=== PATIENT | male | born 1960 | race African-American/Black ===

== ENCOUNTER 2020-09-01 14:00 | Inpatient (IN) | payer OTHER ==
[2020-09-01] MEDS ORDERED: MENTHOL/PHENOL 1 EACH UD MM PRN (14:08)
[2020-09-01] MEDS ORDERED: guaiFENesin 200 MG/10 ML 10 ML UNIT-DOSE CUPS PO PRN (14:08)
[2020-09-01] MEDS ORDERED: MAG HYDROX/AL HYDROX/SIMETH 30 ML UNIT-DOSE CUP PO PRN (14:08)
[2020-09-01] MEDS ORDERED: ACETAMINOPHEN 325 MG TABLET (FP) PO PRN (14:08)
[2020-09-01] MEDS ORDERED: MAGNESIUM CITRATE 300 ML BOTTLE PO PRN (14:08)
[2020-09-01] MEDS ORDERED: NICOTINE POLACRILEX 2 MG GUM BUC PRN (14:08)
[2020-09-01] MEDS ORDERED: P-EPHED 60MG/TRIPROLIDI 2.5MG TABLET PO PRN (14:08)
[2020-09-01] MEDS ORDERED: MAGNESIUM HYDROX 2400MG/30ML ORAL SUSPENSION 30 ML CUP PO PRN (14:08)
[2020-09-01] MEDS ORDERED: LOPERAMIDE HCL 2 MG CAPSULE PO PRN (14:08)
[2020-09-01] MEDS ORDERED: PNEUMOC 13-VAL CONJ-DIP CRM/PF 0.5 ML DISP.SYRIN IM ONE (14:35)
[2020-09-01] MEDS: MELATONIN 5 MG TABLETS PO SCH (22:02)
[2020-09-01] MEDS: THIAMINE HCL 100 MG TABLET (FP) PO SCH (22:02)
[2020-09-01] MEDS: SENNOSIDES 8.6MG TABLET (FP) PO SCH (22:02)
[2020-09-02] MEDS: NICOTINE 7 MG/24 HOURS TOPICAL PATCH TD SCH (09:40)
[2020-09-02] MEDS: PRENATAL VITAMINS W/ FOLIC ACID TABLET (FP) PO SCH (09:40)
[2020-09-02] MEDS: hydrOXYzine PAMOATE 25 MG CAPSULE (FP) PO PRN (09:40)
[2020-09-02] MEDS: METHOCARBAMOL 500 MG TABLET PO PRN (09:41)
[2020-09-02] MEDS ORDERED: PNEUMOCOCCAL 23 VACCINE 0.5 ML VIAL IM ONE (12:00)
[2020-09-02] MEDS: SENNOSIDES 8.6MG TABLET (FP) PO SCH (23:50)
[2020-09-02] MEDS: THIAMINE HCL 100 MG TABLET (FP) PO SCH (23:50)
[2020-09-02] MEDS: MELATONIN 5 MG TABLETS PO SCH (23:50)
[2020-09-03] MEDS: hydrOXYzine PAMOATE 25 MG CAPSULE (FP) PO PRN ×2 (09:35→21:24)
[2020-09-03] MEDS: PRENATAL VITAMINS W/ FOLIC ACID TABLET (FP) PO SCH (09:35)
[2020-09-03] MEDS: NICOTINE 7 MG/24 HOURS TOPICAL PATCH TD SCH (09:35)
[2020-09-03] MEDS: METHOCARBAMOL 500 MG TABLET PO PRN ×2 (09:36→21:24)
[2020-09-03] MEDS: SENNOSIDES 8.6MG TABLET (FP) PO SCH (21:24)
[2020-09-03] MEDS: THIAMINE HCL 100 MG TABLET (FP) PO SCH (21:24)
[2020-09-03] MEDS: MELATONIN 5 MG TABLETS PO SCH (21:24)
[2020-09-04] MEDS: PRENATAL VITAMINS W/ FOLIC ACID TABLET (FP) PO SCH (09:50)
[2020-09-04] MEDS: NICOTINE 7 MG/24 HOURS TOPICAL PATCH TD SCH (09:50)
[2020-09-04] MEDS: IBUPROFEN 400 MG TABLET (FP) PO PRN ×2 (09:51→21:44)
[2020-09-04] MEDS: METHOCARBAMOL 500 MG TABLET PO PRN ×2 (09:51→21:44)
[2020-09-04] MEDS: SENNOSIDES 8.6MG TABLET (FP) PO SCH (21:44)
[2020-09-04] MEDS: hydrOXYzine PAMOATE 25 MG CAPSULE (FP) PO PRN (21:44)
[2020-09-04] MEDS: MELATONIN 5 MG TABLETS PO SCH (21:44)
[2020-09-04] MEDS: THIAMINE HCL 100 MG TABLET (FP) PO SCH (21:44)
[2020-09-05] MEDS: PRENATAL VITAMINS W/ FOLIC ACID TABLET (FP) PO SCH (09:36)
[2020-09-05] MEDS: IBUPROFEN 400 MG TABLET (FP) PO PRN ×2 (09:37→21:39)
[2020-09-05] MEDS: NICOTINE 7 MG/24 HOURS TOPICAL PATCH TD SCH (09:37)
[2020-09-05] MEDS: METHOCARBAMOL 500 MG TABLET PO PRN ×2 (09:37→21:39)
[2020-09-05] MEDS: SENNOSIDES 8.6MG TABLET (FP) PO SCH (21:40)
[2020-09-05] MEDS: MELATONIN 5 MG TABLETS PO SCH (21:40)
[2020-09-05] MEDS: THIAMINE HCL 100 MG TABLET (FP) PO SCH (21:41)
[2020-09-06] MEDS: IBUPROFEN 400 MG TABLET (FP) PO PRN ×2 (09:39→21:40)
[2020-09-06] MEDS: PRENATAL VITAMINS W/ FOLIC ACID TABLET (FP) PO SCH (09:40)
[2020-09-06] MEDS: METHOCARBAMOL 500 MG TABLET PO PRN ×2 (09:40→21:39)
[2020-09-06] MEDS: NICOTINE 7 MG/24 HOURS TOPICAL PATCH TD SCH (09:41)
[2020-09-06] MEDS: MELATONIN 5 MG TABLETS PO SCH (21:39)
[2020-09-06] MEDS: hydrOXYzine PAMOATE 25 MG CAPSULE (FP) PO PRN (21:39)
[2020-09-06] MEDS: THIAMINE HCL 100 MG TABLET (FP) PO SCH (21:39)
[2020-09-06] MEDS: SENNOSIDES 8.6MG TABLET (FP) PO SCH (21:39)
[2020-09-07] MEDS: NICOTINE 7 MG/24 HOURS TOPICAL PATCH TD SCH (09:46)
[2020-09-07] MEDS: IBUPROFEN 400 MG TABLET (FP) PO PRN ×2 (09:47→21:54)
[2020-09-07] MEDS: hydrOXYzine PAMOATE 25 MG CAPSULE (FP) PO PRN ×2 (09:47→21:53)
[2020-09-07] MEDS: METHOCARBAMOL 500 MG TABLET PO PRN ×2 (09:47→21:53)
[2020-09-07] MEDS: PRENATAL VITAMINS W/ FOLIC ACID TABLET (FP) PO SCH (09:47)
[2020-09-07] MEDS: SENNOSIDES 8.6MG TABLET (FP) PO SCH (21:54)
[2020-09-07] MEDS: MELATONIN 5 MG TABLETS PO SCH (21:54)
[2020-09-07] MEDS: THIAMINE HCL 100 MG TABLET (FP) PO SCH (21:54)
[2020-09-08] MEDS: PRENATAL VITAMINS W/ FOLIC ACID TABLET (FP) PO SCH (09:43)
[2020-09-08] MEDS: NICOTINE 7 MG/24 HOURS TOPICAL PATCH TD SCH (09:43)
[2020-09-08] MEDS: METHOCARBAMOL 500 MG TABLET PO PRN ×2 (09:44→21:32)
[2020-09-08] MEDS: IBUPROFEN 400 MG TABLET (FP) PO PRN ×2 (09:44→21:32)
[2020-09-08] MEDS: hydrOXYzine PAMOATE 25 MG CAPSULE (FP) PO PRN ×2 (09:44→21:31)
[2020-09-08] MEDS: THIAMINE HCL 100 MG TABLET (FP) PO SCH (21:31)
[2020-09-08] MEDS: MELATONIN 5 MG TABLETS PO SCH (21:31)
[2020-09-08] MEDS: SENNOSIDES 8.6MG TABLET (FP) PO SCH (21:31)
[2020-09-09] MEDS: PRENATAL VITAMINS W/ FOLIC ACID TABLET (FP) PO SCH (09:50)
[2020-09-09] MEDS: METHOCARBAMOL 500 MG TABLET PO PRN ×2 (09:50→21:29)
[2020-09-09] MEDS: NICOTINE 7 MG/24 HOURS TOPICAL PATCH TD SCH (09:50)
[2020-09-09] MEDS: hydrOXYzine PAMOATE 25 MG CAPSULE (FP) PO PRN ×2 (09:50→21:29)
[2020-09-09] MEDS: IBUPROFEN 400 MG TABLET (FP) PO PRN ×2 (09:50→21:29)
[2020-09-09] MEDS: THIAMINE HCL 100 MG TABLET (FP) PO SCH (21:29)
[2020-09-09] MEDS: SENNOSIDES 8.6MG TABLET (FP) PO SCH (21:29)
[2020-09-09] MEDS: MELATONIN 5 MG TABLETS PO SCH (21:29)
[2020-09-10] MEDS: PRENATAL VITAMINS W/ FOLIC ACID TABLET (FP) PO SCH (09:35)
[2020-09-10] MEDS: NICOTINE 7 MG/24 HOURS TOPICAL PATCH TD SCH (09:35)
[2020-09-10] MEDS: METHOCARBAMOL 500 MG TABLET PO PRN ×2 (09:36→21:17)
[2020-09-10] MEDS: IBUPROFEN 400 MG TABLET (FP) PO PRN ×2 (09:36→21:18)
[2020-09-10] MEDS: THIAMINE HCL 100 MG TABLET (FP) PO SCH (21:17)
[2020-09-10] MEDS: MELATONIN 5 MG TABLETS PO SCH (21:17)
[2020-09-10] MEDS: hydrOXYzine PAMOATE 25 MG CAPSULE (FP) PO PRN (21:17)
[2020-09-10] MEDS: SENNOSIDES 8.6MG TABLET (FP) PO SCH (21:18)
[2020-09-11] MEDS: NICOTINE 7 MG/24 HOURS TOPICAL PATCH TD SCH (10:03)
[2020-09-11] MEDS: METHOCARBAMOL 500 MG TABLET PO PRN ×2 (10:04→21:31)
[2020-09-11] MEDS: PRENATAL VITAMINS W/ FOLIC ACID TABLET (FP) PO SCH (10:04)
[2020-09-11] MEDS: IBUPROFEN 400 MG TABLET (FP) PO PRN ×2 (10:04→21:31)
[2020-09-11] MEDS: hydrOXYzine PAMOATE 25 MG CAPSULE (FP) PO PRN ×2 (10:04→21:30)
[2020-09-11] MEDS: MELATONIN 5 MG TABLETS PO SCH (21:30)
[2020-09-11] MEDS: SENNOSIDES 8.6MG TABLET (FP) PO SCH (21:30)
[2020-09-11] MEDS: THIAMINE HCL 100 MG TABLET (FP) PO SCH (21:31)
[2020-09-12] MEDS: PRENATAL VITAMINS W/ FOLIC ACID TABLET (FP) PO SCH (09:28)
[2020-09-12] MEDS: IBUPROFEN 400 MG TABLET (FP) PO PRN ×2 (09:28→21:21)
[2020-09-12] MEDS: METHOCARBAMOL 500 MG TABLET PO PRN ×2 (09:28→21:23)
[2020-09-12] MEDS: NICOTINE 7 MG/24 HOURS TOPICAL PATCH TD SCH (09:28)
[2020-09-12] MEDS: hydrOXYzine PAMOATE 25 MG CAPSULE (FP) PO PRN ×2 (09:28→21:19)
[2020-09-12] MEDS: MELATONIN 5 MG TABLETS PO SCH (21:19)
[2020-09-12] MEDS: SENNOSIDES 8.6MG TABLET (FP) PO SCH (21:19)
[2020-09-12] MEDS: THIAMINE HCL 100 MG TABLET (FP) PO SCH (21:20)
[2020-09-13] MEDS: METHOCARBAMOL 500 MG TABLET PO PRN ×2 (09:39→21:29)
[2020-09-13] MEDS: PRENATAL VITAMINS W/ FOLIC ACID TABLET (FP) PO SCH (09:39)
[2020-09-13] MEDS: NICOTINE 7 MG/24 HOURS TOPICAL PATCH TD SCH (09:39)
[2020-09-13] MEDS: IBUPROFEN 400 MG TABLET (FP) PO PRN ×2 (09:39→21:30)
[2020-09-13] MEDS: MELATONIN 5 MG TABLETS PO SCH (21:29)
[2020-09-13] MEDS: hydrOXYzine PAMOATE 25 MG CAPSULE (FP) PO PRN (21:29)
[2020-09-13] MEDS: SENNOSIDES 8.6MG TABLET (FP) PO SCH (21:29)
[2020-09-13] MEDS: THIAMINE HCL 100 MG TABLET (FP) PO SCH (21:30)
[2020-09-14] MEDS: IBUPROFEN 400 MG TABLET (FP) PO PRN (09:38)
[2020-09-14] MEDS: METHOCARBAMOL 500 MG TABLET PO PRN ×2 (09:38→21:16)
[2020-09-14] MEDS: PRENATAL VITAMINS W/ FOLIC ACID TABLET (FP) PO SCH (09:38)
[2020-09-14] MEDS: NICOTINE 7 MG/24 HOURS TOPICAL PATCH TD SCH (09:39)
[2020-09-14] MEDS: MELATONIN 5 MG TABLETS PO SCH (21:16)
[2020-09-14] MEDS: THIAMINE HCL 100 MG TABLET (FP) PO SCH (21:16)
[2020-09-14] MEDS: IBUPROFEN 600 MG TABLET (FP) PO PRN (21:16)
[2020-09-14] MEDS: SENNOSIDES 8.6MG TABLET (FP) PO SCH (21:17)
[2020-09-15 06:56] VITALS: BP 150/96; PULSE 108; TEMP 97.7
[2020-09-15] MEDS: METHOCARBAMOL 500 MG TABLET PO PRN (09:35)
[2020-09-15] MEDS: IBUPROFEN 600 MG TABLET (FP) PO PRN (09:35)
[2020-09-15] MEDS: PRENATAL VITAMINS W/ FOLIC ACID TABLET (FP) PO SCH (09:35)
[2020-09-15] MEDS: NICOTINE 7 MG/24 HOURS TOPICAL PATCH TD SCH (09:36)
== END 2020-09-15 12:30 | disposition home or self-care (01) | DRG 772 ==
LOC: YASAS 14:00 → Y5N 14:01
PROVIDERS: ADMIT Allergy & Immunology; ATTEND Allergy & Immunology
PROC: HZ42ZZZ Group Counseling for Substance Abuse Treatment, Cognitive-Behavioral (ICD-10-PCS; principal; 2020-09-01)
DX: F10.20 Alcohol dependence, uncomplicated (principal); F14.20 Cocaine dependence, uncomplicated; F17.210 Nicotine dependence, cigarettes, uncomplicated; Z87.81 Personal history of (healed) traumatic fracture; Z99.89 Dependence on other enabling machines and devices

== ENCOUNTER 2021-03-15 14:12 | Inpatient (IN) | payer OTHER ==
[2021-03-15] MEDS ORDERED: SODIUM CHLORIDE 0.9% 500 ML INFUS.BAG IV ONE (14:40)
[2021-03-15] MEDS ORDERED: ACETAMINOPHEN 1000 MG/100 ML VIAL (NON FORMULARY) IVPB ONE (14:51)
[2021-03-15] MEDS ORDERED: VANCOMYCIN 1 GM in D5W (PRE-DOCKED) 1,000 MG/250 ML IVPB ONE ×2 (14:52→18:45)
[2021-03-15] MEDS ORDERED: PIPERACILLIN/TAZOB 3.375 GM 3.375 GM in DEXTROSE 5%-WATER - 50 ML IVPB ONE (14:53)
[2021-03-15] MEDS ORDERED: ACETAMINOPHEN INJECTION 100 ML IVPB ONE (15:13)
[2021-03-15] MEDS ORDERED: VANCOMYCIN 1 GRAM (PRE-DOCKED) 1,000 MG/250 ML BAG IVPB ONE (15:13)
[2021-03-15] MEDS ORDERED: PIPERACILLIN/TAZOB 3.375 GM 3.375 GM/50 ML BAG IVPB ONE (15:14)
[2021-03-15 15:16] LABS: BASO % 0.7 % (0-2.0); EOS % 2.9 % (0-4.5); HEMATOCRIT 33.2 % (35.4-49); HEMOGLOBIN 11.1 GM/dL (11.7-16.9); LYMPH % 34.7 % (8-40); MCH 31.6 pg (25.7-33.7); MCHC 33.4 g/dl (32.0-35.9); MEAN CELL VOLUME 94.7 fl (80-96); MEAN PLT VOLUME 7.1 fl (7.5-11.1); MONO % 9.7 % (3.8-10.2); PLATELET COUNT 267 K/MM3 (134-434); RBC 3.51 M/mm3 (4.00-5.60); RDW 16.1 % (11.9-15.9); WHITE BLOOD COUNT 4.2 K/mm3 (4.0-10.0)
[2021-03-15 15:30] LABS: CALCIUM 8.3 mg/dL (8.5-10.1)
[2021-03-15 15:31] LABS: ALBUMIN 2.9 g/dl (3.4-5.0); BLOOD UREA NITROGEN 6.1 mg/dL (7-18)
[2021-03-15 15:34] LABS: CREATININE 0.6 mg/dL (0.55-1.3)
[2021-03-15 15:36] LABS: BILIRUBIN,TOTAL 0.2 mg/dL (0.2-1); TOT PROT 7.3 g/dl (6.4-8.2)
[2021-03-15 15:37] LABS: LACTIC ACID 2.4 mmol/L (0.4-2.0)
[2021-03-15 16:02] LABS: ERYTHROCYTE SEDIMENTATION RATE 45 mm/hr (0-20)
[2021-03-15] MEDS ORDERED: chlordiazePOXIDE HCL 25 MG CAPSULE PO ONE (16:42)
[2021-03-15] MEDS ORDERED: chlordiazePOXIDE HCL 25 MG CAPSULE ONE (17:02)
[2021-03-15] MEDS ORDERED: POTASSIUM CHLORIDE TABS 20 MEQ TABLET.ER (FP) PO ONE ×2 (18:05→18:27)
[2021-03-15] MEDS ORDERED: FOLIC ACID 1 MG TABLET (FP) PO ONE (18:08)
[2021-03-15] MEDS ORDERED: FOLIC ACID 1 MG TABLET (FP) ONE (18:27)
[2021-03-15] MEDS ORDERED: chlordiazePOXIDE HCL 25 MG CAPSULE PO PRN (18:32)
[2021-03-15] MEDS: LACTATED RINGERS SOLUTION 1,000 ML/1,000 ML INFUS.BAG IV SCH (23:19)
[2021-03-15] MEDS: chlordiazePOXIDE HCL 25 MG CAPSULE PO SCH (23:20)
[2021-03-16 00:20] VITALS: BMI 31.9
[2021-03-16] MEDS ORDERED: PIPERACILLIN/TAZOBACTAM 3.375 GM VIAL IVPB ONE ×2 (00:45→09:51)
[2021-03-16] MEDS ORDERED: DEXTROSE 5%-WATER - 50 ML IVPB ONE ×2 (00:45→09:51)
[2021-03-16] MEDS: PIPERACILLIN/TAZOB 3.375 GM 3.375 GM in DEXTROSE 5%-WATER - 50 ML IVPB SCH ×3 (01:18→15:38)
[2021-03-16 01:57] LABS: METHADONE, UR NEGATIVE ng/ml (CUTOFF=300); OPIATES, URI NEGATIVE ng/ml (CUTOFF=300); URINE AMPHETAMINES NEGATIVE ng/ml (CUTOFF=500); URINE BARBITURATES NEGATIVE ng/ml (CUTOFF=200); URINE BENZODIAZEPINES NEGATIVE ng/ml (CUTOFF=200)
[2021-03-16 01:58] LABS: PHENCYCLIDINE,URINE NEGATIVE ng/ml (CUTOFF=25)
[2021-03-16 02:03] LABS: COCAINE, UR POSITIVE ng/ml (CUTOFF=300)
[2021-03-16] MEDS: chlordiazePOXIDE HCL 25 MG CAPSULE PO SCH ×4 (05:21→22:34)
[2021-03-16 08:42] LABS: HEMATOCRIT 32.7 % (35.4-49); HEMOGLOBIN 11.2 GM/dL (11.7-16.9); MCH 32.3 pg (25.7-33.7); MCHC 34.2 g/dl (32.0-35.9); MEAN CELL VOLUME 94.3 fl (80-96); MEAN PLT VOLUME 7.4 fl (7.5-11.1); PLATELET COUNT 267 K/MM3 (134-434); RBC 3.47 M/mm3 (4.00-5.60); RDW 16.2 % (11.9-15.9); WHITE BLOOD COUNT 4.4 K/mm3 (4.0-10.0)
[2021-03-16 09:04] LABS: BLOOD UREA NITROGEN 5.5 mg/dL (7-18); MAGNESIUM 1.7 mg/dL (1.8-2.4)
[2021-03-16 09:07] LABS: CREATININE 0.7 mg/dL (0.55-1.3); PHOSPHOROUS 3.3 mg/dL (2.5-4.9)
[2021-03-16] MEDS ORDERED: VANCOMYCIN 1 GM in D5W (PRE-DOCKED) 1,000 MG/250 ML IVPB SCH (10:00)
[2021-03-16] MEDS: MULTIVITAMINS (DAILY MVI) TABLET (FP) PO SCH (10:07)
[2021-03-16] MEDS: THIAMINE HCL 100 MG TABLET (FP) PO SCH (10:07)
[2021-03-16] MEDS: ENOXAPARIN NA (PORCINE) 40 MG/0.4 ML DISP.SYRIN SQ SCH (10:07)
[2021-03-16] MEDS ORDERED: MAGNESIUM SULF 50% (8.12 MEQ/2 ML-1 GM VIAL) IVPB ONE (14:00)
[2021-03-16] MEDS: LACTATED RINGERS SOLUTION 1,000 ML/1,000 ML INFUS.BAG IV SCH ×2 (14:06→19:17)
[2021-03-16] MEDS: CEFAZOLIN 2 GM/D5W 2 GM/50 ML ML IVPB SCH ×2 (14:39→17:52)
[2021-03-17] MEDS: CEFAZOLIN 2 GM/D5W 2 GM/50 ML ML IVPB SCH ×3 (01:13→17:34)
[2021-03-17] MEDS: chlordiazePOXIDE HCL 25 MG CAPSULE PO SCH ×4 (05:51→22:17)
[2021-03-17 09:20] LABS: HEMATOCRIT 34.6 % (35.4-49); HEMOGLOBIN 11.7 GM/dL (11.7-16.9); MEAN CELL VOLUME 94.2 fl (80-96); MEAN PLT VOLUME 7.3 fl (7.5-11.1); PLATELET COUNT 264 K/MM3 (134-434); RBC 3.67 M/mm3 (4.00-5.60); RDW 16.2 % (11.9-15.9); WHITE BLOOD COUNT 4.7 K/mm3 (4.0-10.0)
[2021-03-17] MEDS: ENOXAPARIN NA (PORCINE) 40 MG/0.4 ML DISP.SYRIN SQ SCH (09:39)
[2021-03-17] MEDS: MULTIVITAMINS (DAILY MVI) TABLET (FP) PO SCH (09:39)
[2021-03-17] MEDS: THIAMINE HCL 100 MG TABLET (FP) PO SCH (09:39)
[2021-03-17] MEDS: LACTATED RINGERS SOLUTION 1,000 ML/1,000 ML INFUS.BAG IV SCH (09:39)
[2021-03-17 09:57] LABS: ALBUMIN 2.8 g/dl (3.4-5.0); BLOOD UREA NITROGEN 7.9 mg/dL (7-18); CALCIUM 8.6 mg/dL (8.5-10.1)
[2021-03-17 09:58] LABS: MAGNESIUM 1.7 mg/dL (1.8-2.4)
[2021-03-17 10:00] LABS: CREATININE 0.8 mg/dL (0.55-1.3)
[2021-03-17 10:01] LABS: BILIRUBIN,TOTAL 0.5 mg/dL (0.2-1)
[2021-03-17] MEDS: amLODIPine BESYLATE 10 MG TABLET (FP) PO SCH (13:54)
[2021-03-17] MEDS: AMINO ACIDS/PROTEIN HYDROLYS 30 ML LIQUID.PKT PO SCH (17:33)
[2021-03-18] MEDS ORDERED: chlordiazePOXIDE HCL 10 MG CAPSULE PO PRN
[2021-03-18] MEDS: CEFAZOLIN 2 GM/D5W 2 GM/50 ML ML IVPB SCH ×3 (02:15→17:43)
[2021-03-18] MEDS: chlordiazePOXIDE HCL 10 MG CAPSULE PO SCH ×4 (05:30→22:31)
[2021-03-18] MEDS: AMINO ACIDS/PROTEIN HYDROLYS 30 ML LIQUID.PKT PO SCH ×2 (08:29→17:44)
[2021-03-18 08:49] LABS: BASO % 0.7 % (0-2.0); EOS % 2.4 % (0-4.5); HEMOGLOBIN 11.7 GM/dL (11.7-16.9); LYMPH % 31.6 % (8-40); MCH 31.7 pg (25.7-33.7); MCHC 33.4 g/dl (32.0-35.9); MEAN CELL VOLUME 94.7 fl (80-96); MEAN PLT VOLUME 7.7 fl (7.5-11.1); MONO % 8.8 % (3.8-10.2); NEUT % 56.5 % (42.8-82.8); PLATELET COUNT 266 K/MM3 (134-434); RDW 15.8 % (11.9-15.9); WHITE BLOOD COUNT 4.9 K/mm3 (4.0-10.0)
[2021-03-18 09:09] LABS: ALBUMIN 3.1 g/dl (3.4-5.0); BLOOD UREA NITROGEN 12.6 mg/dL (7-18); CALCIUM 8.6 mg/dL (8.5-10.1)
[2021-03-18 09:12] LABS: CREATININE 0.7 mg/dL (0.55-1.3)
[2021-03-18 09:14] LABS: BILIRUBIN,TOTAL 0.4 mg/dL (0.2-1); TOT PROT 7.5 g/dl (6.4-8.2)
[2021-03-18] MEDS: MULTIVITAMINS (DAILY MVI) TABLET (FP) PO SCH (10:13)
[2021-03-18] MEDS: amLODIPine BESYLATE 10 MG TABLET (FP) PO SCH (10:13)
[2021-03-18] MEDS: ENOXAPARIN NA (PORCINE) 40 MG/0.4 ML DISP.SYRIN SQ SCH ×2 (10:13→10:17)
[2021-03-18] MEDS: THIAMINE HCL 100 MG TABLET (FP) PO SCH (10:13)
[2021-03-18] MEDS ORDERED: DEXTROSE 5%-WATER 100 ML IVPB ONE (18:13)
[2021-03-18] MEDS: CEFTRIAXONE 2 GM in DEXTROSE 5%-WATER 100 ML IVPB SCH (18:15)
[2021-03-19] MEDS ORDERED: chlordiazePOXIDE HCL 10 MG CAPSULE PO SCH (05:00)
[2021-03-19] MEDS: chlordiazePOXIDE HCL 10 MG CAPSULE PO SCH ×2 (05:49→17:49)
[2021-03-19 08:49] LABS: BASO % 0.3 % (0-2.0); EOS % 2.3 % (0-4.5); HEMATOCRIT 35.4 % (35.4-49); HEMOGLOBIN 11.8 GM/dL (11.7-16.9); LYMPH % 31.3 % (8-40); MCH 31.7 pg (25.7-33.7); MCHC 33.3 g/dl (32.0-35.9); MEAN CELL VOLUME 95.3 fl (80-96); MEAN PLT VOLUME 7.6 fl (7.5-11.1); MONO % 7.9 % (3.8-10.2); NEUT % 58.2 % (42.8-82.8); PLATELET COUNT 262 K/MM3 (134-434); RBC 3.72 M/mm3 (4.00-5.60); RDW 16.3 % (11.9-15.9); WHITE BLOOD COUNT 4.6 K/mm3 (4.0-10.0)
[2021-03-19] MEDS ORDERED: DEXTROSE 5%-WATER 100 ML IVPB ONE (09:10)
[2021-03-19 09:18] LABS: ALBUMIN 3.1 g/dl (3.4-5.0); BLOOD UREA NITROGEN 16.6 mg/dL (7-18); CALCIUM 8.4 mg/dL (8.5-10.1)
[2021-03-19] MEDS: ENOXAPARIN NA (PORCINE) 40 MG/0.4 ML DISP.SYRIN SQ SCH ×2 (09:19→09:35)
[2021-03-19] MEDS: AMINO ACIDS/PROTEIN HYDROLYS 30 ML LIQUID.PKT PO SCH ×3 (09:19→17:49)
[2021-03-19] MEDS: amLODIPine BESYLATE 10 MG TABLET (FP) PO SCH (09:20)
[2021-03-19] MEDS: CEFTRIAXONE 2 GM in DEXTROSE 5%-WATER 100 ML IVPB SCH (09:20)
[2021-03-19] MEDS: MULTIVITAMINS (DAILY MVI) TABLET (FP) PO SCH (09:21)
[2021-03-19] MEDS: THIAMINE HCL 100 MG TABLET (FP) PO SCH (09:21)
[2021-03-19 09:22] LABS: CREATININE 0.7 mg/dL (0.55-1.3)
[2021-03-19 09:23] LABS: BILIRUBIN,TOTAL 0.5 mg/dL (0.2-1); TOT PROT 7.5 g/dl (6.4-8.2)
[2021-03-20] MEDS ORDERED: chlordiazePOXIDE HCL 10 MG CAPSULE PO ONE (05:00)
[2021-03-20] MEDS: AMINO ACIDS/PROTEIN HYDROLYS 30 ML LIQUID.PKT PO SCH ×2 (08:00→17:13)
[2021-03-20 09:02] LABS: BASO % 0.4 % (0-2.0); EOS % 2.8 % (0-4.5); HEMATOCRIT 37.5 % (35.4-49); HEMOGLOBIN 12.5 GM/dL (11.7-16.9); LYMPH % 30.7 % (8-40); MCH 31.7 pg (25.7-33.7); MCHC 33.3 g/dl (32.0-35.9); MEAN CELL VOLUME 95.3 fl (80-96); MEAN PLT VOLUME 7.7 fl (7.5-11.1); MONO % 8.5 % (3.8-10.2); NEUT % 57.6 % (42.8-82.8); PLATELET COUNT 274 K/MM3 (134-434); RBC 3.94 M/mm3 (4.00-5.60); RDW 16.1 % (11.9-15.9); WHITE BLOOD COUNT 4.8 K/mm3 (4.0-10.0)
[2021-03-20] MEDS ORDERED: DEXTROSE 5%-WATER 100 ML IVPB ONE (09:02)
[2021-03-20 09:33] LABS: BLOOD UREA NITROGEN 14.8 mg/dL (7-18)
[2021-03-20 09:43] LABS: CREATININE 0.6 mg/dL (0.55-1.3)
[2021-03-20] MEDS ORDERED: PT OWN MED DRAWER 7, Y5N ONE (09:49)
[2021-03-20] MEDS: MULTIVITAMINS (DAILY MVI) TABLET (FP) PO SCH (10:13)
[2021-03-20] MEDS: amLODIPine BESYLATE 10 MG TABLET (FP) PO SCH (10:13)
[2021-03-20] MEDS: ENOXAPARIN NA (PORCINE) 40 MG/0.4 ML DISP.SYRIN SQ SCH ×2 (10:14→10:21)
[2021-03-20] MEDS: CEFTRIAXONE 2 GM in DEXTROSE 5%-WATER 100 ML IVPB SCH (10:14)
[2021-03-20] MEDS: THIAMINE HCL 100 MG TABLET (FP) PO SCH (10:14)
[2021-03-21 08:47] VITALS: BP 118/73; PULSE 90; TEMP 97.8
[2021-03-21] MEDS: MULTIVITAMINS (DAILY MVI) TABLET (FP) PO SCH (08:59)
[2021-03-21] MEDS: THIAMINE HCL 100 MG TABLET (FP) PO SCH (08:59)
[2021-03-21] MEDS: amLODIPine BESYLATE 10 MG TABLET (FP) PO SCH (08:59)
[2021-03-21] MEDS: AMINO ACIDS/PROTEIN HYDROLYS 30 ML LIQUID.PKT PO SCH (08:59)
[2021-03-21] MEDS: ENOXAPARIN NA (PORCINE) 40 MG/0.4 ML DISP.SYRIN SQ SCH ×2 (09:03→09:04)
== END 2021-03-21 10:29 | disposition left against medical advice (07) | DRG 383 ==
LOC: JER 14:12 → JERBED 15:42 → J8W 22:27
PROVIDERS: ATTEND Internal Medicine
DX: L03.116 Cellulitis of left lower limb (principal); F10.239 Alcohol dependence with withdrawal, unspecified; Z59.0 Homelessness; E78.5 Hyperlipidemia, unspecified; F17.210 Nicotine dependence, cigarettes, uncomplicated; I10 Essential (primary) hypertension; F14.20 Cocaine dependence, uncomplicated; L97.829 Non-pressure chronic ulcer of other part of left lower leg with unspecified severity; E83.42 Hypomagnesemia
CPT/HCPCS: 36415; 73590-TC-LT-FY; 73610-TC-LT-FY; 73630-TC-LT; 80048; 80053; 80307; 82607; 82728; 82746; 82962; 83036; 83540; 83550; 83605; 83735; 84100; 84466; 85025; 85027; 85651; 86140; 86780; 87040; 87070; 87186; 87205; 93005; 93010; 93971-TC; 99285-25; C9803; J0131; U0003; U0005

== ENCOUNTER 2021-08-16 15:06 | Inpatient (IN) | payer OTHER ==
[2021-08-16] MEDS ORDERED: MAGNESIUM CITRATE 300 ML BOTTLE PO PRN (18:48)
[2021-08-16] MEDS ORDERED: IBUPROFEN 400 MG TABLET (FP) PO PRN (18:48)
[2021-08-16] MEDS ORDERED: BISMUTH SUBSALICYLATE 524 MG/30 ML PO PRN (18:48)
[2021-08-16] MEDS ORDERED: MAGNESIUM HYDROX 2400MG/30ML ORAL SUSPENSION 30 ML CUP PO PRN (18:48)
[2021-08-16] MEDS ORDERED: MAG HYDROX/AL HYDROX/SIMETH 30 ML UNIT-DOSE CUP PO PRN (18:48)
[2021-08-16] MEDS ORDERED: ACETAMINOPHEN 325 MG TABLET (FP) PO PRN ×2 (18:48)
[2021-08-16] MEDS ORDERED: LORazepam 1 MG TABLET PO PRN (18:48)
[2021-08-16] MEDS ORDERED: MENTHOL/PHENOL 1 EACH UD MM PRN (18:48)
[2021-08-16] MEDS ORDERED: ONDANSETRON *ODT* 4 MG TABLET SL PRN (18:48)
[2021-08-16 20:28] VITALS: BMI 34.7
[2021-08-17] MEDS: LORazepam 2 MG TABLET PO SCH ×7 (00:34→22:37)
[2021-08-17] MEDS ORDERED: hydrOXYzine PAMOATE 25 MG CAPSULE (FP) PO ONE (00:35)
[2021-08-17] MEDS: hydrOXYzine PAMOATE 25 MG CAPSULE (FP) PO SCH ×6 (00:39→22:38)
[2021-08-17] MEDS: MELATONIN 5 MG TABLETS PO SCH ×2 (00:39→22:37)
[2021-08-17] MEDS: THIAMINE HCL 100 MG TABLET (FP) PO SCH ×2 (00:39→22:39)
[2021-08-17] MEDS: PRENATAL VITAMINS W/ FOLIC ACID TABLET (FP) PO SCH (10:15)
[2021-08-17 11:46] LABS: CALCIUM 8.4 mg/dL (8.5-10.1)
[2021-08-17 11:47] LABS: ALBUMIN 2.7 g/dl (3.4-5.0); BLOOD UREA NITROGEN 8.9 mg/dL (7-18)
[2021-08-17 11:50] LABS: BILIRUBIN,TOTAL 0.7 mg/dL (0.2-1); CREATININE 0.7 mg/dL (0.55-1.3); HEMOGLOBIN 11.1 GM/dL (11.7-16.9); MCH 32.1 pg (25.7-33.7); MCHC 33.7 g/dl (32.0-35.9); MEAN CELL VOLUME 95.5 fl (80-96); MEAN PLT VOLUME 8.3 fl (7.5-11.1); PLATELET COUNT 208 10^3/uL (134-434); RBC 3.45 M/mm3 (4.00-5.60); RDW 16.7 % (11.9-15.9); TOT PROT 6.9 g/dl (6.4-8.2); WHITE BLOOD COUNT 4.3 K/mm3 (4.0-10.0)
[2021-08-18] MEDS: LORazepam 1 MG TABLET PO SCH ×4 (07:13→22:08)
[2021-08-18] MEDS: hydrOXYzine PAMOATE 25 MG CAPSULE (FP) PO SCH ×5 (07:14→22:35)
[2021-08-18] MEDS: PRENATAL VITAMINS W/ FOLIC ACID TABLET (FP) PO SCH (11:03)
[2021-08-18 18:09] LABS: PH,URINE 8.5 (5.0-8.0); URINE APPEARANCE CLEAR; URINE BILIRUBIN NEGATIVE (NEGATIVE); URINE COLOR YELLOW; URINE GLUCOSE (UA) NEGATIVE (NEGATIVE); URINE KETONE NEGATIVE (NEGATIVE); URINE LEUK ESTERASE NEGATIVE (NEGATIVE); URINE NITRITE NEGATIVE (NEGATIVE); URINE PROTEIN NEGATIVE (NEGATIVE); URINE UROBILINOGEN 0.2 mg/dL (0.2-1.0)
[2021-08-18] MEDS: METHOCARBAMOL 500 MG TABLET PO PRN (21:03)
[2021-08-18] MEDS: MELATONIN 5 MG TABLETS PO SCH (21:32)
[2021-08-18] MEDS: THIAMINE HCL 100 MG TABLET (FP) PO SCH (21:35)
[2021-08-18] MEDS ORDERED: PHENYLEPHRINE 0.25%/STARCH 1 EACH SUPP.RECT PR SCH (22:00)
[2021-08-18] MEDS: PHENYLEPHRINE 0.25%/STARCH 1 EACH SUPP.RECT PR SCH (22:37)
[2021-08-19] MEDS ORDERED: LORazepam 0.5 MG TABLET PO PRN
[2021-08-19] MEDS: hydrOXYzine PAMOATE 25 MG CAPSULE (FP) PO SCH ×5 (06:37→22:09)
[2021-08-19] MEDS: LORazepam 0.5 MG TABLET PO SCH ×4 (06:37→22:10)
[2021-08-19] MEDS: PHENYLEPHRINE 0.25%/STARCH 1 EACH SUPP.RECT PR SCH ×2 (10:25→22:10)
[2021-08-19] MEDS: METHOCARBAMOL 500 MG TABLET PO PRN (10:26)
[2021-08-19] MEDS: PRENATAL VITAMINS W/ FOLIC ACID TABLET (FP) PO SCH (10:27)
[2021-08-19 12:18] LABS: BASO % 0.2 % (0-2.0); EOS % 1.6 % (0-4.5); MCH 32.3 pg (25.7-33.7); MCHC 34.2 g/dl (32.0-35.9); MEAN CELL VOLUME 94.3 fl (80-96); MEAN PLT VOLUME 8.6 fl (7.5-11.1); MONO % 5.7 % (3.8-10.2); NEUT % 58.5 % (42.8-82.8); PLATELET COUNT 226 10^3/uL (134-434); RBC 3.71 M/mm3 (4.00-5.60); RDW 16.2 % (11.9-15.9); WHITE BLOOD COUNT 5.7 K/mm3 (4.0-10.0)
[2021-08-19 14:51] LABS: PH,URINE 6.5 (5.0-8.0); URINE APPEARANCE CLEAR; URINE BILIRUBIN NEGATIVE (NEGATIVE); URINE COLOR YELLOW; URINE GLUCOSE (UA) NEGATIVE (NEGATIVE); URINE KETONE NEGATIVE (NEGATIVE); URINE LEUK ESTERASE NEGATIVE (NEGATIVE); URINE NITRITE NEGATIVE (NEGATIVE); URINE PROTEIN NEGATIVE (NEGATIVE); URINE UROBILINOGEN 0.2 mg/dL (0.2-1.0)
[2021-08-19] MEDS: MELATONIN 5 MG TABLETS PO SCH (22:09)
[2021-08-19] MEDS: THIAMINE HCL 100 MG TABLET (FP) PO SCH (22:09)
[2021-08-20] MEDS ORDERED: LORazepam 0.5 MG TABLET PO ONE (05:00)
[2021-08-20] MEDS: hydrOXYzine PAMOATE 25 MG CAPSULE (FP) PO SCH ×2 (06:36→10:52)
[2021-08-20] MEDS: METHOCARBAMOL 500 MG TABLET PO PRN (06:36)
[2021-08-20 09:24] VITALS: TEMP 97.1
[2021-08-20] MEDS: PHENYLEPHRINE 0.25%/STARCH 1 EACH SUPP.RECT PR SCH (10:52)
[2021-08-20] MEDS: PRENATAL VITAMINS W/ FOLIC ACID TABLET (FP) PO SCH (10:52)
[2021-08-20 13:37] VITALS: BP 138/96; PULSE 108
== END 2021-08-20 14:59 | disposition other institution (70) | DRG 774 ==
LOC: YASAS 15:06 → Y6N 23:27 → Y3N 08-17 10:06
PROVIDERS: ADMIT Allergy & Immunology; ATTEND Allergy & Immunology
PROC: HZ2ZZZZ Detoxification Services for Substance Abuse Treatment (ICD-10-PCS; principal; 2021-08-16)
DX: F10.230 Alcohol dependence with withdrawal, uncomplicated (principal); F14.20 Cocaine dependence, uncomplicated; F17.210 Nicotine dependence, cigarettes, uncomplicated; E78.5 Hyperlipidemia, unspecified; I10 Essential (primary) hypertension; K64.9 Unspecified hemorrhoids; R60.0 Localized edema; Z99.89 Dependence on other enabling machines and devices; Z86.79 Personal history of other diseases of the circulatory system; Z87.19 Personal history of other diseases of the digestive system
CPT/HCPCS: 36415; 80053; 81003; 85025; 85027; 86780; C9803; U0003; U0005

== ENCOUNTER 2021-08-20 14:59 | Inpatient (IN) | payer OTHER ==
[2021-08-20] MEDS ORDERED: NICOTINE 10 MG CARTRIDGE (INHALER) IH PRN (15:58)
[2021-08-20] MEDS ORDERED: LOPERAMIDE HCL 2 MG CAPSULE PO PRN (15:58)
[2021-08-20] MEDS ORDERED: ACETAMINOPHEN 325 MG TABLET (FP) PO PRN (15:58)
[2021-08-20] MEDS ORDERED: MENTHOL/PHENOL 1 EACH UD MM PRN (15:58)
[2021-08-20] MEDS ORDERED: P-EPHED 60MG/TRIPROLIDI 2.5MG TABLET PO PRN (15:58)
[2021-08-20] MEDS ORDERED: MAGNESIUM CITRATE 300 ML BOTTLE PO PRN (15:58)
[2021-08-20] MEDS ORDERED: MAGNESIUM HYDROX 2400MG/30ML ORAL SUSPENSION 30 ML CUP PO PRN (15:58)
[2021-08-20] MEDS ORDERED: MAG HYDROX/AL HYDROX/SIMETH 30 ML UNIT-DOSE CUP PO PRN (15:58)
[2021-08-20] MEDS: THIAMINE HCL 100 MG TABLET (FP) PO SCH (21:39)
[2021-08-20] MEDS: hydrOXYzine PAMOATE 25 MG CAPSULE (FP) PO PRN (21:39)
[2021-08-20] MEDS: IBUPROFEN 400 MG TABLET (FP) PO PRN (21:39)
[2021-08-20] MEDS: MELATONIN 5 MG TABLETS PO SCH (21:39)
[2021-08-21] MEDS: PRENATAL VITAMINS W/ FOLIC ACID TABLET (FP) PO SCH (09:57)
[2021-08-21] MEDS: AMMONIUM LACTATE 12% LOTION 225 GM BOTTLE TP SCH ×2 (09:57→22:53)
[2021-08-21] MEDS: NICOTINE 7 MG/24 HOURS TOPICAL PATCH TD SCH (09:57)
[2021-08-21] MEDS: IBUPROFEN 400 MG TABLET (FP) PO PRN (09:59)
[2021-08-21] MEDS: ASPIRIN 81 MG CHEWABLE TABLETS PO SCH (11:07)
[2021-08-21] MEDS: BACITRACIN/POLYMYXIN B SULFATE 15 GM TUBE TP SCH ×2 (11:07→22:53)
[2021-08-21] MEDS: hydrOXYzine PAMOATE 25 MG CAPSULE (FP) PO PRN (21:53)
[2021-08-21] MEDS: THIAMINE HCL 100 MG TABLET (FP) PO SCH (21:53)
[2021-08-21] MEDS: MELATONIN 5 MG TABLETS PO SCH (21:53)
[2021-08-21] MEDS: traZODone HCL 50 MG TABLET (FP) PO PRN (21:53)
[2021-08-22] MEDS: NICOTINE 7 MG/24 HOURS TOPICAL PATCH TD SCH (09:53)
[2021-08-22] MEDS: ASPIRIN 81 MG CHEWABLE TABLETS PO SCH (09:55)
[2021-08-22] MEDS: PRENATAL VITAMINS W/ FOLIC ACID TABLET (FP) PO SCH (09:55)
[2021-08-22] MEDS: AMMONIUM LACTATE 12% LOTION 225 GM BOTTLE TP SCH ×2 (09:56→21:53)
[2021-08-22] MEDS: BACITRACIN/POLYMYXIN B SULFATE 15 GM TUBE TP SCH ×2 (09:56→21:54)
[2021-08-22] MEDS: DOCUSATE SODIUM 100 MG CAPSULE (FP) PO SCH ×2 (14:37→21:53)
[2021-08-22] MEDS: THIAMINE HCL 100 MG TABLET (FP) PO SCH (21:52)
[2021-08-22] MEDS: traZODone HCL 50 MG TABLET (FP) PO PRN (21:53)
[2021-08-22] MEDS: MELATONIN 5 MG TABLETS PO SCH (21:55)
[2021-08-22] MEDS: hydrOXYzine PAMOATE 25 MG CAPSULE (FP) PO PRN (21:56)
[2021-08-23] MEDS: DOCUSATE SODIUM 100 MG CAPSULE (FP) PO SCH ×3 (06:47→22:00)
[2021-08-23] MEDS: ASPIRIN 81 MG CHEWABLE TABLETS PO SCH (09:57)
[2021-08-23] MEDS: hydrOXYzine PAMOATE 25 MG CAPSULE (FP) PO PRN (09:57)
[2021-08-23] MEDS: PRENATAL VITAMINS W/ FOLIC ACID TABLET (FP) PO SCH (09:57)
[2021-08-23] MEDS: BACITRACIN/POLYMYXIN B SULFATE 15 GM TUBE TP SCH ×2 (09:57→22:44)
[2021-08-23] MEDS: NICOTINE 7 MG/24 HOURS TOPICAL PATCH TD SCH (09:58)
[2021-08-23] MEDS: AMMONIUM LACTATE 12% LOTION 225 GM BOTTLE TP SCH ×2 (09:59→22:00)
[2021-08-23] MEDS: METHYL SALICYLATE/MENTHOL OINT 30 GM TUBE TP SCH ×2 (15:28→22:01)
[2021-08-23] MEDS: traZODone HCL 50 MG TABLET (FP) PO PRN (22:00)
[2021-08-23] MEDS: THIAMINE HCL 100 MG TABLET (FP) PO SCH (22:00)
[2021-08-23] MEDS: MELATONIN 5 MG TABLETS PO SCH (22:00)
[2021-08-23] MEDS: hydrOXYzine PAMOATE 50 MG CAPSULE (FP) PO PRN (22:00)
[2021-08-24] MEDS: DOCUSATE SODIUM 100 MG CAPSULE (FP) PO SCH ×3 (06:42→21:39)
[2021-08-24] MEDS ORDERED: PT OWN MED DRAWER 7, Y5N ONE (10:18)
[2021-08-24] MEDS: METHYL SALICYLATE/MENTHOL OINT 30 GM TUBE TP SCH ×2 (12:08→21:39)
[2021-08-24] MEDS: NICOTINE 7 MG/24 HOURS TOPICAL PATCH TD SCH (12:09)
[2021-08-24] MEDS: AMMONIUM LACTATE 12% LOTION 225 GM BOTTLE TP SCH ×2 (12:09→21:38)
[2021-08-24] MEDS: PRENATAL VITAMINS W/ FOLIC ACID TABLET (FP) PO SCH (12:20)
[2021-08-24] MEDS: BACITRACIN/POLYMYXIN B SULFATE 15 GM TUBE TP SCH ×2 (12:20→21:39)
[2021-08-24] MEDS: ASPIRIN 81 MG CHEWABLE TABLETS PO SCH (12:20)
[2021-08-24] MEDS: THIAMINE HCL 100 MG TABLET (FP) PO SCH (21:36)
[2021-08-24] MEDS: traZODone HCL 50 MG TABLET (FP) PO PRN (21:36)
[2021-08-24] MEDS: MELATONIN 5 MG TABLETS PO SCH (21:37)
[2021-08-25] MEDS: DOCUSATE SODIUM 100 MG CAPSULE (FP) PO SCH ×3 (06:18→21:27)
[2021-08-25] MEDS: BACITRACIN/POLYMYXIN B SULFATE 15 GM TUBE TP SCH ×2 (11:58→21:28)
[2021-08-25] MEDS: PRENATAL VITAMINS W/ FOLIC ACID TABLET (FP) PO SCH (11:58)
[2021-08-25] MEDS: AMMONIUM LACTATE 12% LOTION 225 GM BOTTLE TP SCH ×2 (11:58→21:28)
[2021-08-25] MEDS: NICOTINE 7 MG/24 HOURS TOPICAL PATCH TD SCH (11:58)
[2021-08-25] MEDS: METHYL SALICYLATE/MENTHOL OINT 30 GM TUBE TP SCH ×2 (11:58→21:27)
[2021-08-25] MEDS: ASPIRIN 81 MG CHEWABLE TABLETS PO SCH (11:58)
[2021-08-25] MEDS: MELATONIN 5 MG TABLETS PO SCH (21:27)
[2021-08-25] MEDS: THIAMINE HCL 100 MG TABLET (FP) PO SCH (21:27)
[2021-08-25] MEDS: hydrOXYzine PAMOATE 50 MG CAPSULE (FP) PO PRN (21:28)
[2021-08-25] MEDS: traZODone HCL 50 MG TABLET (FP) PO PRN (21:28)
[2021-08-26] MEDS: DOCUSATE SODIUM 100 MG CAPSULE (FP) PO SCH ×3 (06:29→21:34)
[2021-08-26] MEDS: NICOTINE 7 MG/24 HOURS TOPICAL PATCH TD SCH (10:33)
[2021-08-26] MEDS: AMMONIUM LACTATE 12% LOTION 225 GM BOTTLE TP SCH ×2 (10:33→21:35)
[2021-08-26] MEDS: METHYL SALICYLATE/MENTHOL OINT 30 GM TUBE TP SCH ×2 (10:33→21:35)
[2021-08-26] MEDS: ASPIRIN 81 MG CHEWABLE TABLETS PO SCH (10:33)
[2021-08-26] MEDS: PRENATAL VITAMINS W/ FOLIC ACID TABLET (FP) PO SCH (10:34)
[2021-08-26] MEDS: BACITRACIN/POLYMYXIN B SULFATE 15 GM TUBE TP SCH ×2 (10:34→21:35)
[2021-08-26] MEDS: MELATONIN 5 MG TABLETS PO SCH (21:34)
[2021-08-26] MEDS: THIAMINE HCL 100 MG TABLET (FP) PO SCH (21:34)
[2021-08-26] MEDS: traZODone HCL 50 MG TABLET (FP) PO PRN (21:34)
[2021-08-26] MEDS: hydrOXYzine PAMOATE 50 MG CAPSULE (FP) PO PRN (21:34)
[2021-08-27] MEDS: DOCUSATE SODIUM 100 MG CAPSULE (FP) PO SCH ×3 (06:05→21:42)
[2021-08-27] MEDS: METHYL SALICYLATE/MENTHOL OINT 30 GM TUBE TP SCH ×2 (11:36→21:45)
[2021-08-27] MEDS: ASPIRIN 81 MG CHEWABLE TABLETS PO SCH (11:36)
[2021-08-27] MEDS: NICOTINE 7 MG/24 HOURS TOPICAL PATCH TD SCH (11:37)
[2021-08-27] MEDS: AMMONIUM LACTATE 12% LOTION 225 GM BOTTLE TP SCH ×2 (11:37→21:43)
[2021-08-27] MEDS: PRENATAL VITAMINS W/ FOLIC ACID TABLET (FP) PO SCH (11:37)
[2021-08-27] MEDS: BACITRACIN/POLYMYXIN B SULFATE 15 GM TUBE TP SCH ×2 (11:37→22:06)
[2021-08-27] MEDS: hydrOXYzine PAMOATE 50 MG CAPSULE (FP) PO PRN (21:41)
[2021-08-27] MEDS: traZODone HCL 50 MG TABLET (FP) PO PRN (21:41)
[2021-08-27] MEDS: THIAMINE HCL 100 MG TABLET (FP) PO SCH (21:41)
[2021-08-27] MEDS: MELATONIN 5 MG TABLETS PO SCH (21:42)
[2021-08-27] MEDS: guaiFENesin 200 MG/10 ML 10 ML UNIT-DOSE CUPS PO PRN (21:48)
[2021-08-28] MEDS: DOCUSATE SODIUM 100 MG CAPSULE (FP) PO SCH ×3 (06:43→21:44)
[2021-08-28] MEDS: ASPIRIN 81 MG CHEWABLE TABLETS PO SCH (09:49)
[2021-08-28] MEDS: PRENATAL VITAMINS W/ FOLIC ACID TABLET (FP) PO SCH (09:49)
[2021-08-28] MEDS: NICOTINE 7 MG/24 HOURS TOPICAL PATCH TD SCH (09:50)
[2021-08-28] MEDS: BACITRACIN/POLYMYXIN B SULFATE 15 GM TUBE TP SCH ×2 (09:50→22:17)
[2021-08-28] MEDS: AMMONIUM LACTATE 12% LOTION 225 GM BOTTLE TP SCH ×2 (09:50→21:44)
[2021-08-28] MEDS: METHYL SALICYLATE/MENTHOL OINT 30 GM TUBE TP SCH ×2 (09:50→21:43)
[2021-08-28] MEDS: THIAMINE HCL 100 MG TABLET (FP) PO SCH (21:44)
[2021-08-28] MEDS: MELATONIN 5 MG TABLETS PO SCH (21:44)
[2021-08-28] MEDS: traZODone HCL 50 MG TABLET (FP) PO PRN (21:44)
[2021-08-28] MEDS: guaiFENesin 200 MG/10 ML 10 ML UNIT-DOSE CUPS PO PRN (21:49)
[2021-08-29] MEDS: DOCUSATE SODIUM 100 MG CAPSULE (FP) PO SCH ×3 (06:26→21:23)
[2021-08-29 07:23] VITALS: BP 141/80; PULSE 92; TEMP 97.5
[2021-08-29] MEDS: ASPIRIN 81 MG CHEWABLE TABLETS PO SCH (11:00)
[2021-08-29] MEDS: NICOTINE 7 MG/24 HOURS TOPICAL PATCH TD SCH (11:00)
[2021-08-29] MEDS: PRENATAL VITAMINS W/ FOLIC ACID TABLET (FP) PO SCH (11:00)
[2021-08-29] MEDS: BACITRACIN/POLYMYXIN B SULFATE 15 GM TUBE TP SCH ×2 (11:00→21:56)
[2021-08-29] MEDS: AMMONIUM LACTATE 12% LOTION 225 GM BOTTLE TP SCH ×2 (11:00→21:24)
[2021-08-29] MEDS: METHYL SALICYLATE/MENTHOL OINT 30 GM TUBE TP SCH ×2 (11:00→21:22)
[2021-08-29] MEDS: guaiFENesin 200 MG/10 ML 10 ML UNIT-DOSE CUPS PO PRN (21:23)
[2021-08-29] MEDS: THIAMINE HCL 100 MG TABLET (FP) PO SCH (21:23)
[2021-08-29] MEDS: traZODone HCL 50 MG TABLET (FP) PO PRN (21:23)
[2021-08-29] MEDS: MELATONIN 5 MG TABLETS PO SCH (21:23)
[2021-08-30] MEDS: DOCUSATE SODIUM 100 MG CAPSULE (FP) PO SCH ×3 (06:30→21:28)
[2021-08-30] MEDS: METHYL SALICYLATE/MENTHOL OINT 30 GM TUBE TP SCH ×2 (10:12→21:30)
[2021-08-30] MEDS: BACITRACIN/POLYMYXIN B SULFATE 15 GM TUBE TP SCH ×2 (10:12→21:30)
[2021-08-30] MEDS: NICOTINE 7 MG/24 HOURS TOPICAL PATCH TD SCH (10:12)
[2021-08-30] MEDS: PRENATAL VITAMINS W/ FOLIC ACID TABLET (FP) PO SCH (10:12)
[2021-08-30] MEDS: AMMONIUM LACTATE 12% LOTION 225 GM BOTTLE TP SCH ×2 (10:12→21:30)
[2021-08-30] MEDS: ASPIRIN 81 MG CHEWABLE TABLETS PO SCH (10:12)
[2021-08-30] MEDS ORDERED: PT OWN MED DRAWER 7, Y5N ONE (20:06)
[2021-08-30] MEDS: hydrOXYzine PAMOATE 50 MG CAPSULE (FP) PO PRN (21:26)
[2021-08-30] MEDS: IBUPROFEN 400 MG TABLET (FP) PO PRN (21:26)
[2021-08-30] MEDS: traZODone HCL 50 MG TABLET (FP) PO PRN (21:26)
[2021-08-30] MEDS: MELATONIN 5 MG TABLETS PO SCH (21:28)
[2021-08-30] MEDS: THIAMINE HCL 100 MG TABLET (FP) PO SCH (21:28)
[2021-08-30] MEDS: guaiFENesin 200 MG/10 ML 10 ML UNIT-DOSE CUPS PO PRN (21:32)
[2021-08-31] MEDS: DOCUSATE SODIUM 100 MG CAPSULE (FP) PO SCH ×3 (06:27→21:32)
[2021-08-31] MEDS: PRENATAL VITAMINS W/ FOLIC ACID TABLET (FP) PO SCH (11:08)
[2021-08-31] MEDS: ASPIRIN 81 MG CHEWABLE TABLETS PO SCH (11:08)
[2021-08-31] MEDS: AMMONIUM LACTATE 12% LOTION 225 GM BOTTLE TP SCH ×2 (11:10→21:32)
[2021-08-31] MEDS: METHYL SALICYLATE/MENTHOL OINT 30 GM TUBE TP SCH ×2 (11:10→21:32)
[2021-08-31] MEDS: BACITRACIN/POLYMYXIN B SULFATE 15 GM TUBE TP SCH ×2 (11:11→21:34)
[2021-08-31] MEDS: NICOTINE 7 MG/24 HOURS TOPICAL PATCH TD SCH (11:11)
[2021-08-31] MEDS: MELATONIN 5 MG TABLETS PO SCH (21:32)
[2021-08-31] MEDS: traZODone HCL 50 MG TABLET (FP) PO PRN (21:32)
[2021-08-31] MEDS: THIAMINE HCL 100 MG TABLET (FP) PO SCH (21:32)
[2021-08-31] MEDS: guaiFENesin 200 MG/10 ML 10 ML UNIT-DOSE CUPS PO PRN (21:36)
[2021-09-01] MEDS: DOCUSATE SODIUM 100 MG CAPSULE (FP) PO SCH ×3 (06:07→21:53)
[2021-09-01] MEDS: METHYL SALICYLATE/MENTHOL OINT 30 GM TUBE TP SCH ×2 (10:27→21:54)
[2021-09-01] MEDS: AMMONIUM LACTATE 12% LOTION 225 GM BOTTLE TP SCH ×2 (10:27→21:53)
[2021-09-01] MEDS: ASPIRIN 81 MG CHEWABLE TABLETS PO SCH (10:27)
[2021-09-01] MEDS: NICOTINE 7 MG/24 HOURS TOPICAL PATCH TD SCH (10:28)
[2021-09-01] MEDS: PRENATAL VITAMINS W/ FOLIC ACID TABLET (FP) PO SCH (10:28)
[2021-09-01] MEDS: BACITRACIN/POLYMYXIN B SULFATE 15 GM TUBE TP SCH ×2 (10:28→21:54)
[2021-09-01] MEDS ORDERED: PT OWN MED DRAWER 7, Y5N ONE (10:34)
[2021-09-01] MEDS: MELATONIN 5 MG TABLETS PO SCH (21:53)
[2021-09-01] MEDS: THIAMINE HCL 100 MG TABLET (FP) PO SCH (21:53)
[2021-09-01] MEDS: guaiFENesin 200 MG/10 ML 10 ML UNIT-DOSE CUPS PO PRN (21:54)
[2021-09-01] MEDS: traZODone HCL 50 MG TABLET (FP) PO PRN (21:54)
[2021-09-01] MEDS: hydrOXYzine PAMOATE 50 MG CAPSULE (FP) PO PRN (21:55)
[2021-09-02] MEDS: DOCUSATE SODIUM 100 MG CAPSULE (FP) PO SCH ×3 (06:28→21:28)
[2021-09-02] MEDS: NICOTINE 7 MG/24 HOURS TOPICAL PATCH TD SCH (10:38)
[2021-09-02] MEDS: BACITRACIN/POLYMYXIN B SULFATE 15 GM TUBE TP SCH ×2 (10:38→21:30)
[2021-09-02] MEDS: AMMONIUM LACTATE 12% LOTION 225 GM BOTTLE TP SCH ×2 (10:38→21:30)
[2021-09-02] MEDS: METHYL SALICYLATE/MENTHOL OINT 30 GM TUBE TP SCH ×2 (10:38→21:31)
[2021-09-02] MEDS: PRENATAL VITAMINS W/ FOLIC ACID TABLET (FP) PO SCH (10:38)
[2021-09-02] MEDS: ASPIRIN 81 MG CHEWABLE TABLETS PO SCH (10:38)
[2021-09-02] MEDS: traZODone HCL 50 MG TABLET (FP) PO PRN (21:28)
[2021-09-02] MEDS: guaiFENesin 200 MG/10 ML 10 ML UNIT-DOSE CUPS PO PRN (21:28)
[2021-09-02] MEDS: THIAMINE HCL 100 MG TABLET (FP) PO SCH (21:28)
[2021-09-02] MEDS: MELATONIN 5 MG TABLETS PO SCH (21:28)
[2021-09-02] MEDS: hydrOXYzine PAMOATE 50 MG CAPSULE (FP) PO PRN (21:29)
[2021-09-03] MEDS: DOCUSATE SODIUM 100 MG CAPSULE (FP) PO SCH ×3 (06:14→21:46)
[2021-09-03] MEDS: ASPIRIN 81 MG CHEWABLE TABLETS PO SCH (10:52)
[2021-09-03] MEDS: METHYL SALICYLATE/MENTHOL OINT 30 GM TUBE TP SCH ×2 (10:52→21:47)
[2021-09-03] MEDS: NICOTINE 7 MG/24 HOURS TOPICAL PATCH TD SCH (10:53)
[2021-09-03] MEDS: AMMONIUM LACTATE 12% LOTION 225 GM BOTTLE TP SCH ×2 (10:53→21:47)
[2021-09-03] MEDS: BACITRACIN/POLYMYXIN B SULFATE 15 GM TUBE TP SCH ×2 (10:53→21:47)
[2021-09-03] MEDS: PRENATAL VITAMINS W/ FOLIC ACID TABLET (FP) PO SCH (10:54)
[2021-09-03] MEDS: TOLNAFTATE 1% CREAM 15 GM TUBE TP SCH ×2 (13:23→22:07)
[2021-09-03] MEDS: MELATONIN 5 MG TABLETS PO SCH (21:46)
[2021-09-03] MEDS: THIAMINE HCL 100 MG TABLET (FP) PO SCH (21:46)
[2021-09-03] MEDS: IBUPROFEN 400 MG TABLET (FP) PO PRN (21:47)
[2021-09-03] MEDS: hydrOXYzine PAMOATE 50 MG CAPSULE (FP) PO PRN (21:47)
[2021-09-03] MEDS: traZODone HCL 50 MG TABLET (FP) PO PRN (21:47)
[2021-09-03] MEDS: guaiFENesin 200 MG/10 ML 10 ML UNIT-DOSE CUPS PO PRN (21:48)
[2021-09-04] MEDS: DOCUSATE SODIUM 100 MG CAPSULE (FP) PO SCH (06:27)
[2021-09-04] MEDS: METHYL SALICYLATE/MENTHOL OINT 30 GM TUBE TP SCH (09:25)
[2021-09-04] MEDS: AMMONIUM LACTATE 12% LOTION 225 GM BOTTLE TP SCH (09:25)
[2021-09-04] MEDS: PRENATAL VITAMINS W/ FOLIC ACID TABLET (FP) PO SCH (09:25)
[2021-09-04] MEDS: ASPIRIN 81 MG CHEWABLE TABLETS PO SCH (09:25)
[2021-09-04] MEDS: TOLNAFTATE 1% CREAM 15 GM TUBE TP SCH (09:26)
[2021-09-04] MEDS: BACITRACIN/POLYMYXIN B SULFATE 15 GM TUBE TP SCH (09:26)
[2021-09-04] MEDS: NICOTINE 7 MG/24 HOURS TOPICAL PATCH TD SCH (09:26)
== END 2021-09-04 09:30 | disposition home or self-care (01) | DRG 772 ==
LOC: YASAS 14:59 → Y5N 15:00
PROVIDERS: ADMIT Allergy & Immunology; ATTEND Allergy & Immunology
PROC: HZ42ZZZ Group Counseling for Substance Abuse Treatment, Cognitive-Behavioral (ICD-10-PCS; principal; 2021-08-20)
DX: F10.20 Alcohol dependence, uncomplicated (principal); F14.20 Cocaine dependence, uncomplicated; F17.210 Nicotine dependence, cigarettes, uncomplicated; I10 Essential (primary) hypertension; I48.91 Unspecified atrial fibrillation; E78.5 Hyperlipidemia, unspecified; K64.9 Unspecified hemorrhoids; Z87.01 Personal history of pneumonia (recurrent); Z99.89 Dependence on other enabling machines and devices
CPT/HCPCS: 36415; 84132

== ENCOUNTER 2022-01-30 13:19 | Inpatient (IN) | payer OTHER ==
[2022-01-30] MEDS ORDERED: DICYCLOMINE HCL 10 MG CAPSULE PO PRN (14:28)
[2022-01-30] MEDS ORDERED: ONDANSETRON *ODT* 4 MG TABLET SL PRN (14:28)
[2022-01-30] MEDS ORDERED: NICOTINE 10 MG CARTRIDGE (INHALER) IH PRN (14:28)
[2022-01-30] MEDS ORDERED: IBUPROFEN 400 MG TABLET (FP) PO PRN (14:28)
[2022-01-30] MEDS ORDERED: MAGNESIUM HYDROX 2400MG/30ML ORAL SUSPENSION 30 ML CUP PO PRN (14:28)
[2022-01-30] MEDS ORDERED: METHOCARBAMOL 500 MG TABLET PO PRN (14:28)
[2022-01-30] MEDS ORDERED: MAGNESIUM CITRATE 300 ML BOTTLE PO PRN (14:28)
[2022-01-30] MEDS ORDERED: chlordiazePOXIDE HCL 25 MG CAPSULE PO PRN (14:28)
[2022-01-30] MEDS ORDERED: MAG HYDROX/AL HYDROX/SIMETH 30 ML UNIT-DOSE CUP PO PRN (14:28)
[2022-01-30] MEDS ORDERED: BISMUTH SUBSALICYLATE 262 MG/15 ML BTL PO PRN (14:28)
[2022-01-30] MEDS ORDERED: MENTHOL/PHENOL 1 EACH UD MM PRN (14:28)
[2022-01-30] MEDS ORDERED: ACETAMINOPHEN 325 MG TABLET (FP) PO PRN ×2 (14:28)
[2022-01-30] MEDS ORDERED: LOPERAMIDE HCL 2 MG CAPSULE PO PRN (14:28)
[2022-01-30] MEDS ORDERED: NICOTINE POLACRILEX 2 MG GUM BUC PRN (14:31)
[2022-01-30 14:47] VITALS: BMI 32.0
[2022-01-30] MEDS: chlordiazePOXIDE HCL 25 MG CAPSULE PO SCH ×2 (18:29→22:59)
[2022-01-30] MEDS: hydrOXYzine PAMOATE 25 MG CAPSULE (FP) PO SCH ×2 (18:30→22:59)
[2022-01-30] MEDS: CLOTRIMAZOLE 1% CREAM TP SCH (22:59)
[2022-01-30] MEDS: THIAMINE HCL 100 MG TABLET (FP) PO SCH (22:59)
[2022-01-30] MEDS: MELATONIN 5 MG TABLETS PO SCH (22:59)
[2022-01-31] MEDS: chlordiazePOXIDE HCL 25 MG CAPSULE PO SCH ×4 (08:03→23:06)
[2022-01-31] MEDS: hydrOXYzine PAMOATE 25 MG CAPSULE (FP) PO SCH ×5 (08:04→23:06)
[2022-01-31 09:28] LABS: HEMATOCRIT 31.9 % (35.4-49); HEMOGLOBIN 10.6 GM/dL (11.7-16.9); MCH 32.3 pg (25.7-33.7); MCHC 33.4 g/dl (32.0-35.9); MEAN CELL VOLUME 96.8 fl (80-96); MEAN PLT VOLUME 8.6 fl (7.5-11.1); PLATELET COUNT 222 10^3/uL (134-434); RBC 3.29 M/mm3 (4.00-5.60); RDW 16.7 % (11.9-15.9); WHITE BLOOD COUNT 3.8 K/mm3 (4.0-10.0)
[2022-01-31 09:47] LABS: ALBUMIN 2.7 g/dl (3.4-5.0); BLOOD UREA NITROGEN 7.3 mg/dL (7-18); CALCIUM 8.5 mg/dL (8.5-10.1)
[2022-01-31 09:51] LABS: CREATININE 0.6 mg/dL (0.55-1.3)
[2022-01-31 09:52] LABS: BILIRUBIN,TOTAL 0.2 mg/dL (0.2-1); TOT PROT 6.3 g/dl (6.4-8.2)
[2022-01-31] MEDS: CLOTRIMAZOLE 1% CREAM TP SCH ×2 (10:39→23:05)
[2022-01-31] MEDS: PRENATAL VITAMINS W/ FOLIC ACID TABLET (FP) PO SCH (10:39)
[2022-01-31] MEDS: NICOTINE 7 MG/24 HOURS TOPICAL PATCH TD SCH (10:40)
[2022-01-31] MEDS ORDERED: POTASSIUM CHLORIDE TABS 20 MEQ TABLET.ER (FP) PO ONE (17:16)
[2022-01-31] MEDS ORDERED: IBUPROFEN 400 MG TABLET (FP) PO PRN (18:25)
[2022-01-31] MEDS: THIAMINE HCL 100 MG TABLET (FP) PO SCH (23:06)
[2022-01-31] MEDS: MELATONIN 5 MG TABLETS PO SCH (23:06)
[2022-02-01] MEDS: chlordiazePOXIDE HCL 25 MG CAPSULE PO SCH ×4 (06:19→23:08)
[2022-02-01] MEDS: hydrOXYzine PAMOATE 25 MG CAPSULE (FP) PO SCH ×5 (06:19→23:07)
[2022-02-01] MEDS: PRENATAL VITAMINS W/ FOLIC ACID TABLET (FP) PO SCH (10:13)
[2022-02-01] MEDS: NICOTINE 7 MG/24 HOURS TOPICAL PATCH TD SCH (10:14)
[2022-02-01] MEDS: CLOTRIMAZOLE 1% CREAM TP SCH ×2 (10:14→23:12)
[2022-02-01] MEDS ORDERED: POTASSIUM CHLORIDE ORAL LIQUID 20 MEQ/15 ML PO ONE (13:19)
[2022-02-01] MEDS: POTASSIUM CHLORIDE ORAL LIQUID 20 MEQ/15 ML PO SCH (23:07)
[2022-02-01] MEDS: MELATONIN 5 MG TABLETS PO SCH (23:07)
[2022-02-01] MEDS: THIAMINE HCL 100 MG TABLET (FP) PO SCH (23:08)
[2022-02-02] MEDS ORDERED: chlordiazePOXIDE HCL 10 MG CAPSULE PO PRN
[2022-02-02] MEDS: chlordiazePOXIDE HCL 10 MG CAPSULE PO SCH ×4 (07:50→22:24)
[2022-02-02] MEDS: hydrOXYzine PAMOATE 25 MG CAPSULE (FP) PO SCH ×5 (07:50→22:24)
[2022-02-02] MEDS: NICOTINE 7 MG/24 HOURS TOPICAL PATCH TD SCH (10:43)
[2022-02-02] MEDS: POTASSIUM CHLORIDE ORAL LIQUID 20 MEQ/15 ML PO SCH ×2 (10:43→22:24)
[2022-02-02] MEDS: CLOTRIMAZOLE 1% CREAM TP SCH ×2 (10:43→22:24)
[2022-02-02] MEDS: PRENATAL VITAMINS W/ FOLIC ACID TABLET (FP) PO SCH (10:43)
[2022-02-02] MEDS: THIAMINE HCL 100 MG TABLET (FP) PO SCH (22:24)
[2022-02-02] MEDS: MELATONIN 5 MG TABLETS PO SCH (22:24)
[2022-02-03] MEDS: chlordiazePOXIDE HCL 10 MG CAPSULE PO SCH ×2 (08:19→17:56)
[2022-02-03] MEDS: hydrOXYzine PAMOATE 25 MG CAPSULE (FP) PO SCH ×5 (08:20→23:05)
[2022-02-03] MEDS: PRENATAL VITAMINS W/ FOLIC ACID TABLET (FP) PO SCH (10:32)
[2022-02-03] MEDS: CLOTRIMAZOLE 1% CREAM TP SCH ×2 (10:33→23:04)
[2022-02-03] MEDS: NICOTINE 7 MG/24 HOURS TOPICAL PATCH TD SCH (10:33)
[2022-02-03] MEDS: IBUPROFEN 600 MG TABLET (FP) PO PRN ×2 (10:36→17:59)
[2022-02-03] MEDS ORDERED: TRIMETHOBENZAMIDE HCL 200MG/2ML INJ IM PRN (11:18)
[2022-02-03] MEDS: MELATONIN 5 MG TABLETS PO SCH (23:04)
[2022-02-03] MEDS: THIAMINE HCL 100 MG TABLET (FP) PO SCH (23:05)
[2022-02-04] MEDS ORDERED: chlordiazePOXIDE HCL 10 MG CAPSULE PO ONE (05:00)
[2022-02-04] MEDS: hydrOXYzine PAMOATE 25 MG CAPSULE (FP) PO SCH ×2 (07:19→10:44)
[2022-02-04 09:49] VITALS: BP 104/78; PULSE 99; TEMP 97.9
[2022-02-04] MEDS: NICOTINE 7 MG/24 HOURS TOPICAL PATCH TD SCH (10:44)
[2022-02-04] MEDS: CLOTRIMAZOLE 1% CREAM TP SCH (10:44)
[2022-02-04] MEDS: PRENATAL VITAMINS W/ FOLIC ACID TABLET (FP) PO SCH (10:44)
== END 2022-02-04 11:05 | disposition home or self-care (01) | DRG 774 ==
LOC: YASAS 13:19 → Y3N 17:37
PROVIDERS: ADMIT Allergy & Immunology; ATTEND Allergy & Immunology
PROC: HZ2ZZZZ Detoxification Services for Substance Abuse Treatment (ICD-10-PCS; principal; 2022-01-30)
DX: F10.230 Alcohol dependence with withdrawal, uncomplicated (principal); F14.20 Cocaine dependence, uncomplicated; F17.210 Nicotine dependence, cigarettes, uncomplicated; D64.9 Anemia, unspecified; E46 Unspecified protein-calorie malnutrition; E87.6 Hypokalemia; K64.9 Unspecified hemorrhoids; R26.89 Other abnormalities of gait and mobility; R60.0 Localized edema; R21 Rash and other nonspecific skin eruption; Z87.81 Personal history of (healed) traumatic fracture; Z99.89 Dependence on other enabling machines and devices; Z59.02 Unsheltered homelessness
CPT/HCPCS: 36415; 80053; 85027; 86780; 87811; C9803-CS; U0003; U0005

== ENCOUNTER 2022-07-09 11:20 | Inpatient (IN) | payer OTHER ==
[2022-07-09 12:51] VITALS: BMI 31.0
[2022-07-09] MEDS ORDERED: ACETAMINOPHEN 325 MG TABLET (FP) PO PRN ×2 (14:53)
[2022-07-09] MEDS ORDERED: MAG HYDROX/AL HYDROX/SIMETH 30 ML UNIT-DOSE CUP PO PRN (14:53)
[2022-07-09] MEDS ORDERED: BISMUTH SUBSALICYLATE 524 MG/30 ML PO PRN (14:53)
[2022-07-09] MEDS ORDERED: METHOCARBAMOL 500 MG TABLET PO PRN (14:53)
[2022-07-09] MEDS ORDERED: NICOTINE 10 MG CARTRIDGE (INHALER) IH PRN (14:53)
[2022-07-09] MEDS ORDERED: NALOXONE HCL (KLOXXADO) 8 MG SPRAY NS PRN (14:53)
[2022-07-09] MEDS ORDERED: IBUPROFEN 400 MG TABLET (FP) PO PRN (14:53)
[2022-07-09] MEDS ORDERED: IBUPROFEN 600 MG TABLET (FP) PO PRN (14:53)
[2022-07-09] MEDS ORDERED: MAGNESIUM CITRATE 300 ML BOTTLE PO PRN (14:53)
[2022-07-09] MEDS ORDERED: BENZOCAINE/MENTHOL (CHLORASEPTIC ) LOZENGE MM PRN (14:53)
[2022-07-09] MEDS ORDERED: chlordiazePOXIDE HCL 25 MG CAPSULE PO PRN (14:53)
[2022-07-09] MEDS ORDERED: LOPERAMIDE HCL 2 MG CAPSULE PO PRN (14:53)
[2022-07-09] MEDS ORDERED: NICOTINE POLACRILEX 2 MG GUM BUC PRN (14:53)
[2022-07-09] MEDS ORDERED: MAGNESIUM HYDROX 2400MG/30ML ORAL SUSPENSION 30 ML CUP PO PRN (14:53)
[2022-07-09] MEDS ORDERED: ONDANSETRON *ODT* 4 MG TABLET SL PRN (14:53)
[2022-07-09] MEDS ORDERED: DICYCLOMINE HCL 10 MG CAPSULE PO PRN (14:53)
[2022-07-09] MEDS: chlordiazePOXIDE HCL 25 MG CAPSULE PO SCH ×2 (17:27→22:47)
[2022-07-09] MEDS: PRENATAL VITAMINS W/ FOLIC ACID TABLET (FP) PO SCH (17:28)
[2022-07-09] MEDS: hydrOXYzine PAMOATE 25 MG CAPSULE (FP) PO SCH ×2 (17:28→22:47)
[2022-07-09] MEDS: MELATONIN 5 MG TABLETS PO SCH (22:47)
[2022-07-09] MEDS: THIAMINE HCL 100 MG TABLET (FP) PO SCH (22:48)
[2022-07-10] MEDS: chlordiazePOXIDE HCL 25 MG CAPSULE PO SCH ×4 (06:17→23:01)
[2022-07-10] MEDS: hydrOXYzine PAMOATE 25 MG CAPSULE (FP) PO SCH ×5 (06:18→23:18)
[2022-07-10] MEDS: PRENATAL VITAMINS W/ FOLIC ACID TABLET (FP) PO SCH (10:30)
[2022-07-10 12:44] LABS: HEMATOCRIT 33.3 % (35.4-49); MCH 31.9 pg (25.7-33.7); MCHC 33.1 g/dl (32.0-35.9); MEAN CELL VOLUME 96.5 fl (80-96); MEAN PLT VOLUME 8.8 fl (7.5-11.1); PLATELET COUNT 226 10^3/uL (134-434); RBC 3.45 M/mm3 (4.00-5.60); RDW 14.8 % (11.9-15.9); WHITE BLOOD COUNT 4.4 K/mm3 (4.0-10.0)
[2022-07-10 12:52] LABS: ALBUMIN 2.7 g/dl (3.4-5.0); BLOOD UREA NITROGEN 13.4 mg/dL (7-18); CALCIUM 8.4 mg/dL (8.5-10.1)
[2022-07-10 12:55] LABS: CREATININE 0.7 mg/dL (0.55-1.3)
[2022-07-10 12:56] LABS: BILIRUBIN,TOTAL 0.7 mg/dL (0.2-1); TOT PROT 6.8 g/dl (6.4-8.2)
[2022-07-10] MEDS: THIAMINE HCL 100 MG TABLET (FP) PO SCH (23:01)
[2022-07-10] MEDS: MELATONIN 5 MG TABLETS PO SCH (23:18)
[2022-07-11] MEDS: chlordiazePOXIDE HCL 25 MG CAPSULE PO SCH ×5 (06:05→22:29)
[2022-07-11] MEDS: hydrOXYzine PAMOATE 25 MG CAPSULE (FP) PO SCH ×6 (06:05→22:28)
[2022-07-11] MEDS: PRENATAL VITAMINS W/ FOLIC ACID TABLET (FP) PO SCH (10:27)
[2022-07-11] MEDS: MELATONIN 5 MG TABLETS PO SCH (22:28)
[2022-07-11] MEDS: THIAMINE HCL 100 MG TABLET (FP) PO SCH (22:29)
[2022-07-12] MEDS ORDERED: chlordiazePOXIDE HCL 10 MG CAPSULE PO PRN
[2022-07-12] MEDS: hydrOXYzine PAMOATE 25 MG CAPSULE (FP) PO SCH ×5 (06:38→22:49)
[2022-07-12] MEDS: chlordiazePOXIDE HCL 10 MG CAPSULE PO SCH ×4 (06:38→22:49)
[2022-07-12] MEDS: PRENATAL VITAMINS W/ FOLIC ACID TABLET (FP) PO SCH (10:30)
[2022-07-12] MEDS: THIAMINE HCL 100 MG TABLET (FP) PO SCH (22:49)
[2022-07-12] MEDS: MELATONIN 5 MG TABLETS PO SCH (22:49)
[2022-07-13] MEDS: hydrOXYzine PAMOATE 25 MG CAPSULE (FP) PO SCH ×5 (07:46→22:21)
[2022-07-13] MEDS: chlordiazePOXIDE HCL 10 MG CAPSULE PO SCH ×2 (07:46→17:44)
[2022-07-13] MEDS: PRENATAL VITAMINS W/ FOLIC ACID TABLET (FP) PO SCH (10:32)
[2022-07-13] MEDS: THIAMINE HCL 100 MG TABLET (FP) PO SCH (22:21)
[2022-07-13] MEDS: MELATONIN 5 MG TABLETS PO SCH (22:22)
[2022-07-14] MEDS ORDERED: chlordiazePOXIDE HCL 10 MG CAPSULE PO ONE (05:00)
[2022-07-14] MEDS: hydrOXYzine PAMOATE 25 MG CAPSULE (FP) PO SCH ×2 (06:48→11:01)
[2022-07-14] MEDS: PRENATAL VITAMINS W/ FOLIC ACID TABLET (FP) PO SCH (11:01)
[2022-07-14 12:49] VITALS: BP 99/63; PULSE 95; RESP 17; TEMP 96.8
== END 2022-07-14 13:45 | disposition home or self-care (01) | DRG 774 ==
LOC: YASAS 11:20 → Y3N 16:15
PROVIDERS: ADMIT Allergy & Immunology; ATTEND Surgery
PROC: HZ2ZZZZ Detoxification Services for Substance Abuse Treatment (ICD-10-PCS; principal; 2022-07-09)
DX: F10.230 Alcohol dependence with withdrawal, uncomplicated (principal); F14.20 Cocaine dependence, uncomplicated; F15.10 Other stimulant abuse, uncomplicated; F17.210 Nicotine dependence, cigarettes, uncomplicated; Z87.81 Personal history of (healed) traumatic fracture; Z99.3 Dependence on wheelchair
CPT/HCPCS: 36415; 80053; 85027; 86780; 87811; C9803-CS; U0003; U0005

== ENCOUNTER 2022-07-14 13:48 | Inpatient (IN) | payer OTHER ==
[2022-07-14 13:51] VITALS: RESP 18
[2022-07-14] MEDS ORDERED: NICOTINE 10 MG CARTRIDGE (INHALER) IH PRN (14:41)
[2022-07-14] MEDS ORDERED: P-EPHED 60MG/TRIPROLIDI 2.5MG TABLET PO PRN (14:41)
[2022-07-14] MEDS ORDERED: MAGNESIUM HYDROX 2400MG/30ML ORAL SUSPENSION 30 ML CUP PO PRN (14:41)
[2022-07-14] MEDS ORDERED: LOPERAMIDE HCL 2 MG CAPSULE PO PRN (14:41)
[2022-07-14] MEDS ORDERED: MAG HYDROX/AL HYDROX/SIMETH 30 ML UNIT-DOSE CUP PO PRN (14:41)
[2022-07-14] MEDS ORDERED: IBUPROFEN 400 MG TABLET (FP) PO PRN (14:41)
[2022-07-14] MEDS ORDERED: hydrOXYzine PAMOATE 25 MG CAPSULE (FP) PO PRN (14:41)
[2022-07-14] MEDS ORDERED: MAGNESIUM CITRATE 300 ML BOTTLE PO PRN (14:41)
[2022-07-14] MEDS ORDERED: guaiFENesin 200 MG/10 ML 10 ML UNIT-DOSE CUPS PO PRN (14:41)
[2022-07-14] MEDS ORDERED: ACETAMINOPHEN 325 MG TABLET (FP) PO PRN (14:41)
[2022-07-14] MEDS ORDERED: BENZOCAINE/MENTHOL (CHLORASEPTIC ) LOZENGE MM PRN (14:41)
[2022-07-14] MEDS: MELATONIN 5 MG TABLETS PO SCH (22:01)
[2022-07-14] MEDS: THIAMINE HCL 100 MG TABLET (FP) PO SCH (22:01)
[2022-07-15] MEDS: PRENATAL VITAMINS W/ FOLIC ACID TABLET (FP) PO SCH (09:45)
[2022-07-15] MEDS: THIAMINE HCL 100 MG TABLET (FP) PO SCH (21:08)
[2022-07-15] MEDS: MELATONIN 5 MG TABLETS PO SCH (21:10)
[2022-07-16] MEDS: PRENATAL VITAMINS W/ FOLIC ACID TABLET (FP) PO SCH (09:47)
[2022-07-16] MEDS: BACITRACIN 0.9 GM PACKET TP SCH ×2 (15:21→21:19)
[2022-07-16] MEDS: SULFAMETHOXAZOLE/TRIMETHOPRIM 800MG/160MG D.S. TABLET PO SCH (21:18)
[2022-07-16] MEDS: MELATONIN 5 MG TABLETS PO SCH (21:18)
[2022-07-16] MEDS: THIAMINE HCL 100 MG TABLET (FP) PO SCH (21:18)
[2022-07-16] MEDS: IBUPROFEN 600 MG TABLET (FP) PO PRN (21:19)
[2022-07-16] MEDS ORDERED: SULFAMETHOXAZOLE/TRIMETHOPRIM 800MG/160MG D.S. TABLET PO SCH (22:00)
[2022-07-17] MEDS: BACITRACIN 0.9 GM PACKET TP SCH ×2 (10:00→21:20)
[2022-07-17] MEDS: SULFAMETHOXAZOLE/TRIMETHOPRIM 800MG/160MG D.S. TABLET PO SCH ×2 (10:00→21:20)
[2022-07-17] MEDS: PRENATAL VITAMINS W/ FOLIC ACID TABLET (FP) PO SCH (10:00)
[2022-07-17] MEDS: HYDROCHLOROTHIAZIDE 12.5 MG CAPSULE (FP) PO SCH (10:00)
[2022-07-17] MEDS: IBUPROFEN 600 MG TABLET (FP) PO PRN ×2 (10:01→21:20)
[2022-07-17] MEDS: MELATONIN 5 MG TABLETS PO SCH (21:19)
[2022-07-17] MEDS: THIAMINE HCL 100 MG TABLET (FP) PO SCH (21:19)
[2022-07-18 06:59] VITALS: TEMP 97.8
[2022-07-18] MEDS: BACITRACIN 0.9 GM PACKET TP SCH ×2 (09:54→22:51)
[2022-07-18] MEDS: IBUPROFEN 600 MG TABLET (FP) PO PRN (09:54)
[2022-07-18] MEDS: PRENATAL VITAMINS W/ FOLIC ACID TABLET (FP) PO SCH (09:54)
[2022-07-18] MEDS: SULFAMETHOXAZOLE/TRIMETHOPRIM 800MG/160MG D.S. TABLET PO SCH ×2 (09:55→22:51)
[2022-07-18] MEDS: HYDROCHLOROTHIAZIDE 12.5 MG CAPSULE (FP) PO SCH (09:55)
[2022-07-18 11:55] VITALS: BP 126/74; PULSE 86
[2022-07-18] MEDS: MELATONIN 5 MG TABLETS PO SCH (22:51)
[2022-07-18] MEDS: THIAMINE HCL 100 MG TABLET (FP) PO SCH (22:52)
== END 2022-07-18 23:00 | disposition short-term general hospital (02) | DRG 772 ==
LOC: YASAS 13:48 → Y3W 13:49
PROVIDERS: ADMIT Allergy & Immunology; ATTEND Psychiatry & Neurology Pain Medicine
PROC: HZ42ZZZ Group Counseling for Substance Abuse Treatment, Cognitive-Behavioral (ICD-10-PCS; principal; 2022-07-15)
DX: F10.20 Alcohol dependence, uncomplicated (principal); F17.210 Nicotine dependence, cigarettes, uncomplicated; L03.116 Cellulitis of left lower limb; R60.0 Localized edema; Z99.89 Dependence on other enabling machines and devices

== ENCOUNTER 2022-07-18 12:13 | Inpatient (IN) | payer OTHER ==
[2022-07-18] MEDS ORDERED: VANCOMYCIN 1 GM in D5W (PRE-DOCKED) 1,000 MG/250 ML IVPB ONE (12:43)
[2022-07-18] MEDS ORDERED: PIPERACILLIN/TAZOB 3.375 GM 3.375 GM in DEXTROSE 5%-WATER - 50 ML IVPB ONE (12:43)
[2022-07-18] MEDS ORDERED: ACETAMINOPHEN 1000 MG/100 ML BAG IVPB ONE (12:43)
[2022-07-18 15:20] LABS: BASO % 0.5 % (0-2.0); EOS % 2.8 % (0-4.5); HEMATOCRIT 32.6 % (35.4-49); HEMOGLOBIN 11.1 GM/dL (11.7-16.9); LYMPH % 30.3 % (8-40); MCH 32.9 pg (25.7-33.7); MCHC 34.2 g/dl (32.0-35.9); MEAN CELL VOLUME 96.3 fl (80-96); MEAN PLT VOLUME 8.3 fl (7.5-11.1); NEUT % 55.4 % (42.8-82.8); PLATELET COUNT 229 10^3/uL (134-434); RBC 3.38 M/mm3 (4.00-5.60); RDW 14.5 % (11.9-15.9); WHITE BLOOD COUNT 4.3 K/mm3 (4.0-10.0)
[2022-07-18] MEDS ORDERED: VANCOMYCIN/WATER FOR INJ (PEG) 1,000 MG/200 ML BAG IVPB ONE ×2 (15:22→22:51)
[2022-07-18 15:44] LABS: BLOOD UREA NITROGEN 8.8 mg/dL (7-18)
[2022-07-18 15:48] LABS: BILIRUBIN,TOTAL 0.2 mg/dL (0.2-1); CREATININE 0.6 mg/dL (0.55-1.3); TOT PROT 7.7 g/dl (6.4-8.2)
[2022-07-18 15:51] LABS: N-TERMINAL BNP 5.8 pg/ml (5-125)
[2022-07-18 15:53] LABS: ALBUMIN 3.2 g/dl (3.4-5.0)
[2022-07-18] MEDS ORDERED: ACETAMINOPHEN INJECTION 100 ML IVPB ONE (16:13)
[2022-07-18] MEDS ORDERED: PIPERACILLIN/TAZOB 3.375 GM 3.375 GM/50 ML BAG IVPB ONE ×2 (16:13→21:19)
[2022-07-18 16:35] LABS: ERYTHROCYTE SEDIMENTATION RATE 71 mm/hr (0-20)
[2022-07-18] MEDS ORDERED: morphine CARPU-JECT 2 MG/1 ML DISP.SYRIN IVPUSH PRN (18:21)
[2022-07-18] MEDS ORDERED: KETOROLAC TROMETHAMINE 15 MG/ML VIAL IVPUSH PRN (18:21)
[2022-07-18] MEDS ORDERED: ACETAMINOPHEN 325 MG TABLET (FP) PO PRN (18:21)
[2022-07-18] MEDS: PIPERACILLIN/TAZOB 3.375 GM 3.375 GM in DEXTROSE 5%-WATER - 50 ML IVPB SCH (21:34)
[2022-07-18] MEDS: VANCOMYCIN 1 GM/200 ML PREMIX BAG IVPB SCH (22:57)
[2022-07-19 02:50] VITALS: BMI 33.6
[2022-07-19] MEDS: PIPERACILLIN/TAZOB 3.375 GM 3.375 GM in DEXTROSE 5%-WATER - 50 ML IVPB SCH ×4 (02:50→16:46)
[2022-07-19] MEDS: ENOXAPARIN NA (PORCINE) 40 MG/0.4 ML DISP.SYRIN SQ SCH (09:46)
[2022-07-19] MEDS: VANCOMYCIN 1 GM/200 ML PREMIX BAG IVPB SCH ×2 (09:54→16:47)
[2022-07-19 09:59] LABS: HEMATOCRIT 34.6 % (35.4-49); HEMOGLOBIN 11.9 GM/dL (11.7-16.9); MCH 32.8 pg (25.7-33.7); MCHC 34.3 g/dl (32.0-35.9); MEAN CELL VOLUME 95.7 fl (80-96); MEAN PLT VOLUME 8.5 fl (7.5-11.1); PLATELET COUNT 232 10^3/uL (134-434); RBC 3.62 M/mm3 (4.00-5.60); RDW 14.5 % (11.9-15.9); WHITE BLOOD COUNT 4.6 K/mm3 (4.0-10.0)
[2022-07-19 10:18] LABS: CALCIUM 8.8 mg/dL (8.5-10.1)
[2022-07-19 10:19] LABS: BLOOD UREA NITROGEN 9.6 mg/dL (7-18)
[2022-07-19 10:22] LABS: CREATININE 0.8 mg/dL (0.55-1.3)
[2022-07-19] MEDS: CEFAZOLIN 1 GM in DEXTROSE 5%-WATER - 50 ML IVPB SCH (17:39)
[2022-07-20] MEDS: CEFAZOLIN 1 GM in DEXTROSE 5%-WATER - 50 ML IVPB SCH ×3 (02:47→17:26)
[2022-07-20 10:13] LABS: BASO % 0.4 % (0-2.0); EOS % 2.7 % (0-4.5); HEMATOCRIT 34.7 % (35.4-49); HEMOGLOBIN 11.5 GM/dL (11.7-16.9); LYMPH % 25.4 % (8-40); MCHC 33.2 g/dl (32.0-35.9); MEAN CELL VOLUME 96.4 fl (80-96); MEAN PLT VOLUME 8.1 fl (7.5-11.1); MONO % 11.2 % (3.8-10.2); NEUT % 60.3 % (42.8-82.8); PLATELET COUNT 269 10^3/uL (134-434); RDW 14.4 % (11.9-15.9); WHITE BLOOD COUNT 4.4 K/mm3 (4.0-10.0)
[2022-07-20] MEDS: ENOXAPARIN NA (PORCINE) 40 MG/0.4 ML DISP.SYRIN SQ SCH (10:29)
[2022-07-20 10:41] LABS: CALCIUM 8.9 mg/dL (8.5-10.1)
[2022-07-20 10:42] LABS: ALBUMIN 3.3 g/dl (3.4-5.0); MAGNESIUM 1.8 mg/dL (1.8-2.4)
[2022-07-20 10:45] LABS: CREATININE 0.7 mg/dL (0.55-1.3)
[2022-07-20 10:47] LABS: BILIRUBIN,TOTAL 0.4 mg/dL (0.2-1); TOT PROT 7.7 g/dl (6.4-8.2)
[2022-07-21] MEDS: CEFAZOLIN 1 GM in DEXTROSE 5%-WATER - 50 ML IVPB SCH (01:24)
[2022-07-21 09:58] LABS: BASO % 0.4 % (0-2.0); EOS % 3.5 % (0-4.5); HEMATOCRIT 35.1 % (35.4-49); HEMOGLOBIN 11.9 GM/dL (11.7-16.9); LYMPH % 35.8 % (8-40); MCH 32.6 pg (25.7-33.7); MCHC 33.8 g/dl (32.0-35.9); MEAN CELL VOLUME 96.5 fl (80-96); MEAN PLT VOLUME 8.3 fl (7.5-11.1); MONO % 10.6 % (3.8-10.2); NEUT % 49.7 % (42.8-82.8); PLATELET COUNT 250 10^3/uL (134-434); RBC 3.64 M/mm3 (4.00-5.60); RDW 14.3 % (11.9-15.9); WHITE BLOOD COUNT 4.3 K/mm3 (4.0-10.0)
[2022-07-21 10:04] LABS: ALBUMIN 3.2 g/dl (3.4-5.0); BLOOD UREA NITROGEN 13.4 mg/dL (7-18); CALCIUM 8.9 mg/dL (8.5-10.1); MAGNESIUM 1.7 mg/dL (1.8-2.4)
[2022-07-21 10:07] LABS: CREATININE 0.7 mg/dL (0.55-1.3)
[2022-07-21 10:08] LABS: BILIRUBIN,TOTAL 0.2 mg/dL (0.2-1)
[2022-07-21 10:09] LABS: TOT PROT 7.8 g/dl (6.4-8.2)
[2022-07-21] MEDS: CEPHALEXIN MONOHYDRATE 500 MG CAPSULE (UD) PO SCH ×2 (11:57→17:03)
[2022-07-21] MEDS: ENOXAPARIN NA (PORCINE) 40 MG/0.4 ML DISP.SYRIN SQ SCH (11:57)
[2022-07-22] MEDS: CEPHALEXIN MONOHYDRATE 500 MG CAPSULE (UD) PO SCH ×3 (00:48→11:50)
[2022-07-22 09:00] LABS: BASO % 0.3 % (0-2.0); EOS % 2.4 % (0-4.5); HEMATOCRIT 36.7 % (35.4-49); HEMOGLOBIN 12.2 GM/dL (11.7-16.9); MCH 31.9 pg (25.7-33.7); MCHC 33.1 g/dl (32.0-35.9); MEAN CELL VOLUME 96.2 fl (80-96); MEAN PLT VOLUME 8.3 fl (7.5-11.1); MONO % 11.8 % (3.8-10.2); NEUT % 61.5 % (42.8-82.8); PLATELET COUNT 267 10^3/uL (134-434); RBC 3.81 M/mm3 (4.00-5.60); RDW 13.9 % (11.9-15.9); WHITE BLOOD COUNT 5.1 K/mm3 (4.0-10.0)
[2022-07-22 09:02] VITALS: BP 143/92; PULSE 101; RESP 20; TEMP 98.3
[2022-07-22] MEDS: ENOXAPARIN NA (PORCINE) 40 MG/0.4 ML DISP.SYRIN SQ SCH (09:10)
[2022-07-22 09:27] LABS: BLOOD UREA NITROGEN 13.6 mg/dL (7-18); CALCIUM 9.3 mg/dL (8.5-10.1); MAGNESIUM 1.9 mg/dL (1.8-2.4)
[2022-07-22 09:28] LABS: ALBUMIN 3.5 g/dl (3.4-5.0)
[2022-07-22 09:31] LABS: CREATININE 0.6 mg/dL (0.55-1.3)
[2022-07-22 09:32] LABS: BILIRUBIN,TOTAL 0.3 mg/dL (0.2-1); TOT PROT 8.3 g/dl (6.4-8.2)
[2022-07-22] MEDS ORDERED: IBUPROFEN 400 MG TABLET (FP) PO PRN ×2 (12:02→12:40)
== END 2022-07-22 15:07 | disposition other institution (70) | DRG 383 ==
LOC: JER 12:13 → JERBED 16:39 → J7W 07-19 02:04
PROVIDERS: ADMIT Internal Medicine; ATTEND Allergy & Immunology
DX: L03.116 Cellulitis of left lower limb (principal); I87.2 Venous insufficiency (chronic) (peripheral); F14.20 Cocaine dependence, uncomplicated; E66.9 Obesity, unspecified; Z68.33 Body mass index [BMI] 33.0-33.9, adult; Z59.00 Homelessness unspecified; F17.210 Nicotine dependence, cigarettes, uncomplicated; F10.20 Alcohol dependence, uncomplicated; F19.20 Other psychoactive substance dependence, uncomplicated
CPT/HCPCS: 36415; 71045-TC-FY; 73590-TC-LT-FY; 73590-TC-RT-FY; 73610-TC-LT-FY; 73610-TC-RT-FY; 73630-TC-LT; 73630-TC-RT-FY; 80048; 80053; 80061; 83036; 83735; 83880; 85025; 85027; 85651; 86140; 87040; 93005; 93010; 93970-TC; 97116-GP; 97161-GP; 99285-25; C9803-CS; U0003; U0005

== ENCOUNTER 2022-07-22 14:46 | Inpatient (IN) | payer OTHER ==
[2022-07-22 16:51] VITALS: BMI 33.2
[2022-07-22] MEDS ORDERED: NALOXONE HCL (KLOXXADO) 8 MG SPRAY NS PRN (18:40)
[2022-07-22] MEDS ORDERED: ACETAMINOPHEN 325 MG TABLET (FP) PO PRN ×2 (18:40)
[2022-07-22] MEDS ORDERED: BISMUTH SUBSALICYLATE 524 MG/30 ML PO PRN (18:40)
[2022-07-22] MEDS ORDERED: MAGNESIUM HYDROX 2400MG/30ML ORAL SUSPENSION 30 ML CUP PO PRN (18:40)
[2022-07-22] MEDS ORDERED: MAG HYDROX/AL HYDROX/SIMETH 30 ML UNIT-DOSE CUP PO PRN (18:40)
[2022-07-22] MEDS ORDERED: BENZOCAINE/MENTHOL (CHLORASEPTIC ) LOZENGE MM PRN (18:40)
[2022-07-22] MEDS ORDERED: LOPERAMIDE HCL 2 MG CAPSULE PO PRN (18:40)
[2022-07-22] MEDS ORDERED: diazePAM 5 MG TABLET PO PRN (18:40)
[2022-07-22] MEDS ORDERED: NICOTINE POLACRILEX 2 MG GUM BUC PRN (18:40)
[2022-07-22] MEDS ORDERED: MAGNESIUM CITRATE 300 ML BOTTLE PO PRN (18:40)
[2022-07-22] MEDS ORDERED: IBUPROFEN 400 MG TABLET (FP) PO PRN (18:40)
[2022-07-22] MEDS ORDERED: ONDANSETRON *ODT* 4 MG TABLET SL PRN (18:40)
[2022-07-22] MEDS ORDERED: NICOTINE 10 MG CARTRIDGE (INHALER) IH PRN (18:40)
[2022-07-22] MEDS ORDERED: METHOCARBAMOL 500 MG TABLET PO PRN (18:40)
[2022-07-22] MEDS ORDERED: DICYCLOMINE HCL 10 MG CAPSULE PO PRN (18:40)
[2022-07-22] MEDS: PRENATAL VITAMINS W/ FOLIC ACID TABLET (FP) PO SCH (19:43)
[2022-07-22] MEDS: IBUPROFEN 600 MG TABLET (FP) PO PRN (19:43)
[2022-07-22] MEDS ORDERED: THIAMINE HCL 100 MG TABLET (FP) PO SCH (22:00)
[2022-07-22] MEDS ORDERED: MELATONIN 5 MG TABLETS PO SCH (22:00)
[2022-07-22] MEDS: diazePAM 5 MG TABLET PO SCH (22:47)
[2022-07-22] MEDS: hydrOXYzine PAMOATE 25 MG CAPSULE (FP) PO SCH (22:47)
[2022-07-23] MEDS: hydrOXYzine PAMOATE 25 MG CAPSULE (FP) PO SCH ×4 (05:55→18:00)
[2022-07-23] MEDS: diazePAM 5 MG TABLET PO SCH (05:55)
[2022-07-23] MEDS: PRENATAL VITAMINS W/ FOLIC ACID TABLET (FP) PO SCH (10:35)
[2022-07-23] MEDS: CEPHALEXIN MONOHYDRATE 500 MG CAPSULE (UD) PO SCH ×2 (11:13→17:48)
[2022-07-23] MEDS: IBUPROFEN 600 MG TABLET (FP) PO PRN ×2 (11:13→17:49)
[2022-07-23 16:57] VITALS: BP 133/76; PULSE 99; RESP 19; TEMP 97.5
[2022-07-24] MEDS ORDERED: diazePAM 5 MG TABLET PO SCH (06:00)
[2022-07-25] MEDS ORDERED: diazePAM 5 MG TABLET PO SCH (06:00)
[2022-07-26] MEDS ORDERED: diazePAM 5 MG TABLET PO ONE (06:00)
== END 2022-07-23 18:35 | disposition other institution (70) | DRG 774 ==
LOC: YASAS 14:46 → Y3N 18:43
PROVIDERS: ADMIT Allergy & Immunology; ATTEND Surgery
PROC: HZ2ZZZZ Detoxification Services for Substance Abuse Treatment (ICD-10-PCS; principal; 2022-07-22)
DX: F10.230 Alcohol dependence with withdrawal, uncomplicated (principal); F14.20 Cocaine dependence, uncomplicated; F13.20 Sedative, hypnotic or anxiolytic dependence, uncomplicated; F15.20 Other stimulant dependence, uncomplicated; F17.210 Nicotine dependence, cigarettes, uncomplicated; F41.9 Anxiety disorder, unspecified; L03.115 Cellulitis of right lower limb; L03.116 Cellulitis of left lower limb; Z28.311 Partially vaccinated for COVID-19
CPT/HCPCS: 36415; 86780; C9803-CS; U0003; U0005

== ENCOUNTER 2022-07-23 18:54 | Inpatient (IN) | payer OTHER ==
[2022-07-23] MEDS ORDERED: BENZOCAINE/MENTHOL (CHLORASEPTIC ) LOZENGE MM PRN (21:02)
[2022-07-23] MEDS ORDERED: guaiFENesin 200 MG/10 ML 10 ML UNIT-DOSE CUPS PO PRN (21:02)
[2022-07-23] MEDS ORDERED: P-EPHED 60MG/TRIPROLIDI 2.5MG TABLET PO PRN (21:02)
[2022-07-23] MEDS ORDERED: MAGNESIUM HYDROX 2400MG/30ML ORAL SUSPENSION 30 ML CUP PO PRN (21:02)
[2022-07-23] MEDS ORDERED: ACETAMINOPHEN 325 MG TABLET (FP) PO PRN (21:02)
[2022-07-23] MEDS ORDERED: MAG HYDROX/AL HYDROX/SIMETH 30 ML UNIT-DOSE CUP PO PRN (21:02)
[2022-07-23] MEDS ORDERED: LOPERAMIDE HCL 2 MG CAPSULE PO PRN (21:02)
[2022-07-23] MEDS ORDERED: MAGNESIUM CITRATE 300 ML BOTTLE PO PRN (21:02)
[2022-07-23] MEDS: IBUPROFEN 400 MG TABLET (FP) PO PRN (21:40)
[2022-07-23] MEDS: THIAMINE HCL 100 MG TABLET (FP) PO SCH (21:41)
[2022-07-23] MEDS: CEPHALEXIN MONOHYDRATE 500 MG CAPSULE (UD) PO SCH (23:08)
[2022-07-24] MEDS: CEPHALEXIN MONOHYDRATE 500 MG CAPSULE (UD) PO SCH ×4 (06:39→23:19)
[2022-07-24] MEDS: PRENATAL VITAMINS W/ FOLIC ACID TABLET (FP) PO SCH (09:59)
[2022-07-24] MEDS: IBUPROFEN 400 MG TABLET (FP) PO PRN ×2 (09:59→21:50)
[2022-07-24] MEDS: THIAMINE HCL 100 MG TABLET (FP) PO SCH (21:50)
[2022-07-25] MEDS: CEPHALEXIN MONOHYDRATE 500 MG CAPSULE (UD) PO SCH ×3 (06:23→18:25)
[2022-07-25] MEDS: IBUPROFEN 400 MG TABLET (FP) PO PRN (06:23)
[2022-07-25] MEDS: PRENATAL VITAMINS W/ FOLIC ACID TABLET (FP) PO SCH (10:12)
[2022-07-25] MEDS: BACITRACIN 15 GM TUBE TOPICAL OINTMENT TP SCH ×2 (12:00→21:09)
[2022-07-25] MEDS: METHYL SALICYLATE/MENTHOL OINT 30 GM TUBE TP SCH ×2 (12:00→21:33)
[2022-07-25] MEDS: LIDOCAINE 5% TOPICAL PATCH TP SCH (12:00)
[2022-07-25] MEDS: THIAMINE HCL 100 MG TABLET (FP) PO SCH (21:07)
[2022-07-25] MEDS: IBUPROFEN 600 MG TABLET (FP) PO PRN (21:07)
[2022-07-25] MEDS: MELATONIN 5 MG TABLETS PO PRN (21:07)
[2022-07-25] MEDS: hydrOXYzine PAMOATE 25 MG CAPSULE (FP) PO PRN (21:08)
[2022-07-25] MEDS: LIDOCAINE PATCH REMOVAL MC SCH (21:08)
[2022-07-26] MEDS: CEPHALEXIN MONOHYDRATE 500 MG CAPSULE (UD) PO SCH ×4 (00:30→18:05)
[2022-07-26] MEDS: IBUPROFEN 600 MG TABLET (FP) PO PRN ×3 (06:18→21:54)
[2022-07-26] MEDS: LIDOCAINE 5% TOPICAL PATCH TP SCH (09:55)
[2022-07-26] MEDS: PRENATAL VITAMINS W/ FOLIC ACID TABLET (FP) PO SCH (09:55)
[2022-07-26] MEDS: BACITRACIN 15 GM TUBE TOPICAL OINTMENT TP SCH ×2 (09:56→21:53)
[2022-07-26] MEDS: METHYL SALICYLATE/MENTHOL OINT 30 GM TUBE TP SCH ×2 (09:57→21:53)
[2022-07-26] MEDS: LIDOCAINE PATCH REMOVAL MC SCH (21:52)
[2022-07-26] MEDS: MELATONIN 5 MG TABLETS PO PRN (21:54)
[2022-07-26] MEDS: THIAMINE HCL 100 MG TABLET (FP) PO SCH (21:54)
[2022-07-26] MEDS: hydrOXYzine PAMOATE 25 MG CAPSULE (FP) PO PRN (21:55)
[2022-07-27] MEDS: IBUPROFEN 600 MG TABLET (FP) PO PRN ×2 (06:17→21:51)
[2022-07-27] MEDS: CEPHALEXIN MONOHYDRATE 500 MG CAPSULE (UD) PO SCH ×3 (06:17→11:51)
[2022-07-27] MEDS: METHYL SALICYLATE/MENTHOL OINT 30 GM TUBE TP SCH ×2 (09:54→21:50)
[2022-07-27] MEDS: BACITRACIN 15 GM TUBE TOPICAL OINTMENT TP SCH ×2 (09:55→21:52)
[2022-07-27] MEDS: LIDOCAINE 5% TOPICAL PATCH TP SCH (09:55)
[2022-07-27] MEDS: PRENATAL VITAMINS W/ FOLIC ACID TABLET (FP) PO SCH (09:55)
[2022-07-27] MEDS: LIDOCAINE PATCH REMOVAL MC SCH (21:50)
[2022-07-27] MEDS: THIAMINE HCL 100 MG TABLET (FP) PO SCH (21:50)
[2022-07-27] MEDS: hydrOXYzine PAMOATE 25 MG CAPSULE (FP) PO PRN (21:51)
[2022-07-28] MEDS: IBUPROFEN 600 MG TABLET (FP) PO PRN ×2 (07:05→21:50)
[2022-07-28] MEDS: BACITRACIN 15 GM TUBE TOPICAL OINTMENT TP SCH ×2 (09:50→22:36)
[2022-07-28] MEDS: METHYL SALICYLATE/MENTHOL OINT 30 GM TUBE TP SCH ×2 (09:50→22:36)
[2022-07-28] MEDS: LIDOCAINE 5% TOPICAL PATCH TP SCH (09:51)
[2022-07-28] MEDS: PRENATAL VITAMINS W/ FOLIC ACID TABLET (FP) PO SCH (09:51)
[2022-07-28] MEDS: THIAMINE HCL 100 MG TABLET (FP) PO SCH (21:48)
[2022-07-28] MEDS: MELATONIN 5 MG TABLETS PO PRN (21:48)
[2022-07-28] MEDS: hydrOXYzine PAMOATE 25 MG CAPSULE (FP) PO PRN (21:49)
[2022-07-28] MEDS: LIDOCAINE PATCH REMOVAL MC SCH (22:36)
[2022-07-29] MEDS: IBUPROFEN 600 MG TABLET (FP) PO PRN ×2 (06:35→21:42)
[2022-07-29] MEDS: LIDOCAINE 5% TOPICAL PATCH TP SCH (10:00)
[2022-07-29] MEDS: BACITRACIN 15 GM TUBE TOPICAL OINTMENT TP SCH ×2 (10:01→21:40)
[2022-07-29] MEDS: PRENATAL VITAMINS W/ FOLIC ACID TABLET (FP) PO SCH (10:01)
[2022-07-29] MEDS: METHYL SALICYLATE/MENTHOL OINT 30 GM TUBE TP SCH ×2 (10:02→21:40)
[2022-07-29] MEDS: THIAMINE HCL 100 MG TABLET (FP) PO SCH (21:39)
[2022-07-29] MEDS: hydrOXYzine PAMOATE 25 MG CAPSULE (FP) PO PRN (21:40)
[2022-07-29] MEDS: LIDOCAINE PATCH REMOVAL MC SCH (21:41)
[2022-07-30] MEDS: IBUPROFEN 600 MG TABLET (FP) PO PRN ×2 (06:18→21:38)
[2022-07-30] MEDS: PRENATAL VITAMINS W/ FOLIC ACID TABLET (FP) PO SCH (10:20)
[2022-07-30] MEDS: LIDOCAINE 5% TOPICAL PATCH TP SCH (10:21)
[2022-07-30] MEDS: METHYL SALICYLATE/MENTHOL OINT 30 GM TUBE TP SCH ×2 (10:21→21:40)
[2022-07-30] MEDS: BACITRACIN 15 GM TUBE TOPICAL OINTMENT TP SCH ×2 (10:22→21:40)
[2022-07-30] MEDS: hydrOXYzine PAMOATE 25 MG CAPSULE (FP) PO PRN (21:35)
[2022-07-30] MEDS: LIDOCAINE PATCH REMOVAL MC SCH (21:35)
[2022-07-30] MEDS: MELATONIN 5 MG TABLETS PO PRN (21:35)
[2022-07-30] MEDS: THIAMINE HCL 100 MG TABLET (FP) PO SCH (21:35)
[2022-07-31] MEDS: IBUPROFEN 600 MG TABLET (FP) PO PRN ×2 (07:02→22:06)
[2022-07-31] MEDS: LIDOCAINE 5% TOPICAL PATCH TP SCH (10:12)
[2022-07-31] MEDS: BACITRACIN 15 GM TUBE TOPICAL OINTMENT TP SCH ×2 (10:13→22:05)
[2022-07-31] MEDS: METHYL SALICYLATE/MENTHOL OINT 30 GM TUBE TP SCH ×2 (10:13→22:05)
[2022-07-31] MEDS: PRENATAL VITAMINS W/ FOLIC ACID TABLET (FP) PO SCH (10:14)
[2022-07-31] MEDS: MELATONIN 5 MG TABLETS PO PRN (22:03)
[2022-07-31] MEDS: THIAMINE HCL 100 MG TABLET (FP) PO SCH (22:03)
[2022-07-31] MEDS: LIDOCAINE PATCH REMOVAL MC SCH (22:04)
[2022-08-01] MEDS: IBUPROFEN 600 MG TABLET (FP) PO PRN ×2 (06:48→21:54)
[2022-08-01] MEDS: METHYL SALICYLATE/MENTHOL OINT 30 GM TUBE TP SCH ×2 (10:05→21:53)
[2022-08-01] MEDS: BACITRACIN 15 GM TUBE TOPICAL OINTMENT TP SCH ×2 (10:05→21:54)
[2022-08-01] MEDS: LIDOCAINE 5% TOPICAL PATCH TP SCH (10:05)
[2022-08-01] MEDS: PRENATAL VITAMINS W/ FOLIC ACID TABLET (FP) PO SCH (10:06)
[2022-08-01] MEDS: MELATONIN 5 MG TABLETS PO PRN (21:53)
[2022-08-01] MEDS: LIDOCAINE PATCH REMOVAL MC SCH (21:53)
[2022-08-01] MEDS: THIAMINE HCL 100 MG TABLET (FP) PO SCH (21:53)
[2022-08-02] MEDS: IBUPROFEN 600 MG TABLET (FP) PO PRN (07:07)
[2022-08-02 07:47] VITALS: BP 125/83; PULSE 86; RESP 18; TEMP 97.7
[2022-08-02] MEDS: BACITRACIN 15 GM TUBE TOPICAL OINTMENT TP SCH (09:26)
[2022-08-02] MEDS: METHYL SALICYLATE/MENTHOL OINT 30 GM TUBE TP SCH (09:26)
[2022-08-02] MEDS: PRENATAL VITAMINS W/ FOLIC ACID TABLET (FP) PO SCH (09:26)
[2022-08-02] MEDS: LIDOCAINE 5% TOPICAL PATCH TP SCH (09:26)
== END 2022-08-02 10:25 | disposition home or self-care (01) | DRG 772 ==
LOC: YASAS 18:54 → Y3E 18:57
PROVIDERS: ADMIT Allergy & Immunology; ATTEND Psychiatry & Neurology Pain Medicine
PROC: HZ42ZZZ Group Counseling for Substance Abuse Treatment, Cognitive-Behavioral (ICD-10-PCS; principal; 2022-07-23)
DX: F10.20 Alcohol dependence, uncomplicated (principal); F14.20 Cocaine dependence, uncomplicated; F17.210 Nicotine dependence, cigarettes, uncomplicated; L03.116 Cellulitis of left lower limb; R60.0 Localized edema; Z99.89 Dependence on other enabling machines and devices

== ENCOUNTER 2022-08-23 10:34 | Inpatient (IN) | payer OTHER ==
[2022-08-23 11:24] VITALS: BMI 29.5
[2022-08-24] MEDS ORDERED: DICYCLOMINE HCL 10 MG CAPSULE PO PRN (01:22)
[2022-08-24] MEDS ORDERED: NALOXONE HCL (KLOXXADO) 8 MG SPRAY NS PRN (01:22)
[2022-08-24] MEDS ORDERED: NICOTINE POLACRILEX 2 MG GUM BUC PRN (01:22)
[2022-08-24] MEDS ORDERED: LOPERAMIDE HCL 2 MG CAPSULE PO PRN (01:22)
[2022-08-24] MEDS ORDERED: ACETAMINOPHEN 325 MG TABLET (FP) PO PRN ×2 (01:22)
[2022-08-24] MEDS ORDERED: ONDANSETRON *ODT* 4 MG TABLET SL PRN (01:22)
[2022-08-24] MEDS ORDERED: MAGNESIUM CITRATE 300 ML BOTTLE PO PRN (01:22)
[2022-08-24] MEDS ORDERED: METHOCARBAMOL 500 MG TABLET PO PRN (01:22)
[2022-08-24] MEDS ORDERED: MAGNESIUM HYDROX 2400MG/30ML ORAL SUSPENSION 30 ML CUP PO PRN (01:22)
[2022-08-24] MEDS ORDERED: BENZOCAINE/MENTHOL (CHLORASEPTIC ) LOZENGE MM PRN (01:22)
[2022-08-24] MEDS ORDERED: BISMUTH SUBSALICYLATE 524 MG/30 ML PO PRN (01:22)
[2022-08-24] MEDS ORDERED: MAG HYDROX/AL HYDROX/SIMETH 30 ML UNIT-DOSE CUP PO PRN (01:22)
[2022-08-24] MEDS: CLINDAMYCIN HCL 150 MG CAPSULE (FP) PO SCH ×3 (06:23→22:36)
[2022-08-24] MEDS: NICOTINE 14 MG/24 HOURS TOPICAL PATCH TD SCH (10:53)
[2022-08-24] MEDS: PRENATAL VITAMINS W/ FOLIC ACID TABLET (FP) PO SCH (10:53)
[2022-08-24] MEDS: IBUPROFEN 600 MG TABLET (FP) PO PRN ×2 (10:57→22:38)
[2022-08-24] MEDS ORDERED: LORazepam 1 MG TABLET PO PRN (14:29)
[2022-08-24] MEDS ORDERED: LORazepam 2 MG TABLET PO SCH (17:00)
[2022-08-24] MEDS ORDERED: LORazepam 1 MG TABLET PO SCH (17:20)
[2022-08-24] MEDS: LORazepam 1 MG TABLET PO SCH ×2 (18:10→22:36)
[2022-08-24] MEDS: MELATONIN 5 MG TABLETS PO SCH (22:37)
[2022-08-24] MEDS: THIAMINE HCL 100 MG TABLET (FP) PO SCH (22:37)
[2022-08-25] MEDS: CLINDAMYCIN HCL 150 MG CAPSULE (FP) PO SCH ×3 (06:05→22:31)
[2022-08-25] MEDS: LORazepam 1 MG TABLET PO SCH ×4 (06:05→22:31)
[2022-08-25] MEDS: IBUPROFEN 600 MG TABLET (FP) PO PRN ×2 (06:07→18:14)
[2022-08-25 08:30] LABS: BLOOD UREA NITROGEN 4.9 mg/dL (7-18); CALCIUM 8.3 mg/dL (8.5-10.1); HEMATOCRIT 34.1 % (35.4-49); HEMOGLOBIN 11.3 GM/dL (11.7-16.9); MCH 31.3 pg (25.7-33.7); MCHC 33.2 g/dl (32.0-35.9); MEAN CELL VOLUME 94.1 fl (80-96); MEAN PLT VOLUME 9.8 fl (7.5-11.1); PLATELET COUNT 176 10^3/uL (134-434); RBC 3.62 M/mm3 (4.00-5.60); RDW 14.3 % (11.9-15.9); WHITE BLOOD COUNT 5.2 K/mm3 (4.0-10.0)
[2022-08-25 08:31] LABS: ALBUMIN 3.1 g/dl (3.4-5.0)
[2022-08-25 08:33] LABS: CREATININE 0.7 mg/dL (0.55-1.3)
[2022-08-25 08:34] LABS: BILIRUBIN,TOTAL 0.6 mg/dL (0.2-1); TOT PROT 7.3 g/dl (6.4-8.2)
[2022-08-25] MEDS: PRENATAL VITAMINS W/ FOLIC ACID TABLET (FP) PO SCH (10:49)
[2022-08-25] MEDS: NICOTINE 14 MG/24 HOURS TOPICAL PATCH TD SCH (10:52)
[2022-08-25] MEDS: IBUPROFEN 400 MG TABLET (FP) PO PRN (10:52)
[2022-08-25] MEDS ORDERED: POTASSIUM CHLORIDE TABS 20 MEQ TABLET.ER (FP) PO ONE ×2 (12:05→18:00)
[2022-08-25] MEDS: MELATONIN 5 MG TABLETS PO SCH (22:31)
[2022-08-25] MEDS: THIAMINE HCL 100 MG TABLET (FP) PO SCH (22:31)
[2022-08-26] MEDS: IBUPROFEN 600 MG TABLET (FP) PO PRN ×4 (00:05→18:00)
[2022-08-26] MEDS: LORazepam 0.5 MG TABLET PO SCH ×4 (05:27→22:17)
[2022-08-26] MEDS: CLINDAMYCIN HCL 150 MG CAPSULE (FP) PO SCH ×3 (05:27→22:17)
[2022-08-26 09:52] VITALS: RESP 18
[2022-08-26] MEDS: PRENATAL VITAMINS W/ FOLIC ACID TABLET (FP) PO SCH (10:27)
[2022-08-26] MEDS: NICOTINE 14 MG/24 HOURS TOPICAL PATCH TD SCH (10:28)
[2022-08-26] MEDS: IBUPROFEN 400 MG TABLET (FP) PO PRN (10:30)
[2022-08-26] MEDS: THIAMINE HCL 100 MG TABLET (FP) PO SCH (22:17)
[2022-08-26] MEDS: MELATONIN 5 MG TABLETS PO SCH (22:17)
[2022-08-26] MEDS ORDERED: cloNIDine HCL 0.1 MG TABLET PO ONE (22:48)
[2022-08-27] MEDS ORDERED: LORazepam 0.5 MG TABLET PO PRN
[2022-08-27] MEDS ORDERED: LORazepam 0.5 MG TABLET PO ONE (05:00)
[2022-08-27] MEDS: CLINDAMYCIN HCL 150 MG CAPSULE (FP) PO SCH ×2 (05:44→13:27)
[2022-08-27] MEDS: IBUPROFEN 600 MG TABLET (FP) PO PRN (06:38)
[2022-08-27] MEDS: PRENATAL VITAMINS W/ FOLIC ACID TABLET (FP) PO SCH (10:38)
[2022-08-27] MEDS: IBUPROFEN 400 MG TABLET (FP) PO PRN (10:41)
[2022-08-27] MEDS: NICOTINE 14 MG/24 HOURS TOPICAL PATCH TD SCH (10:47)
[2022-08-27 13:04] VITALS: BP 142/79; PULSE 83; TEMP 98.6
== END 2022-08-27 14:16 | disposition other institution (70) | DRG 774 ==
LOC: YASAS 10:34 → Y3N 08-24 00:40
PROVIDERS: ADMIT Allergy & Immunology; ATTEND Surgery
PROC: HZ2ZZZZ Detoxification Services for Substance Abuse Treatment (ICD-10-PCS; principal; 2022-08-24)
DX: F10.230 Alcohol dependence with withdrawal, uncomplicated (principal); F14.20 Cocaine dependence, uncomplicated; F13.20 Sedative, hypnotic or anxiolytic dependence, uncomplicated; F17.210 Nicotine dependence, cigarettes, uncomplicated; E87.6 Hypokalemia; L03.116 Cellulitis of left lower limb; K64.9 Unspecified hemorrhoids
CPT/HCPCS: 36415; 80053; 84132; 85027; 86780; C9803-CS; U0003; U0005

== ENCOUNTER 2022-08-23 12:41 | Emergency (ER) | payer OTHER ==
[2022-08-23 13:58] VITALS: RESP 17; BMI 32.5
[2022-08-23 14:22] LABS: BASO % 0.4 % (0-2.0); EOS % 1.1 % (0-4.5); HEMATOCRIT 31.9 % (35.4-49); LYMPH % 18.3 % (8-40); MCH 32.1 pg (25.7-33.7); MCHC 34.3 g/dl (32.0-35.9); MEAN CELL VOLUME 93.7 fl (80-96); MEAN PLT VOLUME 7.6 fl (7.5-11.1); NEUT % 73.2 % (42.8-82.8); PLATELET COUNT 159 10^3/uL (134-434); RBC 3.41 M/mm3 (4.00-5.60); RDW 14.3 % (11.9-15.9)
[2022-08-23 14:32] LABS: INR 1.23 (0.83-1.09); PROTHROMBIN TIME (PATIENT) 14.2 SEC (9.7-13.0)
[2022-08-23 14:34] LABS: ACTIVATED PTT 33.3 SECONDS (25.2-36.5)
[2022-08-23 14:44] LABS: ALBUMIN 3.1 g/dl (3.4-5.0); BLOOD UREA NITROGEN 6.4 mg/dL (7-18); CALCIUM 8.2 mg/dL (8.5-10.1)
[2022-08-23 14:48] LABS: CREATININE 0.7 mg/dL (0.55-1.3)
[2022-08-23 14:50] LABS: BILIRUBIN,TOTAL 0.6 mg/dL (0.2-1); TOT PROT 7.1 g/dl (6.4-8.2)
[2022-08-23 15:05] LABS: ERYTHROCYTE SEDIMENTATION RATE 34 mm/hr (0-20)
[2022-08-23] MEDS ORDERED: CLINDAMYCIN HCL 150 MG CAPSULE (FP) PO ONE (15:42)
[2022-08-23] MEDS ORDERED: CLINDAMYCIN HCL 150 MG CAPSULE (FP) ONE (16:26)
[2022-08-23] MEDS ORDERED: POTASSIUM CHLORIDE TABS 20 MEQ TABLET.ER (FP) PO ONE ×2 (17:25→17:27)
[2022-08-23] MEDS ORDERED: LORazepam 1 MG TABLET PO ONE (22:05)
[2022-08-23] MEDS ORDERED: LORazepam 1 MG TABLET ONE (22:08)
[2022-08-23 22:16] VITALS: BP 149/73; PULSE 72; TEMP 98.7
[2022-08-23] MEDS ORDERED: chlordiazePOXIDE HCL 25 MG CAPSULE PO ONE (22:17)
[2022-08-23] MEDS ORDERED: chlordiazePOXIDE HCL 25 MG CAPSULE ONE (22:18)
== END 2022-08-23 22:57 | disposition home or self-care (01) ==
LOC: JER 12:41
DX: L03.90 Cellulitis, unspecified (principal)
CPT/HCPCS: 36415; 73590-TC-LT-FY; 73610-TC-LT-FY; 73630-TC-LT; 80053; 85025; 85610; 85651; 85730; 86140; 87070; 87077; 87186; 87205; 99284-25

== ENCOUNTER 2022-08-27 14:18 | Inpatient (IN) | payer OTHER ==
[2022-08-27] MEDS ORDERED: P-EPHED 60MG/TRIPROLIDI 2.5MG TABLET PO PRN (14:41)
[2022-08-27] MEDS ORDERED: MAGNESIUM CITRATE 300 ML BOTTLE PO PRN (14:41)
[2022-08-27] MEDS ORDERED: hydrOXYzine PAMOATE 25 MG CAPSULE (FP) PO PRN (14:41)
[2022-08-27] MEDS ORDERED: MAGNESIUM HYDROX 2400MG/30ML ORAL SUSPENSION 30 ML CUP PO PRN (14:41)
[2022-08-27] MEDS ORDERED: guaiFENesin 200 MG/10 ML 10 ML UNIT-DOSE CUPS PO PRN (14:41)
[2022-08-27] MEDS ORDERED: BENZOCAINE/MENTHOL (CHLORASEPTIC ) LOZENGE MM PRN (14:41)
[2022-08-27] MEDS ORDERED: NICOTINE 10 MG CARTRIDGE (INHALER) IH PRN (14:41)
[2022-08-27] MEDS ORDERED: LOPERAMIDE HCL 2 MG CAPSULE PO PRN (14:41)
[2022-08-27] MEDS ORDERED: ACETAMINOPHEN 325 MG TABLET (FP) PO PRN (14:41)
[2022-08-27] MEDS: CLINDAMYCIN HCL 150 MG CAPSULE (FP) PO SCH (21:28)
[2022-08-27] MEDS: MELATONIN 5 MG TABLETS PO SCH (21:28)
[2022-08-27] MEDS: THIAMINE HCL 100 MG TABLET (FP) PO SCH (21:28)
[2022-08-27] MEDS: IBUPROFEN 400 MG TABLET (FP) PO PRN (21:29)
[2022-08-28] MEDS: CLINDAMYCIN HCL 150 MG CAPSULE (FP) PO SCH ×3 (06:22→21:13)
[2022-08-28] MEDS: IBUPROFEN 400 MG TABLET (FP) PO PRN ×2 (06:24→12:51)
[2022-08-28] MEDS: PRENATAL VITAMINS W/ FOLIC ACID TABLET (FP) PO SCH (10:28)
[2022-08-28] MEDS: NICOTINE 7 MG/24 HOURS TOPICAL PATCH TD SCH (10:28)
[2022-08-28] MEDS ORDERED: FLU VACC QS2022-23(6MOS UP)/PF 60 MCG/0.5 ML SYRINGE IM ONE (12:00)
[2022-08-28] MEDS ORDERED: PNEUMOC 20-VAL CONJ-DIP CRM/PF 0.5 ML SYRINGE IM ONE (12:00)
[2022-08-28] MEDS: MELATONIN 5 MG TABLETS PO SCH (21:13)
[2022-08-28] MEDS: THIAMINE HCL 100 MG TABLET (FP) PO SCH (21:13)
[2022-08-28] MEDS: IBUPROFEN 600 MG TABLET (FP) PO PRN (21:15)
[2022-08-29] MEDS: CLINDAMYCIN HCL 150 MG CAPSULE (FP) PO SCH ×3 (06:11→21:13)
[2022-08-29] MEDS: IBUPROFEN 600 MG TABLET (FP) PO PRN ×3 (06:12→21:14)
[2022-08-29] MEDS: PRENATAL VITAMINS W/ FOLIC ACID TABLET (FP) PO SCH (09:48)
[2022-08-29] MEDS: NICOTINE 7 MG/24 HOURS TOPICAL PATCH TD SCH (09:49)
[2022-08-29] MEDS: METHYL SALICYLATE/MENTHOL OINT 30 GM TUBE TP SCH (12:33)
[2022-08-29] MEDS: THIAMINE HCL 100 MG TABLET (FP) PO SCH (21:13)
[2022-08-29] MEDS: SUVOREXANT 5 MG TABLET PO PRN (21:14)
[2022-08-30] MEDS: CLINDAMYCIN HCL 150 MG CAPSULE (FP) PO SCH ×3 (06:05→21:08)
[2022-08-30] MEDS: IBUPROFEN 600 MG TABLET (FP) PO PRN ×2 (06:06→21:09)
[2022-08-30] MEDS: PRENATAL VITAMINS W/ FOLIC ACID TABLET (FP) PO SCH (10:00)
[2022-08-30] MEDS: NICOTINE 7 MG/24 HOURS TOPICAL PATCH TD SCH (10:00)
[2022-08-30] MEDS: METHYL SALICYLATE/MENTHOL OINT 30 GM TUBE TP SCH (10:01)
[2022-08-30] MEDS: BACITRACIN ZINC 15 GM TUBE TOPICAL OINTMENT TP SCH ×2 (16:30→21:08)
[2022-08-30] MEDS: THIAMINE HCL 100 MG TABLET (FP) PO SCH (21:08)
[2022-08-30] MEDS: SUVOREXANT 5 MG TABLET PO PRN (21:09)
[2022-08-31] MEDS: CLINDAMYCIN HCL 150 MG CAPSULE (FP) PO SCH ×3 (06:20→21:50)
[2022-08-31] MEDS: PRENATAL VITAMINS W/ FOLIC ACID TABLET (FP) PO SCH (10:21)
[2022-08-31] MEDS: BACITRACIN ZINC 15 GM TUBE TOPICAL OINTMENT TP SCH ×2 (10:22→21:50)
[2022-08-31] MEDS: NICOTINE 7 MG/24 HOURS TOPICAL PATCH TD SCH (10:22)
[2022-08-31] MEDS: METHYL SALICYLATE/MENTHOL OINT 30 GM TUBE TP SCH (10:22)
[2022-08-31] MEDS: IBUPROFEN 600 MG TABLET (FP) PO PRN ×2 (14:59→21:51)
[2022-08-31] MEDS: THIAMINE HCL 100 MG TABLET (FP) PO SCH (21:49)
[2022-08-31] MEDS: SUVOREXANT 5 MG TABLET PO PRN (21:53)
[2022-09-01] MEDS: CLINDAMYCIN HCL 150 MG CAPSULE (FP) PO SCH ×2 (06:02→13:28)
[2022-09-01] MEDS: IBUPROFEN 600 MG TABLET (FP) PO PRN ×2 (06:03→21:39)
[2022-09-01] MEDS: PRENATAL VITAMINS W/ FOLIC ACID TABLET (FP) PO SCH (10:28)
[2022-09-01] MEDS: BACITRACIN ZINC 15 GM TUBE TOPICAL OINTMENT TP SCH ×2 (10:29→21:39)
[2022-09-01] MEDS: METHYL SALICYLATE/MENTHOL OINT 30 GM TUBE TP SCH (10:29)
[2022-09-01] MEDS: NICOTINE 7 MG/24 HOURS TOPICAL PATCH TD SCH (10:30)
[2022-09-01] MEDS: THIAMINE HCL 100 MG TABLET (FP) PO SCH (21:39)
[2022-09-01] MEDS: SUVOREXANT 5 MG TABLET PO PRN (21:39)
[2022-09-02] MEDS: IBUPROFEN 600 MG TABLET (FP) PO PRN ×2 (06:57→21:31)
[2022-09-02] MEDS: NICOTINE 7 MG/24 HOURS TOPICAL PATCH TD SCH (10:07)
[2022-09-02] MEDS: PRENATAL VITAMINS W/ FOLIC ACID TABLET (FP) PO SCH (10:07)
[2022-09-02] MEDS: METHYL SALICYLATE/MENTHOL OINT 30 GM TUBE TP SCH (10:07)
[2022-09-02] MEDS: BACITRACIN ZINC 15 GM TUBE TOPICAL OINTMENT TP SCH ×2 (10:08→21:31)
[2022-09-02] MEDS: CLINDAMYCIN HCL 150 MG CAPSULE (FP) PO SCH ×3 (11:30→21:30)
[2022-09-02] MEDS: THIAMINE HCL 100 MG TABLET (FP) PO SCH (21:30)
[2022-09-02] MEDS: SUVOREXANT 5 MG TABLET PO PRN (21:31)
[2022-09-02 22:10] VITALS: BMI 29.5
[2022-09-03] MEDS: IBUPROFEN 600 MG TABLET (FP) PO PRN ×3 (06:21→21:32)
[2022-09-03] MEDS: CLINDAMYCIN HCL 150 MG CAPSULE (FP) PO SCH ×3 (06:22→21:31)
[2022-09-03] MEDS: NICOTINE 7 MG/24 HOURS TOPICAL PATCH TD SCH (09:37)
[2022-09-03] MEDS: BACITRACIN ZINC 15 GM TUBE TOPICAL OINTMENT TP SCH ×2 (09:37→21:31)
[2022-09-03] MEDS: METHYL SALICYLATE/MENTHOL OINT 30 GM TUBE TP SCH (09:37)
[2022-09-03] MEDS: PRENATAL VITAMINS W/ FOLIC ACID TABLET (FP) PO SCH (09:37)
[2022-09-03] MEDS: MAG HYDROX/AL HYDROX/SIMETH 30 ML UNIT-DOSE CUP PO PRN (13:19)
[2022-09-03] MEDS: THIAMINE HCL 100 MG TABLET (FP) PO SCH (21:31)
[2022-09-03] MEDS: SUVOREXANT 5 MG TABLET PO PRN (21:32)
[2022-09-04] MEDS: CLINDAMYCIN HCL 150 MG CAPSULE (FP) PO SCH ×3 (06:30→21:28)
[2022-09-04] MEDS: METHYL SALICYLATE/MENTHOL OINT 30 GM TUBE TP SCH (10:11)
[2022-09-04] MEDS: NICOTINE 7 MG/24 HOURS TOPICAL PATCH TD SCH (10:11)
[2022-09-04] MEDS: PRENATAL VITAMINS W/ FOLIC ACID TABLET (FP) PO SCH (10:11)
[2022-09-04] MEDS: BACITRACIN ZINC 15 GM TUBE TOPICAL OINTMENT TP SCH ×2 (10:11→21:30)
[2022-09-04] MEDS: THIAMINE HCL 100 MG TABLET (FP) PO SCH (21:28)
[2022-09-04] MEDS: SUVOREXANT 5 MG TABLET PO PRN (21:29)
[2022-09-04] MEDS: IBUPROFEN 600 MG TABLET (FP) PO PRN (21:29)
[2022-09-05] MEDS: CLINDAMYCIN HCL 150 MG CAPSULE (FP) PO SCH ×3 (06:55→21:28)
[2022-09-05] MEDS: NICOTINE 7 MG/24 HOURS TOPICAL PATCH TD SCH (09:59)
[2022-09-05] MEDS: PRENATAL VITAMINS W/ FOLIC ACID TABLET (FP) PO SCH (09:59)
[2022-09-05] MEDS: METHYL SALICYLATE/MENTHOL OINT 30 GM TUBE TP SCH (10:00)
[2022-09-05] MEDS: BACITRACIN ZINC 15 GM TUBE TOPICAL OINTMENT TP SCH ×2 (10:00→21:28)
[2022-09-05] MEDS: IBUPROFEN 600 MG TABLET (FP) PO PRN (10:00)
[2022-09-05] MEDS: MAG HYDROX/AL HYDROX/SIMETH 30 ML UNIT-DOSE CUP PO PRN (14:57)
[2022-09-05] MEDS: SUVOREXANT 5 MG TABLET PO PRN (21:29)
[2022-09-05] MEDS: THIAMINE HCL 100 MG TABLET (FP) PO SCH (21:29)
[2022-09-06] MEDS: CLINDAMYCIN HCL 150 MG CAPSULE (FP) PO SCH ×3 (06:44→21:26)
[2022-09-06] MEDS: IBUPROFEN 600 MG TABLET (FP) PO PRN (06:44)
[2022-09-06] MEDS: BACITRACIN ZINC 15 GM TUBE TOPICAL OINTMENT TP SCH ×2 (10:07→21:32)
[2022-09-06] MEDS: PRENATAL VITAMINS W/ FOLIC ACID TABLET (FP) PO SCH (10:07)
[2022-09-06] MEDS: NICOTINE 7 MG/24 HOURS TOPICAL PATCH TD SCH (10:07)
[2022-09-06] MEDS: METHYL SALICYLATE/MENTHOL OINT 30 GM TUBE TP SCH (10:08)
[2022-09-06] MEDS: THIAMINE HCL 100 MG TABLET (FP) PO SCH (21:26)
[2022-09-06] MEDS: SUVOREXANT 5 MG TABLET PO PRN (21:27)
[2022-09-07] MEDS: IBUPROFEN 600 MG TABLET (FP) PO PRN ×2 (06:50→21:43)
[2022-09-07] MEDS: CLINDAMYCIN HCL 150 MG CAPSULE (FP) PO SCH ×3 (06:50→21:43)
[2022-09-07] MEDS: PRENATAL VITAMINS W/ FOLIC ACID TABLET (FP) PO SCH (10:19)
[2022-09-07] MEDS: BACITRACIN ZINC 15 GM TUBE TOPICAL OINTMENT TP SCH ×2 (10:20→21:45)
[2022-09-07] MEDS: METHYL SALICYLATE/MENTHOL OINT 30 GM TUBE TP SCH (10:20)
[2022-09-07] MEDS: NICOTINE 7 MG/24 HOURS TOPICAL PATCH TD SCH (10:21)
[2022-09-07] MEDS: THIAMINE HCL 100 MG TABLET (FP) PO SCH (21:43)
[2022-09-07] MEDS: SUVOREXANT 5 MG TABLET PO PRN (21:44)
[2022-09-08] MEDS: CLINDAMYCIN HCL 150 MG CAPSULE (FP) PO SCH ×3 (06:37→21:22)
[2022-09-08] MEDS: IBUPROFEN 600 MG TABLET (FP) PO PRN ×3 (06:38→21:24)
[2022-09-08] MEDS: PRENATAL VITAMINS W/ FOLIC ACID TABLET (FP) PO SCH (09:58)
[2022-09-08] MEDS: METHYL SALICYLATE/MENTHOL OINT 30 GM TUBE TP SCH (10:00)
[2022-09-08] MEDS: BACITRACIN ZINC 15 GM TUBE TOPICAL OINTMENT TP SCH ×2 (10:00→21:23)
[2022-09-08] MEDS: NICOTINE 7 MG/24 HOURS TOPICAL PATCH TD SCH (10:00)
[2022-09-08] MEDS: SUVOREXANT 5 MG TABLET PO PRN (21:23)
[2022-09-08] MEDS: THIAMINE HCL 100 MG TABLET (FP) PO SCH (21:23)
[2022-09-09] MEDS: CLINDAMYCIN HCL 150 MG CAPSULE (FP) PO SCH ×3 (06:26→21:39)
[2022-09-09] MEDS: NICOTINE 7 MG/24 HOURS TOPICAL PATCH TD SCH (10:35)
[2022-09-09] MEDS: PRENATAL VITAMINS W/ FOLIC ACID TABLET (FP) PO SCH (10:35)
[2022-09-09] MEDS: BACITRACIN ZINC 15 GM TUBE TOPICAL OINTMENT TP SCH ×2 (10:37→21:38)
[2022-09-09] MEDS: IBUPROFEN 600 MG TABLET (FP) PO PRN ×2 (10:37→21:41)
[2022-09-09] MEDS: METHYL SALICYLATE/MENTHOL OINT 30 GM TUBE TP SCH (10:39)
[2022-09-09] MEDS: FUROSEMIDE 20 MG TABLET (FP) PO SCH (11:28)
[2022-09-09] MEDS ORDERED: CLINDAMYCIN HCL 150 MG CAPSULE (FP) PO SCH (14:00)
[2022-09-09] MEDS: MAG HYDROX/AL HYDROX/SIMETH 30 ML UNIT-DOSE CUP PO PRN (15:09)
[2022-09-09] MEDS: THIAMINE HCL 100 MG TABLET (FP) PO SCH (21:39)
[2022-09-09] MEDS ORDERED: SUVOREXANT 5 MG TABLET PO PRN (22:00)
[2022-09-10] MEDS: IBUPROFEN 600 MG TABLET (FP) PO PRN ×2 (06:03→22:16)
[2022-09-10] MEDS: CLINDAMYCIN HCL 150 MG CAPSULE (FP) PO SCH ×3 (06:03→22:16)
[2022-09-10] MEDS: NICOTINE 7 MG/24 HOURS TOPICAL PATCH TD SCH (10:19)
[2022-09-10] MEDS: PRENATAL VITAMINS W/ FOLIC ACID TABLET (FP) PO SCH (10:19)
[2022-09-10] MEDS: METHYL SALICYLATE/MENTHOL OINT 30 GM TUBE TP SCH (10:20)
[2022-09-10] MEDS: FUROSEMIDE 20 MG TABLET (FP) PO SCH (10:20)
[2022-09-10] MEDS: BACITRACIN ZINC 15 GM TUBE TOPICAL OINTMENT TP SCH ×2 (10:21→22:18)
[2022-09-10] MEDS: SUVOREXANT 10 MG TABLET PO PRN (22:15)
[2022-09-10] MEDS: METHOCARBAMOL 500 MG TABLET PO SCH (22:16)
[2022-09-10] MEDS: THIAMINE HCL 100 MG TABLET (FP) PO SCH (22:16)
[2022-09-10] MEDS: TOLNAFTATE 1% CREAM 15 GM TUBE TP SCH (22:17)
[2022-09-10] MEDS: MAG HYDROX/AL HYDROX/SIMETH 30 ML UNIT-DOSE CUP PO PRN (22:31)
[2022-09-11] MEDS: CLINDAMYCIN HCL 150 MG CAPSULE (FP) PO SCH ×3 (06:46→21:31)
[2022-09-11] MEDS: IBUPROFEN 600 MG TABLET (FP) PO PRN ×2 (06:48→21:32)
[2022-09-11] MEDS: METHYL SALICYLATE/MENTHOL OINT 30 GM TUBE TP SCH (10:16)
[2022-09-11] MEDS: PRENATAL VITAMINS W/ FOLIC ACID TABLET (FP) PO SCH (10:16)
[2022-09-11] MEDS: METHOCARBAMOL 500 MG TABLET PO SCH ×2 (10:16→21:31)
[2022-09-11] MEDS: FUROSEMIDE 20 MG TABLET (FP) PO SCH (10:16)
[2022-09-11] MEDS: BACITRACIN ZINC 15 GM TUBE TOPICAL OINTMENT TP SCH ×2 (10:16→21:32)
[2022-09-11] MEDS: TOLNAFTATE 1% CREAM 15 GM TUBE TP SCH ×2 (10:17→21:32)
[2022-09-11] MEDS: NICOTINE 7 MG/24 HOURS TOPICAL PATCH TD SCH (10:17)
[2022-09-11] MEDS: THIAMINE HCL 100 MG TABLET (FP) PO SCH (21:31)
[2022-09-11] MEDS: SUVOREXANT 10 MG TABLET PO PRN (21:32)
[2022-09-12] MEDS: CLINDAMYCIN HCL 150 MG CAPSULE (FP) PO SCH (06:33)
[2022-09-12] MEDS: IBUPROFEN 600 MG TABLET (FP) PO PRN ×2 (06:34→21:26)
[2022-09-12] MEDS: NICOTINE 7 MG/24 HOURS TOPICAL PATCH TD SCH (10:37)
[2022-09-12] MEDS: PRENATAL VITAMINS W/ FOLIC ACID TABLET (FP) PO SCH (10:37)
[2022-09-12] MEDS: METHYL SALICYLATE/MENTHOL OINT 30 GM TUBE TP SCH (10:38)
[2022-09-12] MEDS: METHOCARBAMOL 500 MG TABLET PO SCH ×2 (10:38→21:26)
[2022-09-12] MEDS: BACITRACIN ZINC 15 GM TUBE TOPICAL OINTMENT TP SCH ×2 (10:39→21:26)
[2022-09-12] MEDS: TOLNAFTATE 1% CREAM 15 GM TUBE TP SCH ×2 (10:39→21:26)
[2022-09-12] MEDS: FUROSEMIDE 20 MG TABLET (FP) PO SCH (11:29)
[2022-09-12] MEDS: SUVOREXANT 10 MG TABLET PO PRN (21:26)
[2022-09-12] MEDS: THIAMINE HCL 100 MG TABLET (FP) PO SCH (21:26)
[2022-09-13] MEDS: NICOTINE 7 MG/24 HOURS TOPICAL PATCH TD SCH (10:12)
[2022-09-13] MEDS: METHYL SALICYLATE/MENTHOL OINT 30 GM TUBE TP SCH (10:12)
[2022-09-13] MEDS: METHOCARBAMOL 500 MG TABLET PO SCH ×2 (10:12→21:26)
[2022-09-13] MEDS: BACITRACIN ZINC 15 GM TUBE TOPICAL OINTMENT TP SCH ×2 (10:12→21:28)
[2022-09-13] MEDS: TOLNAFTATE 1% CREAM 15 GM TUBE TP SCH ×2 (10:12→21:28)
[2022-09-13] MEDS: PRENATAL VITAMINS W/ FOLIC ACID TABLET (FP) PO SCH (10:12)
[2022-09-13] MEDS: THIAMINE HCL 100 MG TABLET (FP) PO SCH (21:26)
[2022-09-13] MEDS: IBUPROFEN 600 MG TABLET (FP) PO PRN (21:26)
[2022-09-13] MEDS: SUVOREXANT 10 MG TABLET PO PRN (21:27)
[2022-09-14 06:40] VITALS: RESP 18
[2022-09-14] MEDS: METHOCARBAMOL 500 MG TABLET PO SCH ×2 (10:37→21:46)
[2022-09-14] MEDS: NICOTINE 7 MG/24 HOURS TOPICAL PATCH TD SCH (10:37)
[2022-09-14] MEDS: BACITRACIN ZINC 15 GM TUBE TOPICAL OINTMENT TP SCH ×2 (10:37→21:47)
[2022-09-14] MEDS: METHYL SALICYLATE/MENTHOL OINT 30 GM TUBE TP SCH (10:37)
[2022-09-14] MEDS: PRENATAL VITAMINS W/ FOLIC ACID TABLET (FP) PO SCH (10:37)
[2022-09-14] MEDS: TOLNAFTATE 1% CREAM 15 GM TUBE TP SCH ×2 (10:44→21:47)
[2022-09-14] MEDS: IBUPROFEN 600 MG TABLET (FP) PO PRN (15:07)
[2022-09-14] MEDS: THIAMINE HCL 100 MG TABLET (FP) PO SCH (21:46)
[2022-09-14] MEDS: SUVOREXANT 10 MG TABLET PO PRN (21:46)
[2022-09-15] MEDS: NICOTINE 7 MG/24 HOURS TOPICAL PATCH TD SCH (10:01)
[2022-09-15] MEDS: PRENATAL VITAMINS W/ FOLIC ACID TABLET (FP) PO SCH (10:01)
[2022-09-15] MEDS: METHOCARBAMOL 500 MG TABLET PO SCH ×2 (10:01→21:20)
[2022-09-15] MEDS: TOLNAFTATE 1% CREAM 15 GM TUBE TP SCH ×2 (10:02→21:20)
[2022-09-15] MEDS: METHYL SALICYLATE/MENTHOL OINT 30 GM TUBE TP SCH (10:02)
[2022-09-15] MEDS: BACITRACIN ZINC 15 GM TUBE TOPICAL OINTMENT TP SCH ×2 (10:02→21:20)
[2022-09-15] MEDS: IBUPROFEN 600 MG TABLET (FP) PO PRN ×2 (10:03→21:22)
[2022-09-15] MEDS: THIAMINE HCL 100 MG TABLET (FP) PO SCH (21:20)
[2022-09-15] MEDS: SUVOREXANT 10 MG TABLET PO PRN (21:21)
[2022-09-16] MEDS: TOLNAFTATE 1% CREAM 15 GM TUBE TP SCH ×2 (10:05→21:28)
[2022-09-16] MEDS: BACITRACIN ZINC 15 GM TUBE TOPICAL OINTMENT TP SCH ×2 (10:05→21:27)
[2022-09-16] MEDS: METHOCARBAMOL 500 MG TABLET PO SCH ×2 (10:06→21:26)
[2022-09-16] MEDS: METHYL SALICYLATE/MENTHOL OINT 30 GM TUBE TP SCH (10:06)
[2022-09-16] MEDS: PRENATAL VITAMINS W/ FOLIC ACID TABLET (FP) PO SCH (10:06)
[2022-09-16] MEDS: NICOTINE 7 MG/24 HOURS TOPICAL PATCH TD SCH (10:07)
[2022-09-16] MEDS ORDERED: NICOTINE 7 MG/24 HOURS TOPICAL PATCH TD PRN (12:34)
[2022-09-16] MEDS: SUVOREXANT 10 MG TABLET PO PRN (21:26)
[2022-09-16] MEDS: IBUPROFEN 600 MG TABLET (FP) PO PRN (21:26)
[2022-09-16] MEDS: THIAMINE HCL 100 MG TABLET (FP) PO SCH (21:26)
[2022-09-17] MEDS: METHYL SALICYLATE/MENTHOL OINT 30 GM TUBE TP SCH (10:26)
[2022-09-17] MEDS: PRENATAL VITAMINS W/ FOLIC ACID TABLET (FP) PO SCH (10:26)
[2022-09-17] MEDS: METHOCARBAMOL 500 MG TABLET PO SCH ×2 (10:26→21:11)
[2022-09-17] MEDS: BACITRACIN ZINC 15 GM TUBE TOPICAL OINTMENT TP SCH ×2 (10:27→21:12)
[2022-09-17] MEDS: TOLNAFTATE 1% CREAM 15 GM TUBE TP SCH ×2 (10:27→21:12)
[2022-09-17] MEDS: IBUPROFEN 600 MG TABLET (FP) PO PRN ×2 (10:31→21:11)
[2022-09-17] MEDS: THIAMINE HCL 100 MG TABLET (FP) PO SCH (21:11)
[2022-09-17] MEDS: SUVOREXANT 10 MG TABLET PO PRN (21:12)
[2022-09-18 06:56] VITALS: TEMP 97.8
[2022-09-18] MEDS: IBUPROFEN 600 MG TABLET (FP) PO PRN ×2 (09:51→21:05)
[2022-09-18] MEDS: METHOCARBAMOL 500 MG TABLET PO SCH ×2 (09:51→21:04)
[2022-09-18] MEDS: PRENATAL VITAMINS W/ FOLIC ACID TABLET (FP) PO SCH (09:51)
[2022-09-18] MEDS: BACITRACIN ZINC 15 GM TUBE TOPICAL OINTMENT TP SCH ×2 (09:51→21:06)
[2022-09-18] MEDS: TOLNAFTATE 1% CREAM 15 GM TUBE TP SCH ×2 (09:51→21:06)
[2022-09-18] MEDS: METHYL SALICYLATE/MENTHOL OINT 30 GM TUBE TP SCH (09:51)
[2022-09-18] MEDS: THIAMINE HCL 100 MG TABLET (FP) PO SCH (21:04)
[2022-09-18] MEDS ORDERED: SUVOREXANT 10 MG TABLET PO PRN (22:00)
[2022-09-19 06:37] VITALS: BP 126/80; PULSE 87
[2022-09-19] MEDS: BACITRACIN ZINC 15 GM TUBE TOPICAL OINTMENT TP SCH (09:35)
[2022-09-19] MEDS: TOLNAFTATE 1% CREAM 15 GM TUBE TP SCH (09:35)
[2022-09-19] MEDS: METHYL SALICYLATE/MENTHOL OINT 30 GM TUBE TP SCH (09:35)
[2022-09-19] MEDS: PRENATAL VITAMINS W/ FOLIC ACID TABLET (FP) PO SCH (09:36)
[2022-09-19] MEDS: METHOCARBAMOL 500 MG TABLET PO SCH (09:36)
== END 2022-09-19 10:00 | disposition home or self-care (01) | DRG 772 ==
LOC: YASAS 14:18 → Y3W 14:20
PROVIDERS: ADMIT Allergy & Immunology; ATTEND Psychiatry & Neurology Pain Medicine
PROC: HZ42ZZZ Group Counseling for Substance Abuse Treatment, Cognitive-Behavioral (ICD-10-PCS; principal; 2022-08-27)
DX: F10.20 Alcohol dependence, uncomplicated (principal); F14.20 Cocaine dependence, uncomplicated; F13.20 Sedative, hypnotic or anxiolytic dependence, uncomplicated; F17.210 Nicotine dependence, cigarettes, uncomplicated; F19.282 Other psychoactive substance dependence with psychoactive substance-induced sleep disorder; L03.116 Cellulitis of left lower limb; S81.802A Unspecified open wound, left lower leg, initial encounter; X58.XXXA Exposure to other specified factors, initial encounter; Y92.9 Unspecified place or not applicable; Z87.19 Personal history of other diseases of the digestive system; Z99.89 Dependence on other enabling machines and devices; Z59.00 Homelessness unspecified
CPT/HCPCS: 82962; 90677; G0008; Q2036

== ENCOUNTER 2022-11-02 12:28 | Inpatient (IN) | payer OTHER ==
[2022-11-02 16:54] VITALS: BMI 32.5
[2022-11-02] MEDS ORDERED: NALOXONE HCL (KLOXXADO) 8 MG SPRAY NS PRN (20:45)
[2022-11-02] MEDS ORDERED: LOPERAMIDE HCL 2 MG CAPSULE PO PRN (20:45)
[2022-11-02] MEDS ORDERED: METHOCARBAMOL 500 MG TABLET PO PRN (20:45)
[2022-11-02] MEDS ORDERED: IBUPROFEN 400 MG TABLET (FP) PO PRN (20:45)
[2022-11-02] MEDS ORDERED: DICYCLOMINE HCL 10 MG CAPSULE PO PRN (20:45)
[2022-11-02] MEDS ORDERED: ONDANSETRON *ODT* 4 MG TABLET SL PRN (20:45)
[2022-11-02] MEDS ORDERED: BISMUTH SUBSALICYLATE 524 MG/30 ML PO PRN (20:45)
[2022-11-02] MEDS ORDERED: MAG HYDROX/AL HYDROX/SIMETH 30 ML UNIT-DOSE CUP PO PRN (20:45)
[2022-11-02] MEDS ORDERED: ACETAMINOPHEN 325 MG TABLET (FP) PO PRN ×2 (20:45)
[2022-11-02] MEDS ORDERED: POLYETHYLENE GLYCOL (HEALTHYLAX) 3350 17 GM PACKET PO PRN (20:45)
[2022-11-02] MEDS ORDERED: MAGNESIUM HYDROX 2400MG/30ML ORAL SUSPENSION 30 ML CUP PO PRN (20:45)
[2022-11-02] MEDS ORDERED: hydrOXYzine PAMOATE 25 MG CAPSULE (FP) PO PRN (20:45)
[2022-11-02] MEDS ORDERED: NICOTINE POLACRILEX 2 MG GUM BUC PRN (20:45)
[2022-11-02] MEDS ORDERED: BENZOCAINE/MENTHOL (CHLORASEPTIC ) LOZENGE MM PRN (20:45)
[2022-11-02] MEDS ORDERED: cloNIDine HCL 0.1 MG TABLET PO ONE (20:47)
[2022-11-02] MEDS ORDERED: cloNIDine HCL 0.1 MG TABLET ONE (21:37)
[2022-11-02] MEDS: MELATONIN 5 MG TABLETS PO SCH (22:25)
[2022-11-02] MEDS: THIAMINE HCL 100 MG TABLET (FP) PO SCH (22:25)
[2022-11-03] MEDS: CEPHALEXIN MONOHYDRATE 500 MG CAPSULE (UD) PO SCH ×5 (00:50→23:24)
[2022-11-03] MEDS: IBUPROFEN 600 MG TABLET (FP) PO PRN ×2 (05:34→17:35)
[2022-11-03 11:06] LABS: HEMATOCRIT 31.9 % (35.4-49); HEMOGLOBIN 10.5 GM/dL (11.7-16.9); MCH 30.8 pg (25.7-33.7); MCHC 32.8 g/dl (32.0-35.9); MEAN CELL VOLUME 93.9 fl (80-96); MEAN PLT VOLUME 8.6 fl (7.5-11.1); PLATELET COUNT 182 10^3/uL (134-434); RBC 3.39 M/mm3 (4.00-5.60); RDW 16.5 % (11.9-15.9); WHITE BLOOD COUNT 4.3 K/mm3 (4.0-10.0)
[2022-11-03] MEDS: PRENATAL VITAMINS W/ FOLIC ACID TABLET (FP) PO SCH (11:08)
[2022-11-03] MEDS: NICOTINE 14 MG/24 HOURS TOPICAL PATCH TD SCH (11:08)
[2022-11-03 11:14] LABS: ALBUMIN 2.8 g/dl (3.4-5.0); CALCIUM 8.4 mg/dL (8.5-10.1)
[2022-11-03 11:15] LABS: BLOOD UREA NITROGEN 7.8 mg/dL (7-18)
[2022-11-03 11:17] LABS: CREATININE 0.8 mg/dL (0.55-1.3)
[2022-11-03 11:19] LABS: BILIRUBIN,TOTAL 0.9 mg/dL (0.2-1); TOT PROT 6.7 g/dl (6.4-8.2)
[2022-11-03] MEDS: THIAMINE HCL 100 MG TABLET (FP) PO SCH (22:16)
[2022-11-03] MEDS: MELATONIN 5 MG TABLETS PO SCH (22:16)
[2022-11-04] MEDS: CEPHALEXIN MONOHYDRATE 500 MG CAPSULE (UD) PO SCH ×2 (05:38→11:10)
[2022-11-04 06:18] VITALS: BP 132/86; PULSE 84; RESP 18; TEMP 97.2
[2022-11-04] MEDS: PRENATAL VITAMINS W/ FOLIC ACID TABLET (FP) PO SCH (11:08)
[2022-11-04] MEDS: IBUPROFEN 600 MG TABLET (FP) PO PRN (11:08)
[2022-11-04] MEDS: NICOTINE 14 MG/24 HOURS TOPICAL PATCH TD SCH (11:10)
[2022-11-04] MEDS ORDERED: POTASSIUM CHLORIDE ORAL LIQUID 20 MEQ/15 ML PO ONE ×2 (12:25→16:25)
== END 2022-11-04 12:20 | disposition other institution (70) | DRG 775 ==
LOC: YASAS 12:28 → UNDOADMIN 21:25 → Y6N 21:25
PROVIDERS: ADMIT Allergy & Immunology; ATTEND Surgery
PROC: HZ2ZZZZ Detoxification Services for Substance Abuse Treatment (ICD-10-PCS; principal; 2022-11-02)
DX: F10.230 Alcohol dependence with withdrawal, uncomplicated (principal); F17.210 Nicotine dependence, cigarettes, uncomplicated; F19.282 Other psychoactive substance dependence with psychoactive substance-induced sleep disorder; L03.116 Cellulitis of left lower limb; E66.9 Obesity, unspecified; Z68.32 Body mass index [BMI] 32.0-32.9, adult; Z99.89 Dependence on other enabling machines and devices
CPT/HCPCS: 36415; 80053; 85027; 86780; 87811; C9803-CS; U0003; U0005

== ENCOUNTER 2022-11-04 12:34 | Inpatient (IN) | payer OTHER ==
[2022-11-04] MEDS ORDERED: LOPERAMIDE HCL 2 MG CAPSULE PO PRN (12:39)
[2022-11-04] MEDS ORDERED: ACETAMINOPHEN 325 MG TABLET (FP) PO PRN (12:39)
[2022-11-04] MEDS ORDERED: BENZOCAINE/MENTHOL (CHLORASEPTIC ) LOZENGE MM PRN (12:39)
[2022-11-04] MEDS ORDERED: POLYETHYLENE GLYCOL (HEALTHYLAX) 3350 17 GM PACKET PO PRN (12:39)
[2022-11-04] MEDS ORDERED: P-EPHED 60MG/TRIPROLIDI 2.5MG TABLET PO PRN (12:39)
[2022-11-04] MEDS ORDERED: NICOTINE POLACRILEX 2 MG GUM BUC PRN (12:39)
[2022-11-04] MEDS ORDERED: MAGNESIUM HYDROX 2400MG/30ML ORAL SUSPENSION 30 ML CUP PO PRN (12:39)
[2022-11-04] MEDS ORDERED: guaiFENesin 200 MG/10 ML 10 ML UNIT-DOSE CUPS PO PRN (12:39)
[2022-11-04] MEDS ORDERED: NICOTINE 10 MG CARTRIDGE (INHALER) IH PRN (12:39)
[2022-11-04] MEDS ORDERED: IBUPROFEN 400 MG TABLET (FP) PO PRN (12:39)
[2022-11-04] MEDS ORDERED: MAG HYDROX/AL HYDROX/SIMETH 30 ML UNIT-DOSE CUP PO PRN (12:39)
[2022-11-04] MEDS ORDERED: CEPHALEXIN MONOHYDRATE 500 MG CAPSULE (UD) PO SCH (12:45)
[2022-11-04] MEDS ORDERED: POTASSIUM CHLORIDE ORAL LIQUID 20 MEQ/15 ML PO ONE ×3 (13:00→17:00)
[2022-11-04] MEDS: CEPHALEXIN MONOHYDRATE 500 MG CAPSULE (UD) PO SCH (18:20)
[2022-11-04] MEDS: THIAMINE HCL 100 MG TABLET (FP) PO SCH (21:44)
[2022-11-04] MEDS: MELATONIN 5 MG TABLETS PO SCH (21:44)
[2022-11-04] MEDS: hydrOXYzine PAMOATE 25 MG CAPSULE (FP) PO PRN (21:50)
[2022-11-05] MEDS: CEPHALEXIN MONOHYDRATE 500 MG CAPSULE (UD) PO SCH ×4 (00:25→17:03)
[2022-11-05] MEDS: NICOTINE 14 MG/24 HOURS TOPICAL PATCH TD SCH (09:32)
[2022-11-05] MEDS: PRENATAL VITAMINS W/ FOLIC ACID TABLET (FP) PO SCH (09:32)
[2022-11-05] MEDS: MELATONIN 5 MG TABLETS PO SCH (21:51)
[2022-11-05] MEDS: THIAMINE HCL 100 MG TABLET (FP) PO SCH (21:51)
[2022-11-05] MEDS: IBUPROFEN 600 MG TABLET (FP) PO PRN (21:53)
[2022-11-05] MEDS: hydrOXYzine PAMOATE 25 MG CAPSULE (FP) PO PRN (21:54)
[2022-11-06] MEDS: CEPHALEXIN MONOHYDRATE 500 MG CAPSULE (UD) PO SCH ×5 (00:37→23:35)
[2022-11-06] MEDS: IBUPROFEN 600 MG TABLET (FP) PO PRN ×2 (06:57→21:56)
[2022-11-06] MEDS: PRENATAL VITAMINS W/ FOLIC ACID TABLET (FP) PO SCH (09:17)
[2022-11-06] MEDS: FERROUS SO4 325 MG TABLET (FP) PO SCH (09:17)
[2022-11-06] MEDS: NICOTINE 14 MG/24 HOURS TOPICAL PATCH TD SCH (09:19)
[2022-11-06 13:20] LABS: BLOOD UREA NITROGEN 10.1 mg/dL (7-18); CALCIUM 8.6 mg/dL (8.5-10.1)
[2022-11-06 13:24] LABS: CREATININE 0.7 mg/dL (0.55-1.3)
[2022-11-06 13:25] LABS: BILIRUBIN,TOTAL 0.8 mg/dL (0.2-1); TOT PROT 7.3 g/dl (6.4-8.2)
[2022-11-06] MEDS: THIAMINE HCL 100 MG TABLET (FP) PO SCH (21:53)
[2022-11-06] MEDS: SUVOREXANT 10 MG TABLET PO PRN (21:53)
[2022-11-07] MEDS: CEPHALEXIN MONOHYDRATE 500 MG CAPSULE (UD) PO SCH ×3 (06:58→18:28)
[2022-11-07] MEDS: IBUPROFEN 600 MG TABLET (FP) PO PRN ×2 (07:00→21:48)
[2022-11-07] MEDS: PRENATAL VITAMINS W/ FOLIC ACID TABLET (FP) PO SCH (09:17)
[2022-11-07] MEDS: FERROUS SO4 325 MG TABLET (FP) PO SCH (09:18)
[2022-11-07] MEDS: NICOTINE 14 MG/24 HOURS TOPICAL PATCH TD SCH (09:18)
[2022-11-07] MEDS: THIAMINE HCL 100 MG TABLET (FP) PO SCH (21:45)
[2022-11-07] MEDS: SUVOREXANT 10 MG TABLET PO PRN (21:47)
[2022-11-08] MEDS: CEPHALEXIN MONOHYDRATE 500 MG CAPSULE (UD) PO SCH ×4 (00:06→17:30)
[2022-11-08] MEDS: IBUPROFEN 600 MG TABLET (FP) PO PRN (06:46)
[2022-11-08] MEDS: PRENATAL VITAMINS W/ FOLIC ACID TABLET (FP) PO SCH (09:31)
[2022-11-08] MEDS: FERROUS SO4 325 MG TABLET (FP) PO SCH (09:31)
[2022-11-08] MEDS: NICOTINE 14 MG/24 HOURS TOPICAL PATCH TD SCH (09:31)
[2022-11-08] MEDS: THIAMINE HCL 100 MG TABLET (FP) PO SCH (21:37)
[2022-11-08] MEDS: SUVOREXANT 10 MG TABLET PO PRN (21:37)
[2022-11-09] MEDS: CEPHALEXIN MONOHYDRATE 500 MG CAPSULE (UD) PO SCH ×4 (00:09→18:08)
[2022-11-09] MEDS: IBUPROFEN 600 MG TABLET (FP) PO PRN ×2 (06:43→21:58)
[2022-11-09] MEDS: PRENATAL VITAMINS W/ FOLIC ACID TABLET (FP) PO SCH (09:36)
[2022-11-09] MEDS: NICOTINE 14 MG/24 HOURS TOPICAL PATCH TD SCH (09:36)
[2022-11-09] MEDS: FERROUS SO4 325 MG TABLET (FP) PO SCH (09:36)
[2022-11-09] MEDS: hydrOXYzine PAMOATE 25 MG CAPSULE (FP) PO PRN (21:58)
[2022-11-09] MEDS: THIAMINE HCL 100 MG TABLET (FP) PO SCH (21:58)
[2022-11-10] MEDS: CEPHALEXIN MONOHYDRATE 500 MG CAPSULE (UD) PO SCH ×4 (00:22→17:46)
[2022-11-10] MEDS: IBUPROFEN 600 MG TABLET (FP) PO PRN ×2 (06:33→21:45)
[2022-11-10] MEDS: FERROUS SO4 325 MG TABLET (FP) PO SCH (09:29)
[2022-11-10] MEDS: PRENATAL VITAMINS W/ FOLIC ACID TABLET (FP) PO SCH (09:29)
[2022-11-10] MEDS: NICOTINE 14 MG/24 HOURS TOPICAL PATCH TD SCH (09:29)
[2022-11-10] MEDS: SUVOREXANT 10 MG TABLET PO PRN (21:44)
[2022-11-10] MEDS: THIAMINE HCL 100 MG TABLET (FP) PO SCH (21:45)
[2022-11-11] MEDS: CEPHALEXIN MONOHYDRATE 500 MG CAPSULE (UD) PO SCH ×3 (00:11→11:36)
[2022-11-11] MEDS: IBUPROFEN 600 MG TABLET (FP) PO PRN ×2 (06:45→21:18)
[2022-11-11] MEDS: NICOTINE 14 MG/24 HOURS TOPICAL PATCH TD SCH (09:24)
[2022-11-11] MEDS: FERROUS SO4 325 MG TABLET (FP) PO SCH (09:24)
[2022-11-11] MEDS: PRENATAL VITAMINS W/ FOLIC ACID TABLET (FP) PO SCH (09:24)
[2022-11-11] MEDS: BACITRACIN 0.9 GM PACKET TP SCH ×2 (11:52→21:18)
[2022-11-11] MEDS: SUVOREXANT 10 MG TABLET PO PRN (21:18)
[2022-11-11] MEDS: THIAMINE HCL 100 MG TABLET (FP) PO SCH (21:18)
[2022-11-12] MEDS: IBUPROFEN 600 MG TABLET (FP) PO PRN ×2 (06:30→21:06)
[2022-11-12] MEDS: BACITRACIN 0.9 GM PACKET TP SCH ×2 (09:21→21:05)
[2022-11-12] MEDS: PRENATAL VITAMINS W/ FOLIC ACID TABLET (FP) PO SCH (09:21)
[2022-11-12] MEDS: FERROUS SO4 325 MG TABLET (FP) PO SCH (09:21)
[2022-11-12] MEDS: NICOTINE 14 MG/24 HOURS TOPICAL PATCH TD SCH (09:22)
[2022-11-12] MEDS: PETROLATUM, WHITE 30 GM TUBE TP SCH (09:22)
[2022-11-12] MEDS: THIAMINE HCL 100 MG TABLET (FP) PO SCH (21:05)
[2022-11-13] MEDS: IBUPROFEN 600 MG TABLET (FP) PO PRN ×2 (07:09→21:13)
[2022-11-13] MEDS: NICOTINE 14 MG/24 HOURS TOPICAL PATCH TD SCH (09:41)
[2022-11-13] MEDS: PRENATAL VITAMINS W/ FOLIC ACID TABLET (FP) PO SCH (09:41)
[2022-11-13] MEDS: FERROUS SO4 325 MG TABLET (FP) PO SCH (09:41)
[2022-11-13] MEDS: PETROLATUM, WHITE 30 GM TUBE TP SCH (09:41)
[2022-11-13] MEDS: BACITRACIN 0.9 GM PACKET TP SCH ×2 (09:41→21:14)
[2022-11-13] MEDS: THIAMINE HCL 100 MG TABLET (FP) PO SCH (21:14)
[2022-11-14] MEDS ORDERED: CALAMINE 8% TOPICAL LOTION 177 ML BOTTLE TP PRN (08:39)
[2022-11-14] MEDS: FERROUS SO4 325 MG TABLET (FP) PO SCH (09:35)
[2022-11-14] MEDS: NICOTINE 14 MG/24 HOURS TOPICAL PATCH TD SCH (09:35)
[2022-11-14] MEDS: PRENATAL VITAMINS W/ FOLIC ACID TABLET (FP) PO SCH (09:35)
[2022-11-14] MEDS: BACITRACIN 0.9 GM PACKET TP SCH ×2 (09:35→21:14)
[2022-11-14] MEDS: IBUPROFEN 600 MG TABLET (FP) PO PRN ×2 (09:37→21:14)
[2022-11-14] MEDS: PETROLATUM, WHITE 30 GM TUBE TP SCH (09:52)
[2022-11-14] MEDS: SUVOREXANT 10 MG TABLET PO PRN (21:15)
[2022-11-14] MEDS: THIAMINE HCL 100 MG TABLET (FP) PO SCH (21:16)
[2022-11-15] MEDS: BACITRACIN 0.9 GM PACKET TP SCH ×2 (10:19→21:36)
[2022-11-15] MEDS: FERROUS SO4 325 MG TABLET (FP) PO SCH (10:19)
[2022-11-15] MEDS: NICOTINE 14 MG/24 HOURS TOPICAL PATCH TD SCH (10:20)
[2022-11-15] MEDS: PETROLATUM, WHITE 30 GM TUBE TP SCH (10:20)
[2022-11-15] MEDS: PRENATAL VITAMINS W/ FOLIC ACID TABLET (FP) PO SCH (10:20)
[2022-11-15] MEDS: THIAMINE HCL 100 MG TABLET (FP) PO SCH (21:36)
[2022-11-15] MEDS: SUVOREXANT 10 MG TABLET PO PRN (21:37)
[2022-11-15] MEDS: IBUPROFEN 600 MG TABLET (FP) PO PRN (21:37)
[2022-11-16] MEDS: PETROLATUM, WHITE 30 GM TUBE TP SCH (10:59)
[2022-11-16] MEDS: FERROUS SO4 325 MG TABLET (FP) PO SCH (10:59)
[2022-11-16] MEDS: NICOTINE 14 MG/24 HOURS TOPICAL PATCH TD SCH (10:59)
[2022-11-16] MEDS: PRENATAL VITAMINS W/ FOLIC ACID TABLET (FP) PO SCH (10:59)
[2022-11-16] MEDS: BACITRACIN 0.9 GM PACKET TP SCH ×2 (10:59→22:01)
[2022-11-16] MEDS: IBUPROFEN 600 MG TABLET (FP) PO PRN ×2 (11:01→22:03)
[2022-11-16] MEDS ORDERED: SUVOREXANT 10 MG TABLET PO PRN (22:00)
[2022-11-16] MEDS: THIAMINE HCL 100 MG TABLET (FP) PO SCH (22:01)
[2022-11-17] MEDS: BACITRACIN 0.9 GM PACKET TP SCH ×2 (09:42→21:34)
[2022-11-17] MEDS: FERROUS SO4 325 MG TABLET (FP) PO SCH (09:42)
[2022-11-17] MEDS: PRENATAL VITAMINS W/ FOLIC ACID TABLET (FP) PO SCH (09:42)
[2022-11-17] MEDS: NICOTINE 14 MG/24 HOURS TOPICAL PATCH TD SCH (09:42)
[2022-11-17] MEDS: PETROLATUM, WHITE 30 GM TUBE TP SCH (09:43)
[2022-11-17] MEDS: IBUPROFEN 600 MG TABLET (FP) PO PRN (09:44)
[2022-11-17] MEDS: THIAMINE HCL 100 MG TABLET (FP) PO SCH (21:34)
[2022-11-18] MEDS: NICOTINE 14 MG/24 HOURS TOPICAL PATCH TD SCH (09:56)
[2022-11-18] MEDS: PRENATAL VITAMINS W/ FOLIC ACID TABLET (FP) PO SCH (09:56)
[2022-11-18] MEDS: FERROUS SO4 325 MG TABLET (FP) PO SCH (09:56)
[2022-11-18] MEDS: BACITRACIN 0.9 GM PACKET TP SCH ×2 (09:56→21:50)
[2022-11-18] MEDS: PETROLATUM, WHITE 30 GM TUBE TP SCH (09:57)
[2022-11-18] MEDS: IBUPROFEN 600 MG TABLET (FP) PO PRN (09:58)
[2022-11-18] MEDS: THIAMINE HCL 100 MG TABLET (FP) PO SCH (21:49)
[2022-11-19] MEDS: NICOTINE 14 MG/24 HOURS TOPICAL PATCH TD SCH (10:06)
[2022-11-19] MEDS: PRENATAL VITAMINS W/ FOLIC ACID TABLET (FP) PO SCH (10:06)
[2022-11-19] MEDS: FERROUS SO4 325 MG TABLET (FP) PO SCH (10:07)
[2022-11-19] MEDS: BACITRACIN 0.9 GM PACKET TP SCH ×2 (10:07→21:28)
[2022-11-19] MEDS: PETROLATUM, WHITE 30 GM TUBE TP SCH (10:07)
[2022-11-19] MEDS: IBUPROFEN 600 MG TABLET (FP) PO PRN ×2 (10:08→21:30)
[2022-11-19] MEDS: THIAMINE HCL 100 MG TABLET (FP) PO SCH (21:28)
[2022-11-19] MEDS ORDERED: SUVOREXANT 10 MG TABLET PO PRN (22:00)
[2022-11-20] MEDS: FERROUS SO4 325 MG TABLET (FP) PO SCH (10:05)
[2022-11-20] MEDS: PRENATAL VITAMINS W/ FOLIC ACID TABLET (FP) PO SCH (10:05)
[2022-11-20] MEDS: NICOTINE 14 MG/24 HOURS TOPICAL PATCH TD SCH (10:05)
[2022-11-20] MEDS: BACITRACIN 0.9 GM PACKET TP SCH ×2 (10:05→21:52)
[2022-11-20] MEDS: IBUPROFEN 600 MG TABLET (FP) PO PRN ×2 (10:06→21:52)
[2022-11-20] MEDS: PETROLATUM, WHITE 30 GM TUBE TP SCH (11:10)
[2022-11-20] MEDS: THIAMINE HCL 100 MG TABLET (FP) PO SCH (21:52)
[2022-11-21] MEDS: PRENATAL VITAMINS W/ FOLIC ACID TABLET (FP) PO SCH (10:00)
[2022-11-21] MEDS: NICOTINE 14 MG/24 HOURS TOPICAL PATCH TD SCH (10:00)
[2022-11-21] MEDS: IBUPROFEN 600 MG TABLET (FP) PO PRN ×2 (10:01→21:57)
[2022-11-21] MEDS: FERROUS SO4 325 MG TABLET (FP) PO SCH (10:03)
[2022-11-21] MEDS: PETROLATUM, WHITE 30 GM TUBE TP SCH (10:03)
[2022-11-21] MEDS: BACITRACIN 0.9 GM PACKET TP SCH ×2 (10:04→21:57)
[2022-11-21] MEDS: HYDROCHLOROTHIAZIDE 12.5 MG CAPSULE (FP) PO SCH (15:57)
[2022-11-21] MEDS: THIAMINE HCL 100 MG TABLET (FP) PO SCH (21:57)
[2022-11-22] MEDS: IBUPROFEN 600 MG TABLET (FP) PO PRN (07:17)
[2022-11-22 07:19] VITALS: PULSE 94; TEMP 98.2
[2022-11-22] MEDS: FERROUS SO4 325 MG TABLET (FP) PO SCH (09:31)
[2022-11-22] MEDS: BACITRACIN 0.9 GM PACKET TP SCH (09:31)
[2022-11-22] MEDS: HYDROCHLOROTHIAZIDE 12.5 MG CAPSULE (FP) PO SCH (09:31)
[2022-11-22] MEDS: PRENATAL VITAMINS W/ FOLIC ACID TABLET (FP) PO SCH (09:31)
[2022-11-22] MEDS: NICOTINE 14 MG/24 HOURS TOPICAL PATCH TD SCH (09:32)
[2022-11-22 09:34] VITALS: BP 141/83; RESP 18
[2022-11-22] MEDS: PETROLATUM, WHITE 30 GM TUBE TP SCH (09:34)
== END 2022-11-22 14:30 | disposition home or self-care (01) | DRG 774 ==
LOC: YASAS 12:34 → Y5N 12:35
PROVIDERS: ADMIT Allergy & Immunology; ATTEND Psychiatry & Neurology Pain Medicine
PROC: HZ2ZZZZ Detoxification Services for Substance Abuse Treatment (ICD-10-PCS; principal; 2022-11-04)
DX: F10.20 Alcohol dependence, uncomplicated (principal); F14.20 Cocaine dependence, uncomplicated; F17.210 Nicotine dependence, cigarettes, uncomplicated; F19.282 Other psychoactive substance dependence with psychoactive substance-induced sleep disorder; D64.9 Anemia, unspecified; I10 Essential (primary) hypertension; R60.0 Localized edema; R79.89 Other specified abnormal findings of blood chemistry; L97.929 Non-pressure chronic ulcer of unspecified part of left lower leg with unspecified severity; L03.116 Cellulitis of left lower limb; E66.9 Obesity, unspecified; Z68.32 Body mass index [BMI] 32.0-32.9, adult; Z99.3 Dependence on wheelchair
CPT/HCPCS: 36415; 80053; 82140; 84132; 86803; C9803-CS; U0003; U0005

== ENCOUNTER 2023-01-17 14:20 | Inpatient (IN) | payer OTHER ==
[2023-01-17] MEDS ORDERED: ACETAMINOPHEN 1000 MG/100 ML BAG IVPB ONE (15:42)
[2023-01-17] MEDS ORDERED: VANCOMYCIN 1 GM in D5W (PRE-DOCKED) 1,000 MG/250 ML IVPB ONE (16:50)
[2023-01-17] MEDS ORDERED: diazePAM CARPU-JECT 10 MG/2 ML DISP.SYRIN IVPUSH ONE (16:51)
[2023-01-17] MEDS ORDERED: CEFEPIME HCL/D5W 2 GM/50 ML BAG IVPB ONE (16:53)
[2023-01-17] MEDS ORDERED: ACETAMINOPHEN INJECTION 100 ML IVPB ONE (16:55)
[2023-01-17] MEDS ORDERED: CEFEPIME 2 GM/100 ML BAG IVPB ONE (17:00)
[2023-01-17] MEDS ORDERED: diazePAM CARPU-JECT 10 MG/2 ML DISP.SYRIN ONE (17:00)
[2023-01-17 17:13] LABS: BASO % 0.3 % (0-2.0); EOS % 1.8 % (0-4.5); HEMATOCRIT 32.8 % (35.4-49); HEMOGLOBIN 11.2 GM/dL (11.7-16.9); LYMPH % 17.4 % (8-40); MCH 30.1 pg (25.7-33.7); MCHC 34.1 g/dl (32.0-35.9); MEAN CELL VOLUME 88.3 fl (80-96); MEAN PLT VOLUME 8.2 fl (7.5-11.1); MONO % 6.1 % (3.8-10.2); NEUT % 74.4 % (42.8-82.8); PLATELET COUNT 191 10^3/uL (134-434); RBC 3.72 M/mm3 (4.00-5.60); RDW 14.5 % (11.9-15.9); WHITE BLOOD COUNT 7.9 K/mm3 (4.0-10.0)
[2023-01-17] MEDS ORDERED: VANCOMYCIN/WATER FOR INJ (PEG) 1,000 MG/200 ML BAG IVPB ONE (17:32)
[2023-01-17 17:39] LABS: CALCIUM 8.9 mg/dL (8.5-10.1)
[2023-01-17 17:40] LABS: ALBUMIN 3.2 g/dl (3.4-5.0); BLOOD UREA NITROGEN 8.5 mg/dL (7-18)
[2023-01-17 17:43] LABS: CREATININE 0.5 mg/dL (0.55-1.3)
[2023-01-17 17:44] LABS: BILIRUBIN,TOTAL 0.4 mg/dL (0.2-1); TOT PROT 7.6 g/dl (6.4-8.2)
[2023-01-17] MEDS ORDERED: THIAMINE HCL 200 MG/2 ML VIAL IVPB ONE (17:44)
[2023-01-17 17:48] LABS: N-TERMINAL BNP 7.4 pg/ml (5-125)
[2023-01-17] MEDS ORDERED: THIAMINE HCL 200 MG/2 ML VIAL ONE (17:57)
[2023-01-17] MEDS ORDERED: diazePAM 5 MG TABLET PO PRN (23:14)
[2023-01-18] MEDS: FOLIC ACID 1 MG TABLET (FP) PO SCH ×2 (00:39→10:27)
[2023-01-18] MEDS: diazePAM 5 MG TABLET PO SCH ×5 (00:45→22:45)
[2023-01-18 04:27] VITALS: BMI 31.5
[2023-01-18] MEDS ORDERED: ACETAMINOPHEN 1000 MG/100 ML BAG IVPB PRN (04:47)
[2023-01-18] MEDS: CEFEPIME 1 GM in DEXTROSE 5%-WATER - 50 ML IVPB SCH ×2 (06:22→17:23)
[2023-01-18] MEDS: VANCOMYCIN PREMIX 1.75 GM 1,750 MG/350 ML PIGGYBACK IVPB SCH ×4 (06:53→19:27)
[2023-01-18] MEDS ORDERED: VANCOMYCIN/WATER 1,250 MG/250 ML BAG (RESTRICTED TO ID ONLY) IVPB SCH (10:00)
[2023-01-18 10:20] LABS: BASO % 0.3 % (0-2.0); EOS % 2.7 % (0-4.5); HEMATOCRIT 31.4 % (35.4-49); HEMOGLOBIN 10.8 GM/dL (11.7-16.9); LYMPH % 26.1 % (8-40); MCH 30.5 pg (25.7-33.7); MCHC 34.3 g/dl (32.0-35.9); MEAN CELL VOLUME 88.8 fl (80-96); MEAN PLT VOLUME 8.7 fl (7.5-11.1); MONO % 6.1 % (3.8-10.2); NEUT % 64.8 % (42.8-82.8); PLATELET COUNT 159 10^3/uL (134-434); RBC 3.54 M/mm3 (4.00-5.60); RDW 14.1 % (11.9-15.9); WHITE BLOOD COUNT 6.1 K/mm3 (4.0-10.0)
[2023-01-18] MEDS: THIAMINE HCL 200 MG/2 ML VIAL IVPB SCH (10:27)
[2023-01-18] MEDS: ENOXAPARIN NA (PORCINE) 40 MG/0.4 ML DISP.SYRIN SQ SCH (10:35)
[2023-01-18 10:52] LABS: CALCIUM 8.4 mg/dL (8.5-10.1)
[2023-01-18 10:53] LABS: ALBUMIN 2.7 g/dl (3.4-5.0); BLOOD UREA NITROGEN 10.8 mg/dL (7-18); MAGNESIUM 1.7 mg/dL (1.8-2.4)
[2023-01-18 10:55] LABS: CREATININE 0.7 mg/dL (0.55-1.3)
[2023-01-18 10:56] LABS: PHOSPHOROUS 3.1 mg/dL (2.5-4.9)
[2023-01-18 10:57] LABS: BILIRUBIN,TOTAL 0.7 mg/dL (0.2-1); TOT PROT 6.8 g/dl (6.4-8.2)
[2023-01-18] MEDS ORDERED: MAGNESIUM OXIDE 400 MG TABLET (FP) PO ONE (15:00)
[2023-01-18] MEDS: GABAPENTIN 100 MG CAPSULE PO SCH ×2 (15:25→22:45)
[2023-01-18] MEDS: LIDOCAINE 5% TOPICAL PATCH TP SCH (15:25)
[2023-01-18] MEDS: CEFEPIME HCL/D5W 1 GM/50 ML BAG IVPB SCH ×2 (18:50→18:51)
[2023-01-18] MEDS: PIPERACILLIN/TAZOB 4.5 GM 4.5 GM in DEXTROSE 5%-WATER 100 ML IVPB SCH (19:18)
[2023-01-19] MEDS: PIPERACILLIN/TAZOB 4.5 GM 4.5 GM in DEXTROSE 5%-WATER 100 ML IVPB SCH ×3 (02:58→17:07)
[2023-01-19] MEDS: LIDOCAINE PATCH REMOVAL MC SCH (07:24)
[2023-01-19] MEDS: GABAPENTIN 100 MG CAPSULE PO SCH ×3 (07:25→21:27)
[2023-01-19] MEDS: diazePAM 5 MG TABLET PO SCH ×3 (07:29→21:28)
[2023-01-19 09:37] LABS: BASO % 0.4 % (0-2.0); EOS % 3.5 % (0-4.5); HEMATOCRIT 28.9 % (35.4-49); HEMOGLOBIN 10.9 GM/dL (11.7-16.9); LYMPH % 31.6 % (8-40); MCH 35.4 pg (25.7-33.7); MCHC 37.8 g/dl (32.0-35.9); MEAN CELL VOLUME 93.8 fl (80-96); MEAN PLT VOLUME 9.1 fl (7.5-11.1); MONO % 6.1 % (3.8-10.2); NEUT % 58.4 % (42.8-82.8); PLATELET COUNT 169 10^3/uL (134-434); RBC 3.09 M/mm3 (4.00-5.60); WHITE BLOOD COUNT 4.7 K/mm3 (4.0-10.0)
[2023-01-19 09:50] LABS: ALBUMIN 2.8 g/dl (3.4-5.0); BLOOD UREA NITROGEN 9.1 mg/dL (7-18); CALCIUM 8.4 mg/dL (8.5-10.1); MAGNESIUM 1.7 mg/dL (1.8-2.4)
[2023-01-19 09:53] LABS: CREATININE 0.5 mg/dL (0.55-1.3)
[2023-01-19 09:55] LABS: BILIRUBIN,TOTAL 0.6 mg/dL (0.2-1); TOT PROT 6.9 g/dl (6.4-8.2)
[2023-01-19] MEDS: ENOXAPARIN NA (PORCINE) 40 MG/0.4 ML DISP.SYRIN SQ SCH (10:36)
[2023-01-19] MEDS: LIDOCAINE 5% TOPICAL PATCH TP SCH (10:53)
[2023-01-19] MEDS: THIAMINE HCL 200 MG/2 ML VIAL IVPB SCH (10:54)
[2023-01-19] MEDS: FOLIC ACID 1 MG TABLET (FP) PO SCH (10:58)
[2023-01-19] MEDS: POTASSIUM CHLORIDE TABS 20 MEQ TABLET.ER (FP) PO SCH ×2 (14:46→21:27)
[2023-01-20] MEDS: PIPERACILLIN/TAZOB 4.5 GM 4.5 GM in DEXTROSE 5%-WATER 100 ML IVPB SCH ×3 (03:10→17:45)
[2023-01-20] MEDS: LIDOCAINE PATCH REMOVAL MC SCH (06:48)
[2023-01-20] MEDS: GABAPENTIN 100 MG CAPSULE PO SCH ×3 (07:37→22:33)
[2023-01-20] MEDS: diazePAM 5 MG TABLET PO SCH ×2 (07:38→18:06)
[2023-01-20] MEDS: IBUPROFEN 600 MG TABLET (FP) PO PRN ×2 (08:08→18:05)
[2023-01-20] MEDS: ENOXAPARIN NA (PORCINE) 40 MG/0.4 ML DISP.SYRIN SQ SCH (09:20)
[2023-01-20] MEDS: LIDOCAINE 5% TOPICAL PATCH TP SCH (09:20)
[2023-01-20] MEDS: FOLIC ACID 1 MG TABLET (FP) PO SCH (09:20)
[2023-01-20 09:35] LABS: BASO % 0.5 % (0-2.0); EOS % 4.2 % (0-4.5); HEMATOCRIT 32.3 % (35.4-49); HEMOGLOBIN 11.3 GM/dL (11.7-16.9); MCH 30.8 pg (25.7-33.7); MEAN CELL VOLUME 88.1 fl (80-96); MEAN PLT VOLUME 8.6 fl (7.5-11.1); MONO % 7.1 % (3.8-10.2); NEUT % 57.2 % (42.8-82.8); PLATELET COUNT 190 10^3/uL (134-434); RBC 3.67 M/mm3 (4.00-5.60); RDW 14.2 % (11.9-15.9); WHITE BLOOD COUNT 4.7 K/mm3 (4.0-10.0)
[2023-01-20 10:02] LABS: BLOOD UREA NITROGEN 12.4 mg/dL (7-18); CALCIUM 8.8 mg/dL (8.5-10.1); MAGNESIUM 1.7 mg/dL (1.8-2.4)
[2023-01-20 10:03] LABS: CREATININE 0.6 mg/dL (0.55-1.3)
[2023-01-20 10:06] LABS: BILIRUBIN,TOTAL 0.3 mg/dL (0.2-1); TOT PROT 7.4 g/dl (6.4-8.2)
[2023-01-20] MEDS: THIAMINE HCL 200 MG/2 ML VIAL IVPB SCH (12:28)
[2023-01-20 22:36] VITALS: RESP 20
[2023-01-21] MEDS: PIPERACILLIN/TAZOB 4.5 GM 4.5 GM in DEXTROSE 5%-WATER 100 ML IVPB SCH ×3 (01:44→17:27)
[2023-01-21] MEDS: LIDOCAINE PATCH REMOVAL MC SCH (04:08)
[2023-01-21] MEDS ORDERED: diazePAM 5 MG TABLET PO ONE (06:00)
[2023-01-21] MEDS: GABAPENTIN 100 MG CAPSULE PO SCH ×3 (07:09→21:51)
[2023-01-21] MEDS: THIAMINE HCL 200 MG/2 ML VIAL IVPB SCH (11:05)
[2023-01-21] MEDS: IBUPROFEN 600 MG TABLET (FP) PO PRN ×2 (11:05→21:50)
[2023-01-21] MEDS: ENOXAPARIN NA (PORCINE) 40 MG/0.4 ML DISP.SYRIN SQ SCH (11:06)
[2023-01-21] MEDS: FOLIC ACID 1 MG TABLET (FP) PO SCH (11:06)
[2023-01-21] MEDS: LIDOCAINE 5% TOPICAL PATCH TP SCH (11:07)
[2023-01-21] MEDS ORDERED: LORazepam 1 MG TABLET PO PRN (17:49)
[2023-01-22] MEDS: PIPERACILLIN/TAZOB 4.5 GM 4.5 GM in DEXTROSE 5%-WATER 100 ML IVPB SCH ×3 (01:34→17:39)
[2023-01-22] MEDS: LIDOCAINE PATCH REMOVAL MC SCH (03:06)
[2023-01-22] MEDS: IBUPROFEN 600 MG TABLET (FP) PO PRN ×3 (05:26→23:23)
[2023-01-22] MEDS: GABAPENTIN 100 MG CAPSULE PO SCH ×3 (05:26→23:00)
[2023-01-22 08:42] LABS: BASO % 0.5 % (0-2.0); EOS % 3.5 % (0-4.5); HEMATOCRIT 31.6 % (35.4-49); HEMOGLOBIN 10.8 GM/dL (11.7-16.9); MCH 30.5 pg (25.7-33.7); MCHC 34.1 g/dl (32.0-35.9); MEAN CELL VOLUME 89.5 fl (80-96); MEAN PLT VOLUME 8.4 fl (7.5-11.1); PLATELET COUNT 178 10^3/uL (134-434); RBC 3.53 M/mm3 (4.00-5.60); RDW 14.1 % (11.9-15.9); WHITE BLOOD COUNT 4.4 K/mm3 (4.0-10.0)
[2023-01-22 09:11] LABS: CALCIUM 8.7 mg/dL (8.5-10.1)
[2023-01-22 09:12] LABS: BLOOD UREA NITROGEN 13.4 mg/dL (7-18)
[2023-01-22 09:15] LABS: CREATININE 0.6 mg/dL (0.55-1.3)
[2023-01-22 09:16] LABS: MAGNESIUM 1.5 mg/dL (1.8-2.4)
[2023-01-22 09:17] LABS: BILIRUBIN,TOTAL 0.2 mg/dL (0.2-1); TOT PROT 7.1 g/dl (6.4-8.2)
[2023-01-22] MEDS: ENOXAPARIN NA (PORCINE) 40 MG/0.4 ML DISP.SYRIN SQ SCH (09:23)
[2023-01-22] MEDS: LIDOCAINE 5% TOPICAL PATCH TP SCH ×2 (09:23→09:36)
[2023-01-22] MEDS: FOLIC ACID 1 MG TABLET (FP) PO SCH (09:23)
[2023-01-22] MEDS: THIAMINE HCL 200 MG/2 ML VIAL IVPB SCH (10:39)
[2023-01-22] MEDS ORDERED: MAGNESIUM OXIDE 400 MG TABLET (FP) PO ONE (16:17)
[2023-01-23] MEDS: PIPERACILLIN/TAZOB 4.5 GM 4.5 GM in DEXTROSE 5%-WATER 100 ML IVPB SCH ×3 (02:45→17:41)
[2023-01-23] MEDS: LIDOCAINE PATCH REMOVAL MC SCH (03:13)
[2023-01-23] MEDS: GABAPENTIN 100 MG CAPSULE PO SCH ×3 (06:07→22:42)
[2023-01-23] MEDS: IBUPROFEN 600 MG TABLET (FP) PO PRN ×2 (09:19→17:42)
[2023-01-23] MEDS: LIDOCAINE 5% TOPICAL PATCH TP SCH (09:19)
[2023-01-23] MEDS: FOLIC ACID 1 MG TABLET (FP) PO SCH (09:19)
[2023-01-23] MEDS: THIAMINE HCL 100 MG TABLET (FP) PO SCH (09:19)
[2023-01-23] MEDS: ENOXAPARIN NA (PORCINE) 40 MG/0.4 ML DISP.SYRIN SQ SCH (09:19)
[2023-01-23 12:01] LABS: BASO % 0.4 % (0-2.0); EOS % 3.1 % (0-4.5); HEMATOCRIT 31.2 % (35.4-49); HEMOGLOBIN 10.7 GM/dL (11.7-16.9); LYMPH % 32.4 % (8-40); MCH 30.4 pg (25.7-33.7); MCHC 34.2 g/dl (32.0-35.9); MEAN CELL VOLUME 88.7 fl (80-96); MEAN PLT VOLUME 7.9 fl (7.5-11.1); MONO % 10.6 % (3.8-10.2); NEUT % 53.5 % (42.8-82.8); PLATELET COUNT 175 10^3/uL (134-434); RBC 3.52 M/mm3 (4.00-5.60); RDW 14.1 % (11.9-15.9); WHITE BLOOD COUNT 4.4 K/mm3 (4.0-10.0)
[2023-01-23 12:42] LABS: CALCIUM 8.6 mg/dL (8.5-10.1)
[2023-01-23 12:43] LABS: ALBUMIN 2.8 g/dl (3.4-5.0); MAGNESIUM 1.5 mg/dL (1.8-2.4)
[2023-01-23 12:46] LABS: BILIRUBIN,TOTAL 0.2 mg/dL (0.2-1); CREATININE 0.6 mg/dL (0.55-1.3)
[2023-01-24] MEDS: LIDOCAINE PATCH REMOVAL MC SCH (03:47)
[2023-01-24] MEDS: IBUPROFEN 600 MG TABLET (FP) PO PRN ×2 (05:47→14:05)
[2023-01-24] MEDS: GABAPENTIN 100 MG CAPSULE PO SCH ×2 (05:47→14:05)
[2023-01-24 06:52] VITALS: BP 138/75; PULSE 88; TEMP 98.2
[2023-01-24] MEDS ORDERED: AMOX TR/POT CLAV 875MG/125MG TABLETS (FP) PO SCH (08:00)
[2023-01-24 09:01] LABS: BASO % 0.3 % (0-2.0); EOS % 2.2 % (0-4.5); HEMOGLOBIN 10.4 GM/dL (11.7-16.9); LYMPH % 35.7 % (8-40); MCH 30.7 pg (25.7-33.7); MCHC 34.6 g/dl (32.0-35.9); MEAN CELL VOLUME 88.8 fl (80-96); MEAN PLT VOLUME 8.2 fl (7.5-11.1); MONO % 11.5 % (3.8-10.2); NEUT % 50.3 % (42.8-82.8); PLATELET COUNT 173 10^3/uL (134-434); RBC 3.38 M/mm3 (4.00-5.60); RDW 14.6 % (11.9-15.9); WHITE BLOOD COUNT 4.4 K/mm3 (4.0-10.0)
[2023-01-24 09:29] LABS: ALBUMIN 2.9 g/dl (3.4-5.0); BLOOD UREA NITROGEN 14.5 mg/dL (7-18); CALCIUM 8.7 mg/dL (8.5-10.1); MAGNESIUM 1.6 mg/dL (1.8-2.4)
[2023-01-24 09:32] LABS: CREATININE 0.6 mg/dL (0.55-1.3)
[2023-01-24 09:33] LABS: TOT PROT 6.9 g/dl (6.4-8.2)
[2023-01-24 09:34] LABS: BILIRUBIN,TOTAL 0.2 mg/dL (0.2-1)
[2023-01-24] MEDS: FOLIC ACID 1 MG TABLET (FP) PO SCH (09:42)
[2023-01-24] MEDS: ENOXAPARIN NA (PORCINE) 40 MG/0.4 ML DISP.SYRIN SQ SCH (09:42)
[2023-01-24] MEDS: THIAMINE HCL 100 MG TABLET (FP) PO SCH (09:42)
[2023-01-24] MEDS: LIDOCAINE 5% TOPICAL PATCH TP SCH (09:42)
[2023-01-24] MEDS ORDERED: MAGNESIUM OXIDE 400 MG TABLET (FP) PO ONE (09:50)
[2023-01-25] MEDS ORDERED: MAGNESIUM OXIDE 400 MG TABLET (FP) PO SCH (10:00)
== END 2023-01-24 14:51 | disposition other institution (70) | DRG 383 ==
LOC: JER 14:20 → JERBED 17:47 → J8W 21:59
PROVIDERS: ADMIT Internal Medicine; ATTEND Nurse Practitioner Family
DX: L03.115 Cellulitis of right lower limb (principal); L03.116 Cellulitis of left lower limb; F14.20 Cocaine dependence, uncomplicated; F10.239 Alcohol dependence with withdrawal, unspecified; F17.200 Nicotine dependence, unspecified, uncomplicated; Z68.31 Body mass index [BMI] 31.0-31.9, adult; Z59.00 Homelessness unspecified; E66.9 Obesity, unspecified
CPT/HCPCS: 0241U-QW; 36415; 73590-TC-LT-FY; 73590-TC-RT-FY; 73630-TC-LT; 73630-TC-RT-FY; 73700-TC-RT; 80053; 83735; 83880; 84100; 85025; 85651; 86140; 87040; 87081; 93306-TC; 93970-TC; 97116-GP; 97162-GP; 99285-25; J3370

== ENCOUNTER 2023-01-24 15:40 | Inpatient (IN) | payer OTHER ==
[2023-01-24 17:10] VITALS: BMI 29.5
[2023-01-24] MEDS ORDERED: NICOTINE 10 MG CARTRIDGE (INHALER) IH PRN (18:32)
[2023-01-24] MEDS ORDERED: BENZOCAINE/MENTHOL (CHLORASEPTIC ) LOZENGE MM PRN (18:32)
[2023-01-24] MEDS ORDERED: MAG HYDROX/AL HYDROX/SIMETH 30 ML UNIT-DOSE CUP PO PRN (18:32)
[2023-01-24] MEDS ORDERED: guaiFENesin 600 MG TABLET.ER (FP) PO PRN (18:32)
[2023-01-24] MEDS ORDERED: BENZONATATE 200 MG CAPSULE PO PRN (18:32)
[2023-01-24] MEDS ORDERED: P-EPHED 60MG/TRIPROLIDI 2.5MG TABLET PO PRN (18:32)
[2023-01-24] MEDS ORDERED: LOPERAMIDE HCL 2 MG CAPSULE PO PRN (18:32)
[2023-01-24] MEDS ORDERED: ACETAMINOPHEN 325 MG TABLET (FP) PO PRN (18:32)
[2023-01-24] MEDS ORDERED: POLYETHYLENE GLYCOL (HEALTHYLAX) 3350 17 GM PACKET PO PRN (18:32)
[2023-01-24] MEDS ORDERED: MAGNESIUM HYDROX 2400MG/30ML ORAL SUSPENSION 30 ML CUP PO PRN (18:32)
[2023-01-25] MEDS: MELATONIN 5 MG TABLETS PO SCH ×2 (01:44→23:09)
[2023-01-25] MEDS: THIAMINE HCL 100 MG TABLET (FP) PO SCH ×2 (01:45→23:09)
[2023-01-25] MEDS ORDERED: IBUPROFEN 600 MG TABLET (FP) PO ONE (02:15)
[2023-01-25] MEDS: AMOX TR/POT CLAV 875MG/125MG TABLETS (FP) PO SCH ×2 (08:24→17:06)
[2023-01-25] MEDS ORDERED: FOLIC ACID 1 MG TABLET (FP) PO SCH (10:00)
[2023-01-25] MEDS: FUROSEMIDE 20 MG TABLET (FP) PO SCH (12:51)
[2023-01-25] MEDS: PRENATAL VITAMINS W/ FOLIC ACID TABLET (FP) PO SCH (12:52)
[2023-01-25] MEDS: IBUPROFEN 600 MG TABLET (FP) PO PRN (12:53)
[2023-01-25] MEDS: TOLNAFTATE 1% CREAM 15 GM TUBE TP SCH ×2 (12:54→23:09)
[2023-01-26] MEDS: IBUPROFEN 600 MG TABLET (FP) PO PRN ×2 (06:54→10:05)
[2023-01-26] MEDS: AMOX TR/POT CLAV 875MG/125MG TABLETS (FP) PO SCH ×2 (07:05→16:50)
[2023-01-26] MEDS: TOLNAFTATE 1% CREAM 15 GM TUBE TP SCH ×2 (10:02→21:05)
[2023-01-26] MEDS: PRENATAL VITAMINS W/ FOLIC ACID TABLET (FP) PO SCH (10:02)
[2023-01-26] MEDS: FUROSEMIDE 20 MG TABLET (FP) PO SCH (10:02)
[2023-01-26] MEDS: MELATONIN 5 MG TABLETS PO SCH (21:04)
[2023-01-26] MEDS: THIAMINE HCL 100 MG TABLET (FP) PO SCH (21:04)
[2023-01-27] MEDS: IBUPROFEN 600 MG TABLET (FP) PO PRN ×2 (06:42→17:31)
[2023-01-27] MEDS: AMOX TR/POT CLAV 875MG/125MG TABLETS (FP) PO SCH ×2 (07:10→17:31)
[2023-01-27] MEDS: PRENATAL VITAMINS W/ FOLIC ACID TABLET (FP) PO SCH (09:47)
[2023-01-27] MEDS: FUROSEMIDE 20 MG TABLET (FP) PO SCH (09:48)
[2023-01-27] MEDS: TOLNAFTATE 1% CREAM 15 GM TUBE TP SCH ×2 (09:49→21:05)
[2023-01-27] MEDS: THIAMINE HCL 100 MG TABLET (FP) PO SCH (21:06)
[2023-01-27] MEDS: MELATONIN 5 MG TABLETS PO SCH (21:07)
[2023-01-28] MEDS: COLLOIDAL OATMEAL 1 BAR EACH TP PRN (09:41)
[2023-01-28] MEDS: PRENATAL VITAMINS W/ FOLIC ACID TABLET (FP) PO SCH (09:41)
[2023-01-28] MEDS: IBUPROFEN 600 MG TABLET (FP) PO PRN (09:42)
[2023-01-28] MEDS: TOLNAFTATE 1% CREAM 15 GM TUBE TP SCH ×2 (09:42→21:48)
[2023-01-28] MEDS: FUROSEMIDE 20 MG TABLET (FP) PO SCH (10:25)
[2023-01-28] MEDS: THIAMINE HCL 100 MG TABLET (FP) PO SCH (21:48)
[2023-01-28] MEDS: MELATONIN 5 MG TABLETS PO SCH (21:48)
[2023-01-29] MEDS: PRENATAL VITAMINS W/ FOLIC ACID TABLET (FP) PO SCH (09:28)
[2023-01-29] MEDS: TOLNAFTATE 1% CREAM 15 GM TUBE TP SCH ×2 (09:28→21:24)
[2023-01-29] MEDS: FUROSEMIDE 20 MG TABLET (FP) PO SCH (09:28)
[2023-01-29] MEDS: IBUPROFEN 600 MG TABLET (FP) PO PRN ×2 (09:29→21:24)
[2023-01-29] MEDS: THIAMINE HCL 100 MG TABLET (FP) PO SCH (21:24)
[2023-01-29] MEDS: MELATONIN 5 MG TABLETS PO SCH (21:26)
[2023-01-30] MEDS: PRENATAL VITAMINS W/ FOLIC ACID TABLET (FP) PO SCH (09:54)
[2023-01-30] MEDS: METHOCARBAMOL 500 MG TABLET PO PRN (09:55)
[2023-01-30] MEDS: FUROSEMIDE 20 MG TABLET (FP) PO SCH (09:55)
[2023-01-30] MEDS: IBUPROFEN 600 MG TABLET (FP) PO PRN (09:56)
[2023-01-30] MEDS: TOLNAFTATE 1% CREAM 15 GM TUBE TP SCH ×2 (09:58→23:00)
[2023-01-30] MEDS: METHYL SALICYLATE/MENTHOL OINT 30 GM TUBE TP SCH ×2 (14:37→23:00)
[2023-01-30] MEDS: THIAMINE HCL 100 MG TABLET (FP) PO SCH (23:00)
[2023-01-30] MEDS: MELATONIN 5 MG TABLETS PO SCH (23:00)
[2023-01-31] MEDS: PRENATAL VITAMINS W/ FOLIC ACID TABLET (FP) PO SCH (09:35)
[2023-01-31] MEDS: METHOCARBAMOL 500 MG TABLET PO PRN (09:38)
[2023-01-31] MEDS: METHYL SALICYLATE/MENTHOL OINT 30 GM TUBE TP SCH (09:41)
[2023-01-31] MEDS: TOLNAFTATE 1% CREAM 15 GM TUBE TP SCH (09:42)
[2023-01-31] MEDS ORDERED: AMOX TR/POT CLAV 875MG/125MG TABLETS (FP) PO ONE (09:44)
[2023-01-31] MEDS: BACITRACIN 0.9 GM PACKET TP SCH (12:08)
[2023-01-31] MEDS: FUROSEMIDE 20 MG TABLET (FP) PO SCH (12:08)
[2023-01-31] MEDS: AMOX TR/POT CLAV 875MG/125MG TABLETS (FP) PO SCH (17:21)
[2023-02-01] MEDS: THIAMINE HCL 100 MG TABLET (FP) PO SCH ×2 (00:02→21:47)
[2023-02-01] MEDS: TOLNAFTATE 1% CREAM 15 GM TUBE TP SCH ×3 (00:02→21:48)
[2023-02-01] MEDS: METHYL SALICYLATE/MENTHOL OINT 30 GM TUBE TP SCH ×3 (00:02→21:51)
[2023-02-01] MEDS: MELATONIN 5 MG TABLETS PO SCH ×2 (00:02→21:48)
[2023-02-01] MEDS: BACITRACIN 0.9 GM PACKET TP SCH ×3 (00:02→21:47)
[2023-02-01] MEDS: METHOCARBAMOL 500 MG TABLET PO PRN ×2 (06:41→17:42)
[2023-02-01] MEDS: AMOX TR/POT CLAV 875MG/125MG TABLETS (FP) PO SCH ×2 (07:05→17:38)
[2023-02-01 07:12] VITALS: RESP 18
[2023-02-01] MEDS: FUROSEMIDE 20 MG TABLET (FP) PO SCH (11:32)
[2023-02-01] MEDS: PRENATAL VITAMINS W/ FOLIC ACID TABLET (FP) PO SCH (11:33)
[2023-02-01] MEDS: IBUPROFEN 600 MG TABLET (FP) PO PRN (21:47)
[2023-02-02] MEDS: METHOCARBAMOL 500 MG TABLET PO PRN (06:59)
[2023-02-02] MEDS: AMOX TR/POT CLAV 875MG/125MG TABLETS (FP) PO SCH ×2 (07:41→17:15)
[2023-02-02] MEDS: METHYL SALICYLATE/MENTHOL OINT 30 GM TUBE TP SCH ×2 (11:17→22:45)
[2023-02-02] MEDS: BACITRACIN 0.9 GM PACKET TP SCH ×2 (11:17→22:44)
[2023-02-02] MEDS: PRENATAL VITAMINS W/ FOLIC ACID TABLET (FP) PO SCH (11:18)
[2023-02-02] MEDS: TOLNAFTATE 1% CREAM 15 GM TUBE TP SCH (11:18)
[2023-02-02] MEDS: FUROSEMIDE 20 MG TABLET (FP) PO SCH (11:18)
[2023-02-02] MEDS: IBUPROFEN 600 MG TABLET (FP) PO PRN (17:55)
[2023-02-02] MEDS: MELATONIN 5 MG TABLETS PO SCH (22:45)
[2023-02-03] MEDS: THIAMINE HCL 100 MG TABLET (FP) PO SCH ×2 (00:05→22:03)
[2023-02-03] MEDS: TOLNAFTATE 1% CREAM 15 GM TUBE TP SCH ×3 (00:05→22:03)
[2023-02-03] MEDS: METHOCARBAMOL 500 MG TABLET PO PRN (06:42)
[2023-02-03] MEDS: AMOX TR/POT CLAV 875MG/125MG TABLETS (FP) PO SCH ×2 (07:51→17:16)
[2023-02-03] MEDS: FUROSEMIDE 20 MG TABLET (FP) PO SCH (09:36)
[2023-02-03] MEDS: BACITRACIN 0.9 GM PACKET TP SCH ×2 (09:36→22:02)
[2023-02-03] MEDS: PRENATAL VITAMINS W/ FOLIC ACID TABLET (FP) PO SCH (09:37)
[2023-02-03] MEDS: METHYL SALICYLATE/MENTHOL OINT 30 GM TUBE TP SCH ×2 (09:40→22:03)
[2023-02-03] MEDS: IBUPROFEN 600 MG TABLET (FP) PO PRN (12:08)
[2023-02-03] MEDS: MELATONIN 5 MG TABLETS PO SCH (22:03)
[2023-02-04] MEDS: IBUPROFEN 600 MG TABLET (FP) PO PRN ×2 (07:59→17:17)
[2023-02-04] MEDS: AMOX TR/POT CLAV 875MG/125MG TABLETS (FP) PO SCH ×2 (07:59→17:17)
[2023-02-04] MEDS: PRENATAL VITAMINS W/ FOLIC ACID TABLET (FP) PO SCH (09:44)
[2023-02-04] MEDS: BACITRACIN 0.9 GM PACKET TP SCH ×2 (09:45→22:51)
[2023-02-04] MEDS: FUROSEMIDE 20 MG TABLET (FP) PO SCH (09:45)
[2023-02-04] MEDS: METHYL SALICYLATE/MENTHOL OINT 30 GM TUBE TP SCH ×2 (09:45→22:51)
[2023-02-04] MEDS: METHOCARBAMOL 500 MG TABLET PO PRN (09:47)
[2023-02-04] MEDS: TOLNAFTATE 1% CREAM 15 GM TUBE TP SCH ×2 (09:47→22:52)
[2023-02-04] MEDS: MELATONIN 5 MG TABLETS PO SCH (22:51)
[2023-02-04] MEDS: THIAMINE HCL 100 MG TABLET (FP) PO SCH (22:52)
[2023-02-05] MEDS: IBUPROFEN 600 MG TABLET (FP) PO PRN (06:49)
[2023-02-05] MEDS: AMOX TR/POT CLAV 875MG/125MG TABLETS (FP) PO SCH ×2 (07:49→17:21)
[2023-02-05] MEDS: PRENATAL VITAMINS W/ FOLIC ACID TABLET (FP) PO SCH (09:44)
[2023-02-05] MEDS: TOLNAFTATE 1% CREAM 15 GM TUBE TP SCH ×2 (09:45→22:18)
[2023-02-05] MEDS: BACITRACIN 0.9 GM PACKET TP SCH ×2 (09:45→22:17)
[2023-02-05] MEDS: METHYL SALICYLATE/MENTHOL OINT 30 GM TUBE TP SCH ×2 (09:45→22:17)
[2023-02-05] MEDS: FUROSEMIDE 20 MG TABLET (FP) PO SCH (09:45)
[2023-02-05] MEDS: METHOCARBAMOL 500 MG TABLET PO PRN (09:46)
[2023-02-05] MEDS: MELATONIN 5 MG TABLETS PO SCH (22:17)
[2023-02-05] MEDS: THIAMINE HCL 100 MG TABLET (FP) PO SCH (22:18)
[2023-02-06] MEDS: IBUPROFEN 600 MG TABLET (FP) PO PRN ×2 (07:07→17:42)
[2023-02-06] MEDS: AMOX TR/POT CLAV 875MG/125MG TABLETS (FP) PO SCH ×2 (07:08→17:41)
[2023-02-06] MEDS: METHYL SALICYLATE/MENTHOL OINT 30 GM TUBE TP SCH ×2 (09:32→21:51)
[2023-02-06] MEDS: BACITRACIN 0.9 GM PACKET TP SCH ×2 (09:32→21:51)
[2023-02-06] MEDS: FUROSEMIDE 20 MG TABLET (FP) PO SCH (09:32)
[2023-02-06] MEDS: TOLNAFTATE 1% CREAM 15 GM TUBE TP SCH ×2 (09:33→21:51)
[2023-02-06] MEDS: PRENATAL VITAMINS W/ FOLIC ACID TABLET (FP) PO SCH (09:33)
[2023-02-06] MEDS: THIAMINE HCL 100 MG TABLET (FP) PO SCH (21:51)
[2023-02-06] MEDS: MELATONIN 5 MG TABLETS PO SCH (21:51)
[2023-02-07] MEDS: IBUPROFEN 600 MG TABLET (FP) PO PRN (06:43)
[2023-02-07] MEDS: AMOX TR/POT CLAV 875MG/125MG TABLETS (FP) PO SCH (07:01)
[2023-02-07] MEDS: TOLNAFTATE 1% CREAM 15 GM TUBE TP SCH ×2 (10:06→23:15)
[2023-02-07] MEDS: BACITRACIN 0.9 GM PACKET TP SCH ×2 (10:06→23:15)
[2023-02-07] MEDS: PRENATAL VITAMINS W/ FOLIC ACID TABLET (FP) PO SCH (10:06)
[2023-02-07] MEDS: FUROSEMIDE 20 MG TABLET (FP) PO SCH (10:07)
[2023-02-07] MEDS: METHYL SALICYLATE/MENTHOL OINT 30 GM TUBE TP SCH ×2 (10:07→23:15)
[2023-02-07] MEDS: METHOCARBAMOL 500 MG TABLET PO PRN (10:07)
[2023-02-07] MEDS: MELATONIN 5 MG TABLETS PO SCH (23:15)
[2023-02-07] MEDS: THIAMINE HCL 100 MG TABLET (FP) PO SCH (23:15)
[2023-02-08] MEDS: BACITRACIN 0.9 GM PACKET TP SCH ×2 (09:42→23:20)
[2023-02-08] MEDS: FUROSEMIDE 20 MG TABLET (FP) PO SCH (09:42)
[2023-02-08] MEDS: PRENATAL VITAMINS W/ FOLIC ACID TABLET (FP) PO SCH (09:42)
[2023-02-08] MEDS: IBUPROFEN 600 MG TABLET (FP) PO PRN (09:43)
[2023-02-08] MEDS: METHOCARBAMOL 500 MG TABLET PO PRN (09:43)
[2023-02-08] MEDS: TOLNAFTATE 1% CREAM 15 GM TUBE TP SCH ×2 (09:46→23:21)
[2023-02-08] MEDS: METHYL SALICYLATE/MENTHOL OINT 30 GM TUBE TP SCH ×2 (09:46→23:21)
[2023-02-08] MEDS: MELATONIN 5 MG TABLETS PO SCH (23:21)
[2023-02-08] MEDS: THIAMINE HCL 100 MG TABLET (FP) PO SCH (23:21)
[2023-02-09] MEDS: PRENATAL VITAMINS W/ FOLIC ACID TABLET (FP) PO SCH (09:40)
[2023-02-09] MEDS: FUROSEMIDE 20 MG TABLET (FP) PO SCH (09:40)
[2023-02-09] MEDS: IBUPROFEN 600 MG TABLET (FP) PO PRN (09:40)
[2023-02-09] MEDS: METHOCARBAMOL 500 MG TABLET PO PRN (09:40)
[2023-02-09] MEDS: BACITRACIN 0.9 GM PACKET TP SCH ×2 (09:41→21:34)
[2023-02-09] MEDS: METHYL SALICYLATE/MENTHOL OINT 30 GM TUBE TP SCH ×2 (09:42→21:34)
[2023-02-09] MEDS: TOLNAFTATE 1% CREAM 15 GM TUBE TP SCH ×2 (09:43→21:35)
[2023-02-09] MEDS: THIAMINE HCL 100 MG TABLET (FP) PO SCH (21:35)
[2023-02-09] MEDS: MELATONIN 5 MG TABLETS PO SCH (21:35)
[2023-02-10] MEDS: PRENATAL VITAMINS W/ FOLIC ACID TABLET (FP) PO SCH (09:40)
[2023-02-10] MEDS: FUROSEMIDE 20 MG TABLET (FP) PO SCH (09:40)
[2023-02-10] MEDS: METHYL SALICYLATE/MENTHOL OINT 30 GM TUBE TP SCH ×2 (09:40→21:57)
[2023-02-10] MEDS: BACITRACIN 0.9 GM PACKET TP SCH ×2 (09:40→22:07)
[2023-02-10] MEDS: TOLNAFTATE 1% CREAM 15 GM TUBE TP SCH ×2 (09:41→21:57)
[2023-02-10] MEDS: IBUPROFEN 600 MG TABLET (FP) PO PRN ×2 (09:42→22:01)
[2023-02-10] MEDS ORDERED: COLLOIDAL OATMEAL 1 BAR EACH TP PRN (12:55)
[2023-02-10] MEDS ORDERED: TOLNAFTATE 1% CREAM 15 GM TUBE TP SCH (13:00)
[2023-02-10] MEDS ORDERED: hydrOXYzine PAMOATE 25 MG CAPSULE (FP) PO PRN (22:00)
[2023-02-10] MEDS: THIAMINE HCL 100 MG TABLET (FP) PO SCH (22:00)
[2023-02-10] MEDS: CLOTRIMAZOLE 1% CREAM TP SCH (22:00)
[2023-02-11] MEDS: BACITRACIN 0.9 GM PACKET TP SCH ×2 (09:34→22:26)
[2023-02-11] MEDS: PRENATAL VITAMINS W/ FOLIC ACID TABLET (FP) PO SCH (09:34)
[2023-02-11] MEDS: FUROSEMIDE 20 MG TABLET (FP) PO SCH (09:34)
[2023-02-11] MEDS: CLOTRIMAZOLE 1% CREAM TP SCH ×2 (09:35→22:26)
[2023-02-11] MEDS: METHYL SALICYLATE/MENTHOL OINT 30 GM TUBE TP SCH ×2 (09:36→22:26)
[2023-02-11] MEDS: TOLNAFTATE 1% CREAM 15 GM TUBE TP SCH (09:36)
[2023-02-11] MEDS: COLLOIDAL OATMEAL 1 BAR EACH TP PRN (09:37)
[2023-02-11] MEDS: METHOCARBAMOL 500 MG TABLET PO PRN (09:37)
[2023-02-11] MEDS: THIAMINE HCL 100 MG TABLET (FP) PO SCH (22:27)
[2023-02-12] MEDS: BACITRACIN 0.9 GM PACKET TP SCH ×2 (09:43→21:10)
[2023-02-12] MEDS: PRENATAL VITAMINS W/ FOLIC ACID TABLET (FP) PO SCH (09:43)
[2023-02-12] MEDS: FUROSEMIDE 20 MG TABLET (FP) PO SCH (09:43)
[2023-02-12] MEDS: CLOTRIMAZOLE 1% CREAM TP SCH ×2 (09:44→21:10)
[2023-02-12] MEDS: METHYL SALICYLATE/MENTHOL OINT 30 GM TUBE TP SCH ×2 (09:44→21:10)
[2023-02-12] MEDS: METHOCARBAMOL 500 MG TABLET PO PRN (09:46)
[2023-02-12] MEDS: IBUPROFEN 600 MG TABLET (FP) PO PRN ×2 (09:46→21:09)
[2023-02-12] MEDS: THIAMINE HCL 100 MG TABLET (FP) PO SCH (21:07)
[2023-02-13] MEDS: CLOTRIMAZOLE 1% CREAM TP SCH ×2 (09:41→22:39)
[2023-02-13] MEDS: FUROSEMIDE 20 MG TABLET (FP) PO SCH (09:41)
[2023-02-13] MEDS: BACITRACIN 0.9 GM PACKET TP SCH ×2 (09:41→22:39)
[2023-02-13] MEDS: PRENATAL VITAMINS W/ FOLIC ACID TABLET (FP) PO SCH (09:41)
[2023-02-13] MEDS: METHYL SALICYLATE/MENTHOL OINT 30 GM TUBE TP SCH ×2 (09:41→22:39)
[2023-02-13] MEDS: METHOCARBAMOL 500 MG TABLET PO PRN (09:43)
[2023-02-13] MEDS: IBUPROFEN 600 MG TABLET (FP) PO PRN (09:43)
[2023-02-13] MEDS: THIAMINE HCL 100 MG TABLET (FP) PO SCH (22:39)
[2023-02-14] MEDS: IBUPROFEN 600 MG TABLET (FP) PO PRN (06:48)
[2023-02-14 06:53] VITALS: BP 149/86; PULSE 100; TEMP 97.9
[2023-02-14] MEDS: PRENATAL VITAMINS W/ FOLIC ACID TABLET (FP) PO SCH (09:44)
[2023-02-14] MEDS: FUROSEMIDE 20 MG TABLET (FP) PO SCH (09:44)
[2023-02-14] MEDS: BACITRACIN 0.9 GM PACKET TP SCH (09:45)
[2023-02-14] MEDS: CLOTRIMAZOLE 1% CREAM TP SCH (09:45)
[2023-02-14] MEDS: METHYL SALICYLATE/MENTHOL OINT 30 GM TUBE TP SCH (09:45)
== END 2023-02-14 11:20 | disposition home or self-care (01) | DRG 772 ==
LOC: YASAS 15:40 → Y5N 01-25 02:42
PROVIDERS: ADMIT Allergy & Immunology; ATTEND Psychiatry & Neurology Pain Medicine
PROC: HZ42ZZZ Group Counseling for Substance Abuse Treatment, Cognitive-Behavioral (ICD-10-PCS; principal; 2023-01-25)
DX: F10.20 Alcohol dependence, uncomplicated (principal); F14.20 Cocaine dependence, uncomplicated; F17.210 Nicotine dependence, cigarettes, uncomplicated; F19.282 Other psychoactive substance dependence with psychoactive substance-induced sleep disorder; B35.6 Tinea cruris; L03.116 Cellulitis of left lower limb; M16.12 Unilateral primary osteoarthritis, left hip; S80.812A Abrasion, left lower leg, initial encounter; X58.XXXA Exposure to other specified factors, initial encounter; Y93.9 Activity, unspecified; Y92.239 Unspecified place in hospital as the place of occurrence of the external cause; Z99.89 Dependence on other enabling machines and devices
CPT/HCPCS: C9803-CS; U0003; U0005

== ENCOUNTER 2023-06-10 15:57 | Inpatient (IN) | payer OTHER ==
[2023-06-10] MEDS ORDERED: ACETAMINOPHEN 650 MG/20.3 ML ORAL SOLUTION (CUPS) PO ONE (17:03)
[2023-06-10] MEDS ORDERED: VANCOMYCIN 1,000 MG in DEXTROSE 5%-WATER - 250 ML IVPB ONE (17:15)
[2023-06-10] MEDS ORDERED: CEFEPIME HCL 1 GM VIAL (RESTRICTED TO ID) IVPB ONE (17:16)
[2023-06-10] MEDS ORDERED: ACETAMINOPHEN 325 MG TABLET (FP) ONE (17:27)
[2023-06-10] MEDS ORDERED: CEFEPIME 1 GM/100 ML BAG IVPB ONE (17:27)
[2023-06-10] MEDS ORDERED: chlordiazePOXIDE HCL 25 MG CAPSULE PO ONE (17:56)
[2023-06-10 18:30] LABS: BASO % 0.4 % (0-2.0); EOS % 2.8 % (0-4.5); HEMATOCRIT 35.1 % (35.4-49); HEMOGLOBIN 11.8 GM/dL (11.7-16.9); LYMPH % 25.1 % (8-40); MCH 30.9 pg (25.7-33.7); MCHC 33.7 g/dl (32.0-35.9); MEAN CELL VOLUME 91.9 fl (80-96); MEAN PLT VOLUME 7.9 fl (7.5-11.1); MONO % 7.4 % (3.8-10.2); NEUT % 64.3 % (42.8-82.8); PLATELET COUNT 256 10^3/uL (134-434); RBC 3.81 M/mm3 (4.00-5.60); RDW 15.8 % (11.9-15.9); WHITE BLOOD COUNT 4.7 K/mm3 (4.0-10.0)
[2023-06-10 18:57] LABS: POTASSIUM 3.4 mmol/L (3.5-5.1)
[2023-06-10 18:59] LABS: CALCIUM 8.1 mg/dL (8.5-10.1)
[2023-06-10 19:00] LABS: ALBUMIN 3.1 g/dl (3.4-5.0); BLOOD UREA NITROGEN 3.8 mg/dL (7-18)
[2023-06-10 19:03] LABS: CREATININE 0.6 mg/dL (0.55-1.3)
[2023-06-10 19:05] LABS: BILIRUBIN,TOTAL 0.3 mg/dL (0.2-1); TOT PROT 7.3 g/dl (6.4-8.2)
[2023-06-10] MEDS ORDERED: chlordiazePOXIDE HCL 25 MG CAPSULE ONE (19:23)
[2023-06-10] MEDS ORDERED: VANCOMYCIN/WATER FOR INJ (PEG) 1,000 MG/200 ML BAG IVPB ONE (19:47)
[2023-06-10 20:17] LABS: URINE APPEARANCE CLEAR; URINE BILIRUBIN NEGATIVE (NEGATIVE); URINE COLOR YELLOW; URINE GLUCOSE (UA) NEGATIVE (NEGATIVE); URINE KETONE NEGATIVE (NEGATIVE); URINE LEUK ESTERASE NEGATIVE (NEGATIVE); URINE NITRITE NEGATIVE (NEGATIVE); URINE PROTEIN NEGATIVE (NEGATIVE)
[2023-06-10] MEDS ORDERED: LORazepam 2 MG TABLET PO SCH (23:00)
[2023-06-10] MEDS: ENOXAPARIN NA (PORCINE) 40 MG/0.4 ML DISP.SYRIN SQ SCH (23:32)
[2023-06-10] MEDS: NICOTINE 14 MG/24 HOURS TOPICAL PATCH TD SCH (23:33)
[2023-06-10] MEDS ORDERED: LORazepam 2 MG TABLET PO ONE (23:49)
[2023-06-10] MEDS ORDERED: LORazepam 1 MG TABLET PO PRN (23:49)
[2023-06-10] MEDS ORDERED: LORazepam 1 MG TABLET PO ONE (23:49)
[2023-06-10] MEDS ORDERED: LORazepam 1 MG TABLET ONE (23:53)
[2023-06-11] MEDS ORDERED: LORazepam 1 MG TABLET PO PRN (00:03)
[2023-06-11] MEDS ORDERED: PIPERACILLIN/TAZOB 3.375 GM 3.375 GM/50 ML BAG IVPB ONE (00:18)
[2023-06-11] MEDS: PIPERACILLIN/TAZOB 3.375 GM 3.375 GM in DEXTROSE 5%-WATER - 50 ML IVPB SCH ×2 (00:26→02:47)
[2023-06-11] MEDS ORDERED: ACETAMINOPHEN 325 MG TABLET (FP) PO PRN (00:46)
[2023-06-11] MEDS ORDERED: ACETAMINOPHEN 325 MG TABLET (FP) ONE (00:50)
[2023-06-11] MEDS ORDERED: IBUPROFEN 400 MG TABLET (FP) PO PRN (01:12)
[2023-06-11] MEDS ORDERED: LORazepam 1 MG TABLET ONE ×3 (04:51→11:14)
[2023-06-11] MEDS: LORazepam 1 MG TABLET PO SCH ×4 (04:54→22:42)
[2023-06-11] MEDS ORDERED: VANCOMYCIN PREMIX 1.5 GM 1,500 MG/300 ML BAG IVPB SCH (08:00)
[2023-06-11] MEDS ORDERED: CEFEPIME 1 GM in DEXTROSE 5%-WATER 100 ML IVPB SCH (10:00)
[2023-06-11] MEDS ORDERED: CEFEPIME 1 GM/100 ML BAG IVPB ONE (11:06)
[2023-06-11] MEDS: ENOXAPARIN NA (PORCINE) 40 MG/0.4 ML DISP.SYRIN SQ SCH (11:21)
[2023-06-11] MEDS: THIAMINE HCL 100 MG TABLET (FP) PO SCH (11:21)
[2023-06-11] MEDS: NICOTINE 14 MG/24 HOURS TOPICAL PATCH TD SCH (11:21)
[2023-06-11] MEDS: FOLIC ACID 1 MG TABLET (FP) PO SCH (11:22)
[2023-06-11] MEDS: LACTATED RINGERS SOLUTION 1,000 ML/1,000 ML INFUS.BAG IV SCH (15:37)
[2023-06-11] MEDS: PIPERACILLIN/TAZOB 4.5 GM 4.5 GM in DEXTROSE 5%-WATER 100 ML IVPB SCH (17:35)
[2023-06-12] MEDS: PIPERACILLIN/TAZOB 4.5 GM 4.5 GM in DEXTROSE 5%-WATER 100 ML IVPB SCH ×3 (02:17→17:18)
[2023-06-12] MEDS: LORazepam 1 MG TABLET PO SCH ×4 (05:33→22:06)
[2023-06-12] MEDS ORDERED: VANCOMYCIN PREMIX 1.5 GM 1,500 MG/300 ML BAG IVPB SCH (08:00)
[2023-06-12] MEDS ORDERED: CEFEPIME 1 GM in DEXTROSE 5%-WATER 100 ML IVPB SCH (10:00)
[2023-06-12] MEDS: THIAMINE HCL 100 MG TABLET (FP) PO SCH (11:30)
[2023-06-12] MEDS: ENOXAPARIN NA (PORCINE) 40 MG/0.4 ML DISP.SYRIN SQ SCH (11:30)
[2023-06-12] MEDS: FOLIC ACID 1 MG TABLET (FP) PO SCH (11:31)
[2023-06-12] MEDS: NICOTINE 14 MG/24 HOURS TOPICAL PATCH TD SCH (11:31)
[2023-06-12 12:48] VITALS: BMI 34.0
[2023-06-12] MEDS: LACTATED RINGERS SOLUTION 1,000 ML/1,000 ML INFUS.BAG IV SCH (17:26)
[2023-06-13] MEDS ORDERED: LORazepam 0.5 MG TABLET PO PRN
[2023-06-13] MEDS: MELATONIN 5 MG TABLETS PO ONE ×2 (00:43→00:45)
[2023-06-13] MEDS: PIPERACILLIN/TAZOB 4.5 GM 4.5 GM in DEXTROSE 5%-WATER 100 ML IVPB SCH ×3 (03:08→18:45)
[2023-06-13] MEDS: LORazepam 0.5 MG TABLET PO SCH ×4 (06:17→21:59)
[2023-06-13] MEDS: NICOTINE 14 MG/24 HOURS TOPICAL PATCH TD SCH (10:41)
[2023-06-13] MEDS: THIAMINE HCL 100 MG TABLET (FP) PO SCH (10:41)
[2023-06-13] MEDS: ENOXAPARIN NA (PORCINE) 40 MG/0.4 ML DISP.SYRIN SQ SCH (10:41)
[2023-06-13] MEDS: FOLIC ACID 1 MG TABLET (FP) PO SCH (10:41)
[2023-06-13] MEDS ORDERED: VANCOMYCIN/WATER 1250 MG 1,250 MG/250 ML BAG IVPB SCH (13:30)
[2023-06-14] MEDS: PIPERACILLIN/TAZOB 4.5 GM 4.5 GM in DEXTROSE 5%-WATER 100 ML IVPB SCH ×3 (01:16→17:47)
[2023-06-14] MEDS ORDERED: LORazepam 0.5 MG TABLET PO ONE (05:00)
[2023-06-14] MEDS: FOLIC ACID 1 MG TABLET (FP) PO SCH (10:09)
[2023-06-14] MEDS: THIAMINE HCL 100 MG TABLET (FP) PO SCH (10:10)
[2023-06-14] MEDS: ENOXAPARIN NA (PORCINE) 40 MG/0.4 ML DISP.SYRIN SQ SCH (10:11)
[2023-06-14] MEDS: NICOTINE 14 MG/24 HOURS TOPICAL PATCH TD SCH ×2 (10:12→10:21)
[2023-06-14] MEDS ORDERED: IBUPROFEN 400 MG TABLET (FP) PO PRN (10:24)
[2023-06-14] MEDS: FAMOTIDINE 20 MG TABLET PO SCH (11:28)
[2023-06-15] MEDS: PIPERACILLIN/TAZOB 4.5 GM 4.5 GM in DEXTROSE 5%-WATER 100 ML IVPB SCH ×3 (02:25→18:53)
[2023-06-15] MEDS: IBUPROFEN 400 MG TABLET (FP) PO PRN (16:38)
[2023-06-15] MEDS: FAMOTIDINE 20 MG TABLET PO SCH (16:42)
[2023-06-15] MEDS: ENOXAPARIN NA (PORCINE) 40 MG/0.4 ML DISP.SYRIN SQ SCH (16:42)
[2023-06-15] MEDS: THIAMINE HCL 100 MG TABLET (FP) PO SCH (16:42)
[2023-06-15] MEDS: NICOTINE 14 MG/24 HOURS TOPICAL PATCH TD SCH (16:42)
[2023-06-15] MEDS: FOLIC ACID 1 MG TABLET (FP) PO SCH (16:43)
[2023-06-16] MEDS: PIPERACILLIN/TAZOB 4.5 GM 4.5 GM in DEXTROSE 5%-WATER 100 ML IVPB SCH ×3 (01:41→17:37)
[2023-06-16] MEDS: IBUPROFEN 400 MG TABLET (FP) PO PRN ×2 (02:51→11:15)
[2023-06-16] MEDS: FAMOTIDINE 20 MG TABLET PO SCH (11:09)
[2023-06-16] MEDS: NICOTINE 14 MG/24 HOURS TOPICAL PATCH TD SCH (11:10)
[2023-06-16] MEDS: ENOXAPARIN NA (PORCINE) 40 MG/0.4 ML DISP.SYRIN SQ SCH (11:10)
[2023-06-16] MEDS: FOLIC ACID 1 MG TABLET (FP) PO SCH (11:10)
[2023-06-16] MEDS: THIAMINE HCL 100 MG TABLET (FP) PO SCH (11:10)
[2023-06-17] MEDS ORDERED: PIPERACILLIN/TAZOBACTAM 4.5 GM VIAL IVPB ONE (02:53)
[2023-06-17] MEDS: PIPERACILLIN/TAZOB 4.5 GM 4.5 GM in DEXTROSE 5%-WATER 100 ML IVPB SCH ×3 (02:57→17:21)
[2023-06-17] MEDS: NICOTINE 14 MG/24 HOURS TOPICAL PATCH TD SCH ×2 (10:11→11:00)
[2023-06-17] MEDS: FOLIC ACID 1 MG TABLET (FP) PO SCH (11:00)
[2023-06-17] MEDS: IBUPROFEN 400 MG TABLET (FP) PO PRN ×2 (11:00→22:01)
[2023-06-17] MEDS: FAMOTIDINE 20 MG TABLET PO SCH (11:00)
[2023-06-17] MEDS: THIAMINE HCL 100 MG TABLET (FP) PO SCH (11:00)
[2023-06-17] MEDS: ENOXAPARIN NA (PORCINE) 40 MG/0.4 ML DISP.SYRIN SQ SCH (11:02)
[2023-06-17] MEDS: POTASSIUM CHLORIDE TABS 20 MEQ TABLET.ER (FP) PO ONE ×2 (17:20→17:25)
[2023-06-18] MEDS: PIPERACILLIN/TAZOB 4.5 GM 4.5 GM in DEXTROSE 5%-WATER 100 ML IVPB SCH (02:01)
[2023-06-18] MEDS: FOLIC ACID 1 MG TABLET (FP) PO SCH (10:06)
[2023-06-18] MEDS: THIAMINE HCL 100 MG TABLET (FP) PO SCH (10:06)
[2023-06-18] MEDS: FAMOTIDINE 20 MG TABLET PO SCH (10:06)
[2023-06-18] MEDS: NICOTINE 14 MG/24 HOURS TOPICAL PATCH TD SCH (10:07)
[2023-06-18] MEDS: IBUPROFEN 400 MG TABLET (FP) PO PRN (10:09)
[2023-06-19] MEDS: FAMOTIDINE 20 MG TABLET PO SCH (09:42)
[2023-06-19] MEDS: FOLIC ACID 1 MG TABLET (FP) PO SCH (09:42)
[2023-06-19] MEDS: THIAMINE HCL 100 MG TABLET (FP) PO SCH (09:42)
[2023-06-19] MEDS: NICOTINE 14 MG/24 HOURS TOPICAL PATCH TD SCH (09:42)
[2023-06-19] MEDS: IBUPROFEN 400 MG TABLET (FP) PO PRN (09:43)
[2023-06-19 11:36] VITALS: PULSE 87; RESP 20; TEMP 98.5
[2023-06-19 12:03] VITALS: BP 169/99
== END 2023-06-19 11:21 | disposition other institution (70) | DRG 383 ==
LOC: JER 15:57 → JERBED 19:40 → J5S 06-11 14:35
PROVIDERS: ADMIT Internal Medicine; ATTEND Psychiatry & Neurology Pain Medicine
PROC: HZ2ZZZZ Detoxification Services for Substance Abuse Treatment (ICD-10-PCS; principal; 2023-06-10)
DX: L03.116 Cellulitis of left lower limb (principal); R50.9 Fever, unspecified; F10.239 Alcohol dependence with withdrawal, unspecified; F19.10 Other psychoactive substance abuse, uncomplicated; F17.210 Nicotine dependence, cigarettes, uncomplicated; S81.802A Unspecified open wound, left lower leg, initial encounter; B95.2 Enterococcus as the cause of diseases classified elsewhere; B96.1 Klebsiella pneumoniae [K. pneumoniae] as the cause of diseases classified elsewhere; B96.5 Pseudomonas (aeruginosa) (mallei) (pseudomallei) as the cause of diseases classified elsewhere; B95.62 Methicillin resistant Staphylococcus aureus infection as the cause of diseases classified elsewhere
CPT/HCPCS: 36415; 71045-TC-FY; 73590-TC-LT-FY; 73610-TC-LT-FY; 73630-TC-LT; 73701-TC-RT; 80053; 81003; 85025; 87040; 87070; 87086; 87186; 87205; 93005; 93010; 93970-TC; 97116-GP; 97162-GP; 99285-25; Q9967

== ENCOUNTER 2023-06-19 12:44 | Inpatient (IN) | payer OTHER ==
[2023-06-19 14:59] VITALS: BMI 31.7
[2023-06-19] MEDS ORDERED: POLYETHYLENE GLYCOL (HEALTHYLAX) 3350 17 GM PACKET PO PRN (15:13)
[2023-06-19] MEDS ORDERED: ACETAMINOPHEN 325 MG TABLET (FP) PO PRN (15:13)
[2023-06-19] MEDS ORDERED: MAGNESIUM HYDROX 2400MG/30ML ORAL SUSPENSION 30 ML CUP PO PRN (15:13)
[2023-06-19] MEDS ORDERED: BENZOCAINE/MENTHOL (CHLORASEPTIC ) LOZENGE MM PRN (15:13)
[2023-06-19] MEDS ORDERED: P-EPHED 60MG/TRIPROLIDI 2.5MG TABLET PO PRN (15:13)
[2023-06-19] MEDS ORDERED: AMMONIUM LACTATE 12% LOTION 225 GM BOTTLE TP PRN (15:13)
[2023-06-19] MEDS ORDERED: MAG HYDROX/AL HYDROX/SIMETH 30 ML UNIT-DOSE CUP PO PRN (15:13)
[2023-06-19] MEDS ORDERED: IBUPROFEN 400 MG TABLET (FP) PO PRN (15:13)
[2023-06-19] MEDS ORDERED: LOPERAMIDE HCL 2 MG CAPSULE PO PRN (15:13)
[2023-06-19] MEDS ORDERED: guaiFENesin 600 MG TABLET.ER (FP) PO PRN (15:13)
[2023-06-19] MEDS ORDERED: COLLOIDAL OATMEAL 1 BAR EACH TP PRN (15:13)
[2023-06-19] MEDS ORDERED: BENZONATATE 200 MG CAPSULE PO PRN (15:13)
[2023-06-19] MEDS ORDERED: hydrOXYzine PAMOATE 25 MG CAPSULE (FP) PO PRN (15:13)
[2023-06-19] MEDS: IBUPROFEN 600 MG TABLET (FP) PO PRN (21:12)
[2023-06-19] MEDS ORDERED: MELATONIN 5 MG TABLETS PO SCH (22:00)
[2023-06-20] MEDS: PRENATAL VITAMINS W/ FOLIC ACID TABLET (FP) PO SCH (09:40)
[2023-06-20] MEDS: THIAMINE HCL 100 MG TABLET (FP) PO SCH (09:40)
[2023-06-20] MEDS: FOLIC ACID 1 MG TABLET (FP) PO SCH (09:40)
[2023-06-20] MEDS: IBUPROFEN 600 MG TABLET (FP) PO PRN ×2 (09:41→14:46)
[2023-06-20] MEDS: NICOTINE 14 MG/24 HOURS TOPICAL PATCH TD SCH (09:44)
[2023-06-20] MEDS ORDERED: FUROSEMIDE 20 MG TABLET (FP) PO SCH (13:15)
[2023-06-20] MEDS: FUROSEMIDE 20 MG TABLET (FP) PO SCH (14:47)
[2023-06-20] MEDS ORDERED: SUVOREXANT 10 MG TABLET PO PRN (22:00)
[2023-06-21] MEDS: IBUPROFEN 600 MG TABLET (FP) PO PRN (06:56)
[2023-06-21] MEDS: PRENATAL VITAMINS W/ FOLIC ACID TABLET (FP) PO SCH (10:29)
[2023-06-21] MEDS: FOLIC ACID 1 MG TABLET (FP) PO SCH (10:29)
[2023-06-21] MEDS: THIAMINE HCL 100 MG TABLET (FP) PO SCH (10:29)
[2023-06-21] MEDS: NICOTINE 14 MG/24 HOURS TOPICAL PATCH TD SCH (10:29)
[2023-06-21] MEDS: FUROSEMIDE 20 MG TABLET (FP) PO SCH (10:29)
[2023-06-22] MEDS: THIAMINE HCL 100 MG TABLET (FP) PO SCH (10:21)
[2023-06-22] MEDS: FOLIC ACID 1 MG TABLET (FP) PO SCH (10:21)
[2023-06-22] MEDS: FUROSEMIDE 20 MG TABLET (FP) PO SCH (10:21)
[2023-06-22] MEDS: PRENATAL VITAMINS W/ FOLIC ACID TABLET (FP) PO SCH (10:21)
[2023-06-22] MEDS: NICOTINE 14 MG/24 HOURS TOPICAL PATCH TD SCH (10:21)
[2023-06-22] MEDS: IBUPROFEN 600 MG TABLET (FP) PO PRN ×2 (10:22→21:22)
[2023-06-22] MEDS ORDERED: SUVOREXANT 10 MG TABLET PO PRN (22:00)
[2023-06-23] MEDS: PRENATAL VITAMINS W/ FOLIC ACID TABLET (FP) PO SCH (09:57)
[2023-06-23] MEDS: FOLIC ACID 1 MG TABLET (FP) PO SCH (09:57)
[2023-06-23] MEDS: FUROSEMIDE 20 MG TABLET (FP) PO SCH (09:57)
[2023-06-23] MEDS: THIAMINE HCL 100 MG TABLET (FP) PO SCH (09:58)
[2023-06-23] MEDS: IBUPROFEN 600 MG TABLET (FP) PO PRN ×2 (09:58→21:35)
[2023-06-23] MEDS: NICOTINE 14 MG/24 HOURS TOPICAL PATCH TD SCH (09:58)
[2023-06-23] MEDS ORDERED: FUROSEMIDE 20 MG TABLET (FP) PO SCH (16:08)
[2023-06-24] MEDS: FOLIC ACID 1 MG TABLET (FP) PO SCH (09:24)
[2023-06-24] MEDS: THIAMINE HCL 100 MG TABLET (FP) PO SCH (09:24)
[2023-06-24] MEDS: FUROSEMIDE 20 MG TABLET (FP) PO SCH (09:26)
[2023-06-24] MEDS: PRENATAL VITAMINS W/ FOLIC ACID TABLET (FP) PO SCH (09:27)
[2023-06-24] MEDS: IBUPROFEN 600 MG TABLET (FP) PO PRN ×2 (09:31→21:29)
[2023-06-24] MEDS: NICOTINE 14 MG/24 HOURS TOPICAL PATCH TD SCH (10:08)
[2023-06-24] MEDS ORDERED: SUVOREXANT 10 MG TABLET PO PRN (22:00)
[2023-06-25] MEDS: IBUPROFEN 600 MG TABLET (FP) PO PRN ×2 (09:42→22:13)
[2023-06-25] MEDS: FOLIC ACID 1 MG TABLET (FP) PO SCH (09:43)
[2023-06-25] MEDS: PRENATAL VITAMINS W/ FOLIC ACID TABLET (FP) PO SCH (09:43)
[2023-06-25] MEDS: THIAMINE HCL 100 MG TABLET (FP) PO SCH (09:43)
[2023-06-25] MEDS: NICOTINE 14 MG/24 HOURS TOPICAL PATCH TD SCH (09:43)
[2023-06-25] MEDS: FUROSEMIDE 20 MG TABLET (FP) PO SCH (09:43)
[2023-06-25] MEDS ORDERED: SUVOREXANT 10 MG TABLET PO PRN (22:00)
[2023-06-26] MEDS: THIAMINE HCL 100 MG TABLET (FP) PO SCH (09:51)
[2023-06-26] MEDS: IBUPROFEN 600 MG TABLET (FP) PO PRN ×2 (09:51→21:17)
[2023-06-26] MEDS: PRENATAL VITAMINS W/ FOLIC ACID TABLET (FP) PO SCH (09:51)
[2023-06-26] MEDS: FOLIC ACID 1 MG TABLET (FP) PO SCH (09:51)
[2023-06-26] MEDS: FUROSEMIDE 20 MG TABLET (FP) PO SCH (10:56)
[2023-06-27] MEDS: PRENATAL VITAMINS W/ FOLIC ACID TABLET (FP) PO SCH (09:19)
[2023-06-27] MEDS: FUROSEMIDE 40 MG TABLET (FP) PO SCH (09:20)
[2023-06-27] MEDS: IBUPROFEN 600 MG TABLET (FP) PO PRN ×2 (09:20→21:25)
[2023-06-27] MEDS: FOLIC ACID 1 MG TABLET (FP) PO SCH (09:20)
[2023-06-27] MEDS: THIAMINE HCL 100 MG TABLET (FP) PO SCH (09:20)
[2023-06-27] MEDS ORDERED: SUVOREXANT 10 MG TABLET PO PRN (22:00)
[2023-06-28] MEDS: IBUPROFEN 600 MG TABLET (FP) PO PRN ×2 (06:33→21:17)
[2023-06-28] MEDS: PRENATAL VITAMINS W/ FOLIC ACID TABLET (FP) PO SCH (09:03)
[2023-06-28] MEDS: THIAMINE HCL 100 MG TABLET (FP) PO SCH (09:03)
[2023-06-28] MEDS: FOLIC ACID 1 MG TABLET (FP) PO SCH (09:03)
[2023-06-28] MEDS: FUROSEMIDE 40 MG TABLET (FP) PO SCH (09:03)
[2023-06-29] MEDS: PRENATAL VITAMINS W/ FOLIC ACID TABLET (FP) PO SCH (10:03)
[2023-06-29] MEDS: FOLIC ACID 1 MG TABLET (FP) PO SCH (10:03)
[2023-06-29] MEDS: FUROSEMIDE 40 MG TABLET (FP) PO SCH (10:03)
[2023-06-29] MEDS: THIAMINE HCL 100 MG TABLET (FP) PO SCH (10:03)
[2023-06-29] MEDS: IBUPROFEN 600 MG TABLET (FP) PO PRN ×2 (10:04→21:15)
[2023-06-30] MEDS: PRENATAL VITAMINS W/ FOLIC ACID TABLET (FP) PO SCH (10:05)
[2023-06-30] MEDS: THIAMINE HCL 100 MG TABLET (FP) PO SCH (10:05)
[2023-06-30] MEDS: FOLIC ACID 1 MG TABLET (FP) PO SCH (10:05)
[2023-06-30] MEDS: FUROSEMIDE 40 MG TABLET (FP) PO SCH (10:05)
[2023-06-30] MEDS: IBUPROFEN 600 MG TABLET (FP) PO PRN (21:28)
[2023-06-30] MEDS ORDERED: SUVOREXANT 10 MG TABLET PO PRN (22:00)
[2023-07-01] MEDS: PRENATAL VITAMINS W/ FOLIC ACID TABLET (FP) PO SCH (09:59)
[2023-07-01] MEDS: THIAMINE HCL 100 MG TABLET (FP) PO SCH (10:00)
[2023-07-01] MEDS: IBUPROFEN 600 MG TABLET (FP) PO PRN ×2 (10:00→21:27)
[2023-07-01] MEDS: FUROSEMIDE 40 MG TABLET (FP) PO SCH (10:00)
[2023-07-01] MEDS: FOLIC ACID 1 MG TABLET (FP) PO SCH (10:00)
[2023-07-02] MEDS: THIAMINE HCL 100 MG TABLET (FP) PO SCH (10:01)
[2023-07-02] MEDS: FUROSEMIDE 40 MG TABLET (FP) PO SCH (10:01)
[2023-07-02] MEDS: PRENATAL VITAMINS W/ FOLIC ACID TABLET (FP) PO SCH (10:01)
[2023-07-02] MEDS: FOLIC ACID 1 MG TABLET (FP) PO SCH (10:01)
[2023-07-02] MEDS: IBUPROFEN 600 MG TABLET (FP) PO PRN ×2 (10:03→21:32)
[2023-07-03] MEDS: FOLIC ACID 1 MG TABLET (FP) PO SCH (10:37)
[2023-07-03] MEDS: THIAMINE HCL 100 MG TABLET (FP) PO SCH (10:37)
[2023-07-03] MEDS: FUROSEMIDE 40 MG TABLET (FP) PO SCH (10:37)
[2023-07-03] MEDS: IBUPROFEN 600 MG TABLET (FP) PO PRN ×2 (10:38→21:23)
[2023-07-03] MEDS: PRENATAL VITAMINS W/ FOLIC ACID TABLET (FP) PO SCH (10:41)
[2023-07-03] MEDS: TOLNAFTATE 1% CREAM 15 GM TUBE TP SCH ×2 (13:35→22:24)
[2023-07-03] MEDS ORDERED: hydrOXYzine PAMOATE 25 MG CAPSULE (FP) PO PRN (22:00)
[2023-07-03] MEDS ORDERED: SUVOREXANT 10 MG TABLET PO PRN (22:00)
[2023-07-04] MEDS: THIAMINE HCL 100 MG TABLET (FP) PO SCH (09:48)
[2023-07-04] MEDS: IBUPROFEN 600 MG TABLET (FP) PO PRN ×2 (09:48→21:13)
[2023-07-04] MEDS: FOLIC ACID 1 MG TABLET (FP) PO SCH (09:48)
[2023-07-04] MEDS: FUROSEMIDE 40 MG TABLET (FP) PO SCH (09:48)
[2023-07-04] MEDS: METHYL SALICYLATE/MENTHOL OINT 30 GM TUBE TP PRN (09:49)
[2023-07-04] MEDS: PRENATAL VITAMINS W/ FOLIC ACID TABLET (FP) PO SCH (09:50)
[2023-07-04] MEDS: TOLNAFTATE 1% CREAM 15 GM TUBE TP SCH ×2 (09:50→21:14)
[2023-07-05 06:51] VITALS: TEMP 97.1
[2023-07-05 08:59] VITALS: BP 125/75; PULSE 92; RESP 16
[2023-07-05] MEDS: PRENATAL VITAMINS W/ FOLIC ACID TABLET (FP) PO SCH (09:55)
[2023-07-05] MEDS: IBUPROFEN 600 MG TABLET (FP) PO PRN (09:56)
[2023-07-05] MEDS: FUROSEMIDE 40 MG TABLET (FP) PO SCH (09:56)
[2023-07-05] MEDS: THIAMINE HCL 100 MG TABLET (FP) PO SCH (09:56)
[2023-07-05] MEDS: FOLIC ACID 1 MG TABLET (FP) PO SCH (09:56)
[2023-07-05] MEDS: METHYL SALICYLATE/MENTHOL OINT 30 GM TUBE TP PRN (09:57)
[2023-07-05] MEDS: TOLNAFTATE 1% CREAM 15 GM TUBE TP SCH (09:58)
== END 2023-07-05 16:15 | disposition home or self-care (01) | DRG 772 ==
LOC: YASAS 12:44 → Y3W 16:30
PROVIDERS: ADMIT Allergy & Immunology; ATTEND Psychiatry & Neurology Pain Medicine
PROC: HZ42ZZZ Group Counseling for Substance Abuse Treatment, Cognitive-Behavioral (ICD-10-PCS; principal; 2023-06-19)
DX: F10.20 Alcohol dependence, uncomplicated (principal); F14.20 Cocaine dependence, uncomplicated; F17.210 Nicotine dependence, cigarettes, uncomplicated; G47.00 Insomnia, unspecified; I10 Essential (primary) hypertension; L97.928 Non-pressure chronic ulcer of unspecified part of left lower leg with other specified severity; L97.918 Non-pressure chronic ulcer of unspecified part of right lower leg with other specified severity; R60.0 Localized edema; B35.3 Tinea pedis; M25.552 Pain in left hip; Z99.89 Dependence on other enabling machines and devices
CPT/HCPCS: 87635

== ENCOUNTER 2023-11-21 13:44 | Inpatient (IN) | payer OTHER ==
[2023-11-21 14:56] LABS: BASO % 0.5 % (0-2.0); HEMOGLOBIN 10.1 GM/dL (11.7-16.9); LYMPH % 18.3 % (8-40); MCH 30.5 pg (25.7-33.7); MCHC 33.6 g/dl (32.0-35.9); MEAN CELL VOLUME 90.8 fl (80-96); MEAN PLT VOLUME 7.5 fl (7.5-11.1); MONO % 9.1 % (3.8-10.2); NEUT % 69.1 % (42.8-82.8); PLATELET COUNT 247 10^3/uL (134-434); RDW 14.9 % (11.9-15.9); WHITE BLOOD COUNT 4.3 K/mm3 (4.0-10.0)
[2023-11-21 15:02] LABS: INR 1.26 (0.83-1.09); PROTHROMBIN TIME (PATIENT) 14.6 SEC (9.7-13.0)
[2023-11-21 15:05] LABS: ACTIVATED PTT 31.5 SECONDS (25.2-36.5)
[2023-11-21 15:18] LABS: POTASSIUM 3.3 mmol/L (3.5-5.1)
[2023-11-21 15:20] LABS: BLOOD UREA NITROGEN 5.3 mg/dL (7-18); CALCIUM 8.4 mg/dL (8.5-10.1)
[2023-11-21 15:21] LABS: ALBUMIN 2.7 g/dl (3.4-5.0)
[2023-11-21 15:23] LABS: CREATININE 0.5 mg/dL (0.55-1.3)
[2023-11-21 15:25] LABS: BILIRUBIN,TOTAL 0.2 mg/dL (0.2-1); TOT PROT 6.9 g/dl (6.4-8.2)
[2023-11-21 15:28] LABS: N-TERMINAL BNP 36.1 pg/ml (5-125)
[2023-11-21 15:32] LABS: ERYTHROCYTE SEDIMENTATION RATE 94 mm/hr (0-20)
[2023-11-21] MEDS ORDERED: POTASSIUM CHLORIDE ORAL LIQUID 20 MEQ/15 ML PO ONE (15:37)
[2023-11-21] MEDS ORDERED: POTASSIUM CHLORIDE ORAL LIQUID 20 MEQ/15 ML ONE (15:43)
[2023-11-21] MEDS ORDERED: BACITRACIN ZINC 15 GM TUBE TOPICAL OINTMENT TP ONE (16:44)
[2023-11-21] MEDS ORDERED: PIPERACILLIN/TAZOB 4.5 GM 4.5 GM in DEXTROSE 5%-WATER 100 ML IVPB ONE (16:52)
[2023-11-21] MEDS ORDERED: VANCOMYCIN 1,000 MG in DEXTROSE 5%-WATER - 250 ML IVPB ONE (16:52)
[2023-11-21] MEDS ORDERED: BACITRACIN ZINC 15 GM TUBE TOPICAL OINTMENT ONE (17:23)
[2023-11-21] MEDS ORDERED: VANCOMYCIN 1 GRAM (PRE-DOCKED) 1,000 MG/250 ML BAG IVPB ONE (17:27)
[2023-11-21] MEDS ORDERED: PIPERACILLIN/TAZOB 4.5 GM 4.5 GM/100 ML BAG IVPB ONE (17:27)
[2023-11-21] MEDS ORDERED: FOLIC ACID INJECTION - 1 MG, THIAMINE HCL 100 MG, MULTIVIT INJECTION ADULT 10 ML in SOD... IVPB ONE (20:49)
[2023-11-21] MEDS ORDERED: LORazepam 1 MG TABLET PO PRN (20:51)
[2023-11-21] MEDS ORDERED: PIPERACILLIN/TAZOB 3.375 GM 3.375 GM/50 ML BAG IVPB ONE (21:28)
[2023-11-21] MEDS: PIPERACILLIN/TAZOB 3.375 GM 3.375 GM in DEXTROSE 5%-WATER - 50 ML IVPB SCH (21:55)
[2023-11-21] MEDS ORDERED: LORazepam 1 MG TABLET ONE (22:12)
[2023-11-21] MEDS ORDERED: LORazepam 1 MG TABLET PO SCH (23:00)
[2023-11-22] MEDS: LORazepam 1 MG TABLET PO SCH ×4 (05:41→23:58)
[2023-11-22] MEDS: PIPERACILLIN/TAZOB 3.375 GM 3.375 GM in DEXTROSE 5%-WATER - 50 ML IVPB SCH ×3 (05:45→17:16)
[2023-11-22 07:57] VITALS: BMI 34.9
[2023-11-22 10:25] LABS: BASO % 0.4 % (0-2.0); EOS % 2.4 % (0-4.5); HEMATOCRIT 27.9 % (35.4-49); HEMOGLOBIN 9.3 GM/dL (11.7-16.9); LYMPH % 32.4 % (8-40); MCH 30.6 pg (25.7-33.7); MCHC 33.4 g/dl (32.0-35.9); MEAN CELL VOLUME 91.6 fl (80-96); MEAN PLT VOLUME 7.9 fl (7.5-11.1); MONO % 11.4 % (3.8-10.2); NEUT % 53.4 % (42.8-82.8); PLATELET COUNT 240 10^3/uL (134-434); RBC 3.05 M/mm3 (4.00-5.60); RDW 15.4 % (11.9-15.9); RETICULOCYTES 1.24 % (0.5-1.5); WHITE BLOOD COUNT 4.1 K/mm3 (4.0-10.0)
[2023-11-22 10:41] LABS: CHLORIDE 105 mmol/L (98-107); POTASSIUM 3.4 mmol/L (3.5-5.1); SODIUM 139 mmol/L (136-145)
[2023-11-22 10:45] LABS: ALBUMIN 2.4 g/dl (3.4-5.0); ANION GAP 7 mmol/L (4-13); BLOOD UREA NITROGEN 5.4 mg/dL (7-18); CO2 27 mmol/L (21-32); GLUCOSE,RANDOM 86 mg/dL (74-106); MAGNESIUM 1.4 mg/dL (1.8-2.4)
[2023-11-22 10:48] LABS: CREATININE 0.6 mg/dL (0.55-1.3); SGOT/AST 15 U/L (15-37); SGPT/ALT 13 U/L (13-61)
[2023-11-22 10:49] LABS: BILIRUBIN,TOTAL 0.4 mg/dL (0.2-1); TOT PROT 6.2 g/dl (6.4-8.2)
[2023-11-22 10:51] LABS: ALK PHOS 51 U/L (45-117)
[2023-11-22] MEDS: THIAMINE HCL 100 MG TABLET (FP) PO SCH (10:51)
[2023-11-22] MEDS: FOLIC ACID 1 MG TABLET (FP) PO SCH (10:53)
[2023-11-22] MEDS: ENOXAPARIN NA (PORCINE) 40 MG/0.4 ML DISP.SYRIN SQ SCH (10:57)
[2023-11-22 15:05] LABS: TOTAL IRON BINDING CAPACITY 183 ug/dL (250-450)
[2023-11-22 15:34] LABS: IRON SERUM 60 ug/dL (50-175)
[2023-11-22] MEDS ORDERED: MAGNESIUM SULF 50% (8.12 MEQ/2 ML-1 GM VIAL) IVPB ONE (18:00)
[2023-11-22] MEDS ORDERED: POTASSIUM CHLORIDE ORAL LIQUID 20 MEQ/15 ML PO ONE (18:00)
[2023-11-22] MEDS ORDERED: PIPERACILLIN/TAZOB 2.25 GM 2.25 GM in DEXTROSE 5%-WATER - 50 ML IVPB SCH (19:45)
[2023-11-23] MEDS ORDERED: LORazepam 0.5 MG TABLET PO PRN
[2023-11-23] MEDS: PIPERACILLIN/TAZOB 2.25 GM 2.25 GM in DEXTROSE 5%-WATER - 50 ML IVPB SCH ×3 (01:13→17:56)
[2023-11-23] MEDS: LORazepam 0.5 MG TABLET PO SCH ×3 (05:55→17:55)
[2023-11-23] MEDS: FOLIC ACID 1 MG TABLET (FP) PO SCH (09:24)
[2023-11-23] MEDS: THIAMINE HCL 100 MG TABLET (FP) PO SCH (09:24)
[2023-11-23 09:29] LABS: METHADONE, UR NEGATIVE (NEGATIVE); OPIATES, URI NEGATIVE (NEGATIVE); PHENCYCLIDINE,URINE NEGATIVE (NEGATIVE); URINE BARBITURATES NEGATIVE (NEGATIVE)
[2023-11-23 09:30] LABS: URINE BENZODIAZEPINES NEGATIVE (NEGATIVE)
[2023-11-23 09:39] LABS: COCAINE, UR POSITIVE (NEGATIVE); URINE AMPHETAMINES NEGATIVE (NEGATIVE)
[2023-11-23 10:43] LABS: POTASSIUM 3.4 mmol/L (3.5-5.1)
[2023-11-23 10:46] LABS: BASO % 0.2 % (0-2.0); EOS % 2.2 % (0-4.5); HEMATOCRIT 29.6 % (35.4-49); HEMOGLOBIN 10.1 GM/dL (11.7-16.9); LYMPH % 30.4 % (8-40); MCH 30.9 pg (25.7-33.7); MEAN CELL VOLUME 90.9 fl (80-96); MEAN PLT VOLUME 7.9 fl (7.5-11.1); NEUT % 56.2 % (42.8-82.8); PLATELET COUNT 235 10^3/uL (134-434); RBC 3.26 M/mm3 (4.00-5.60); RDW 15.4 % (11.9-15.9); WHITE BLOOD COUNT 4.6 K/mm3 (4.0-10.0)
[2023-11-23 10:53] LABS: ALBUMIN 2.5 g/dl (3.4-5.0); BLOOD UREA NITROGEN 5.4 mg/dL (7-18); CALCIUM 8.6 mg/dL (8.5-10.1)
[2023-11-23 10:56] LABS: CREATININE 0.6 mg/dL (0.55-1.3)
[2023-11-23 10:58] LABS: BILIRUBIN,TOTAL 0.2 mg/dL (0.2-1); TOT PROT 6.8 g/dl (6.4-8.2)
[2023-11-23] MEDS: ENOXAPARIN NA (PORCINE) 40 MG/0.4 ML DISP.SYRIN SQ SCH (11:11)
[2023-11-23] MEDS: PIPERACILLIN/TAZOB 3.375 GM 3.375 GM in DEXTROSE 5%-WATER - 50 ML IVPB SCH ×2 (11:11→17:59)
[2023-11-23 13:16] LABS: MAGNESIUM 1.5 mg/dL (1.8-2.4)
[2023-11-23] MEDS ORDERED: KETOROLAC TROMETHAMINE 15 MG/ML VIAL IVPUSH ONE (13:30)
[2023-11-23] MEDS: MULTIVITAMINS (DAILY MVI) TABLET (FP) PO SCH (14:29)
[2023-11-24] MEDS: LORazepam 0.5 MG TABLET PO SCH (00:59)
[2023-11-24] MEDS: PIPERACILLIN/TAZOB 3.375 GM 3.375 GM in DEXTROSE 5%-WATER - 50 ML IVPB SCH ×3 (02:24→17:19)
[2023-11-24] MEDS ORDERED: LORazepam 0.5 MG TABLET PO ONE (05:00)
[2023-11-24 08:54] VITALS: RESP 18
[2023-11-24 08:54] LABS: BASO % 0.4 % (0-2.0); EOS % 2.1 % (0-4.5); HEMATOCRIT 31.3 % (35.4-49); HEMOGLOBIN 10.5 GM/dL (11.7-16.9); LYMPH % 37.1 % (8-40); MCH 30.7 pg (25.7-33.7); MCHC 33.5 g/dl (32.0-35.9); MEAN CELL VOLUME 91.5 fl (80-96); MEAN PLT VOLUME 7.7 fl (7.5-11.1); NEUT % 52.4 % (42.8-82.8); PLATELET COUNT 263 10^3/uL (134-434); RBC 3.42 M/mm3 (4.00-5.60); RDW 15.2 % (11.9-15.9); WHITE BLOOD COUNT 5.1 K/mm3 (4.0-10.0)
[2023-11-24] MEDS: ENOXAPARIN NA (PORCINE) 40 MG/0.4 ML DISP.SYRIN SQ SCH ×2 (09:03→09:15)
[2023-11-24] MEDS: FOLIC ACID 1 MG TABLET (FP) PO SCH (09:04)
[2023-11-24] MEDS: ZINC SULFATE 220 MG CAPSULE (FP) PO SCH (09:04)
[2023-11-24] MEDS: THIAMINE HCL 100 MG TABLET (FP) PO SCH (09:04)
[2023-11-24] MEDS: MULTIVITAMINS (DAILY MVI) TABLET (FP) PO SCH (09:04)
[2023-11-24 09:27] LABS: POTASSIUM 3.6 mmol/L (3.5-5.1)
[2023-11-24 09:33] LABS: CALCIUM 8.5 mg/dL (8.5-10.1)
[2023-11-24 09:34] LABS: ALBUMIN 2.8 g/dl (3.4-5.0); BLOOD UREA NITROGEN 5.9 mg/dL (7-18); MAGNESIUM 1.4 mg/dL (1.8-2.4)
[2023-11-24 09:36] LABS: TOT PROT 7.2 g/dl (6.4-8.2)
[2023-11-24 09:37] LABS: BILIRUBIN,TOTAL 0.2 mg/dL (0.2-1); CREATININE 0.6 mg/dL (0.55-1.3)
[2023-11-24] MEDS: guaiFENesin 600 MG TABLET.ER (FP) PO SCH (22:27)
[2023-11-25] MEDS: PIPERACILLIN/TAZOB 3.375 GM 3.375 GM in DEXTROSE 5%-WATER - 50 ML IVPB SCH ×2 (02:46→09:00)
[2023-11-25] MEDS: guaiFENesin 600 MG TABLET.ER (FP) PO SCH ×2 (09:00→21:42)
[2023-11-25] MEDS: ZINC SULFATE 220 MG CAPSULE (FP) PO SCH (09:00)
[2023-11-25] MEDS: MULTIVITAMINS (DAILY MVI) TABLET (FP) PO SCH (09:00)
[2023-11-25] MEDS: FOLIC ACID 1 MG TABLET (FP) PO SCH (09:00)
[2023-11-25] MEDS: THIAMINE HCL 100 MG TABLET (FP) PO SCH (09:00)
[2023-11-25] MEDS: ENOXAPARIN NA (PORCINE) 40 MG/0.4 ML DISP.SYRIN SQ SCH (09:01)
[2023-11-25] MEDS: levoFLOXacin 750 MG TABLET PO SCH (15:14)
[2023-11-26] MEDS ORDERED: KETOROLAC TROMETHAMINE 15 MG/ML VIAL IVPUSH ONE (03:32)
[2023-11-26] MEDS: levoFLOXacin 750 MG TABLET PO SCH (07:04)
[2023-11-26] MEDS: MULTIVITAMINS (DAILY MVI) TABLET (FP) PO SCH (09:19)
[2023-11-26] MEDS: ZINC SULFATE 220 MG CAPSULE (FP) PO SCH (09:19)
[2023-11-26] MEDS: FOLIC ACID 1 MG TABLET (FP) PO SCH (09:19)
[2023-11-26] MEDS: guaiFENesin 600 MG TABLET.ER (FP) PO SCH (09:19)
[2023-11-26] MEDS: ENOXAPARIN NA (PORCINE) 40 MG/0.4 ML DISP.SYRIN SQ SCH (09:20)
[2023-11-26] MEDS: THIAMINE HCL 100 MG TABLET (FP) PO SCH (09:22)
[2023-11-26 14:32] VITALS: BP 145/88; PULSE 86; TEMP 97.9
== END 2023-11-26 15:45 | disposition other institution (70) | DRG 383 ==
LOC: JER 13:44 → JERBED 19:16 → OBSVTOIN 19:58 → J6S 11-22 04:49
PROVIDERS: ADMIT Internal Medicine; ATTEND Internal Medicine
DX: L03.116 Cellulitis of left lower limb (principal); L97.829 Non-pressure chronic ulcer of other part of left lower leg with unspecified severity; E83.42 Hypomagnesemia; I87.2 Venous insufficiency (chronic) (peripheral); F10.20 Alcohol dependence, uncomplicated; F14.10 Cocaine abuse, uncomplicated; F17.210 Nicotine dependence, cigarettes, uncomplicated; Z59.00 Homelessness unspecified; E87.6 Hypokalemia
CPT/HCPCS: 36415; 73590-TC-LT-FY; 73610-TC-LT-FY; 80053; 80307; 82607; 82728; 82746; 83540; 83550; 83735; 83880; 84100; 85025; 85045; 85610; 85651; 85730; 86140; 86850; 86900; 86901; 87040; 93005; 93010; 93971-TC; 99285-25; G0378